=== PATIENT | female | born 1940 | race Caucasian/White ===

== ENCOUNTER 2021-03-26 11:27 | Observation (INO) | payer OTHER, MEDICARE ==
[2021-03-26] MEDS ORDERED: NA CHLORIDE 0.9% 1,000 ML ONE (11:37)
[2021-03-26] MEDS ORDERED: METOPROLOL TARTRATE 5 MG/5 ML INJ IV ONE (11:47)
[2021-03-26] MEDS ORDERED: MAGNESIUM SULFATE 1 gm IVPB 1 GM/100 ML BAG IV ONE (11:47)
[2021-03-26] MEDS ORDERED: METOPROLOL TAR 25 MG TAB ONE (11:47)
[2021-03-26 12:02] LABS: Potassium 4.6 mmol/L (3.5-5.1)
[2021-03-26 12:06] LABS: Absolute Lymphocytes (CBC) 3.5 K/uL (0.7-4.9); Hematocrit 41.2 % (36.0-45.0); Lymphocytes % 37.4 % (15.3-44.8); MPV 8.1 fL (7.6-11.3); RBC Red Blood Cell Count 4.57 M/uL (3.86-4.86)
[2021-03-26 14:12] LABS: Urine Blood Negative (Negative); Urine Glucose 3+ (Negative); Urine Protein Negative (Negative)
--- NOTE | 2021-03-26 14:19 | EDPHYS ---
Physician Documentation [facility] Name: Margarita Lockett Age: 80 yrs Sex: Female : 1940 Arrival Date: 03/26/2021 Time: 11:29 Bed 5 Private MD: ED Physician Khanh Long HPI: 03/26 14:12 This 80 yrs old Female presents to ER via EMS with complaints of Dizziness. rn 14:12 The patient presents with dizziness, feeling faint, lightheadedness. Onset: The rn symptoms/episode began/occurred today. Modifying factors: The symptoms are alleviated by nothing, the symptoms are aggravated by nothing. Associated signs and symptoms: Pertinent positives: palpitations, Pertinent negatives: abdominal pain, focal weakness, headache, seizure, shortness of breath. Severity of symptoms: At their worst the symptoms were moderate in the emergency department the symptoms are unchanged. The patient has not experienced similar symptoms in the past. The patient has been recently seen by a physician:. Patient states seen yesterday at [facility] emergency room for dizziness, told had a UTI and put on antibiotics. Today felt increase in dizziness and lightheadedness. No syncope. Reports palpitations. No history of arrhythmia. Does not take anticoagulation. Denies vomiting or diarrhea. Denies chest pain.. Historical: - Allergies: : No Known Allergies; herrmann - Home Meds: : aspirin 81 mg Oral tab [Active]; omeprazole 20 mg Oral cpDR 1 cap once daily [Active]; herrmann metformin 500 mg Oral TG24 2 tabs once daily [Active]; glipizide 10 mg Oral tab 1 tab once daily [Active]; carvedilol 6.25 mg oral tab 1 tab 2 times per day [Active]; lisinopril 20 mg Oral tab 1 tab once daily [Active]; amlodipine 5 mg tab 1 tab once daily [Active]; estradiol 2 mg Oral tab 1 tab once daily [Active]; Jardiance 25 mg oral tab 1 tab once daily [Active]; Vitamin D Oral [Active]; Ocuvite Adult 50 Plus 250-5-1 mg oral cap [Active]; pravastatin 80 mg oral tab 1 tab once daily [Active]; Januvia 100 mg oral tab 1 tab once daily [Active]; - PMHx: : Unable to Obtain; herrmann - PSHx: 11:33 Unable to Obtain; herrmann - Immunization history:: Adult Immunizations up to date. - Social history:: Smoking status: Patient denies any tobacco usage or history of. - Family history:: not pertinent. - Hospitalizations: : No recent hospitalization is reported. ROS: 14:12 Constitutional: Negative for fever, chills, and weight loss, Eyes: Negative for injury, rn pain, redness, and discharge, Neck: Negative for injury, pain, and swelling, Cardiovascular: Positive for palpitations Respiratory: Negative for shortness of breath, cough, wheezing, and pleuritic chest pain, Abdomen/GI: Negative for abdominal pain, nausea, vomiting, diarrhea, and constipation, Back: Negative for injury and pain, : Positive for dysuria MS/Extremity: Negative for injury and deformity, Skin: Negative for injury, rash, and discoloration, Neuro: Positive for generalized weakness Exam: 14:12 Constitutional: This is a well developed, well nourished patient who is awake, alert, rn and in no acute distress. Head/Face: Normocephalic, atraumatic. Eyes: Periorbital areas with no swelling, redness, or edema. ENT: Dry mucous membranes Cardiovascular: Tachycardic, regular. No pulse deficits Respiratory: No increased work of breathing, no retractions or nasal flaring. Abdomen/GI: Soft, non-tender Skin: Warm, dry MS/ Extremity: Pulses equal, no cyanosis. Neuro: Awake and alert, GCS 15 Vital Signs: 11:29 BP 136 / 105; Pulse 129; Resp 20; Temp 98.3(O); Pulse Ox 100% ; Weight 68.95 kg; Height herrmann 5 ft. 7 in. (170.18 cm); 13:18 BP 108 / 65; Pulse 90; Resp 16; Pulse Ox 97% ; ic1 13:39 BP 107 / 69; Pulse 87; Resp 15; Pulse Ox 95% ; jl7 18:21 BP 118 / 53; Pulse 66; Resp 16; Pulse Ox 97% on R/A; ic1 19:20 BP 131 / 63; Pulse 64; Resp 18; Pulse Ox 96% on R/A; mk 20:20 BP 135 / 64; Pulse 70; Resp 18; Pulse Ox 95% on R/A; mk 11:29 Body Mass Index 23.81 (68.95 kg, 170.18 cm) herrmann [place] Coma Score: 19:20 Eye Response: spontaneous(4). Verbal Response: oriented(5). Motor Response: obeys mk commands(6). Total: 15. 20:20 Eye Response: spontaneous(4). Verbal Response: oriented(5). Motor Response: obeys mk commands(6). Total: 15. MDM: 11:29 Patient medically screened. rn 14:12 Differential diagnosis: generalized weakness, hypovolemia, idiopathic dizziness, rn Arrhythmia, dehydration, sepsis, infection. Data reviewed: vital signs, nurses notes, lab test result(s), EKG, and as a result, I will admit patient. Counseling: I had a detailed discussion with the patient and/or guardian regarding: the historical points, exam findings, and any diagnostic results supporting the discharge/admit diagnosis, lab results, the need for outpatient follow up, to return to the emergency department if symptoms worsen or persist or if there are any questions or concerns that arise at home. Response to treatment: the patient's symptoms have markedly improved after treatment, and as a result, I will admit patient. Admission orders: after a detailed discussion of the patient's condition and case, the admit orders are written by me. Special discussion:. 03/26 11:29 Order name: CBC with Diff; Complete Time: 13:39 rn 03/26 11:29 Order name: Basic Metabolic Panel; Complete Time: 13:39 03/26 11:29 Order name: Blood Culture Adult (2) rn 03/26 11:29 Order name: Procalcitonin; Complete Time: 13:39 rn 03/26 11:29 Order name: Lactate; Complete Time: 13:39 rn 03/26 11:29 Order name: Urine Culture rn 03/26 11:29 Order name: Urine Microscopic Only rn 03/26 11:30 Order name: COVID-19 SARS RT PCR (Document "Date of Onset" if Symptomatic); Complete rn Time: 13:39 03/26 14:13 Order name: Urine Dipstick-Ancillary [facility] 03/26 15:29 Order name: Comprehensive Metabolic Panel [facility] 03/26 15:29 Order name: Comprehensive Metabolic Panel [facility] 03/26 15:29 Order name: T4 Free [facility] 03/26 15:29 Order name: Thyroid Stimulating Hormone [facility] 03/26 15:29 Order name: CBC with Automated Diff EDMS 03/26 11:29 Order name: IV Start; Complete Time: 11:47 rn 03/26 11:29 Order name: Urine Dipstick-Ancillary (obtain specimen); Complete Time: 14:16 rn 03/26 11:29 Order name: EKG; Complete Time: 11:30 rn 03/26 11:29 Order name: EKG - Nurse/Tech; Complete Time: 11:45 rn 03/26 15:28 Order name: CONS Physician Consult EDUT 03/26 15:29 Order name: 60g Consistent Carbohydrate (ADA 1800/2000) EDMS 03/26 15:29 Order name: CBC with Automated Diff EDMS 03/26 15:29 Order name: Magnesium EDUT 03/26 15:29 Order name: Magnesium EDUT Administered Medications: 11:47 Drug: NS 0.9% 1000 ml Route: IV; Rate: 1000 ml; Site: right antecubital; ic1 11:50 Drug: Metoprolol 25 mg Route: PO; jl7 11:50 Drug: Metoprolol 5 mg Route: IVP; Site: left antecubital; jl7 11:52 Drug: Magnesium Sulfate 1 grams Route: IVPB; Infused Over: 1 hrs; Site: left jl7 antecubital; 11:55 Drug: Metoprolol 5 mg Route: IVP; Site: left antecubital; jl7 12:00 Drug: Metoprolol 5 mg Route: IVP; Site: left antecubital; jl7 Disposition Summary: 03/26/21 14:19 Hospitalization Ordered Hospitalization Status: Observation rn Provider: Ant Long rn Location: Telemetry/[facility] (observation) rn Condition: Stable rn Problem: new rn Symptoms: have improved rn Bed/Room Type: Standard rn Room Assignment: 220(03/26/21 19:43) cg Diagnosis - Unspecified atrial fibrillation - with RVR rn - Dehydration rn - Dizziness and giddiness rn Forms: - Medication Reconciliation Form rn - SBAR form arnp time excluding procedures: 14:12 Critical care time: Bedside Care: 30 minutes, Consultation: 5 minutes. Total time: 35 rn minutes Signatures: Dispatcher Med[facility] EDUT Khanh Long MD MD rn Garcia, Cindy, RN RN cg Leal, Jahala, RN RN jl7 Gila Shi RN RN herrmann Idalmis Logan RN RN ic1 Corrections: (The following items were deleted from the chart) 19:43 14:19 rn cg
--- NOTE | 2021-03-26 14:19 | ER ---
Nurse's Notes [facility] Name: Margarita Lockett Age: 80 yrs Sex: Female : 1940 Arrival Date: 03/26/2021 Time: 11:29 Bed 5 Private MD: Diagnosis: Unspecified atrial fibrillation-with RVR;Dehydration;Dizziness and giddiness Presentation: 03/26 11:29 Chief complaint: Patient states: pt presented to ED with dizziness, and recent UTI herrmann taking antibiotics. Coronavirus screen: Vaccine status: Patient reports receiving the 2nd dose of the covid vaccine. Ebola Screen: Patient denies travel to an Ebola-affected area in the 21 days before illness onset. Initial Sepsis Screen: Does the patient meet any 2 criteria? No. Patient's initial sepsis screen is negative. Does the patient have a suspected source of infection? No. Patient's initial sepsis screen is negative. Risk Assessment: Do you want to hurt yourself or someone else? Patient reports no desire to harm self or others. Onset of symptoms was March 26, 2021. 11: Method Of Arrival: EMS: Post EMS : Acuity: GURPREET 3 herrmann Historical: - Allergies: : No Known Allergies; herrmann - Home Meds: : aspirin 81 mg Oral tab [Active]; omeprazole 20 mg Oral cpDR 1 cap once daily [Active]; herrmann metformin 500 mg Oral TG24 2 tabs once daily [Active]; glipizide 10 mg Oral tab 1 tab once daily [Active]; carvedilol 6.25 mg oral tab 1 tab 2 times per day [Active]; lisinopril 20 mg Oral tab 1 tab once daily [Active]; amlodipine 5 mg tab 1 tab once daily [Active]; estradiol 2 mg Oral tab 1 tab once daily [Active]; Jardiance 25 mg oral tab 1 tab once daily [Active]; Vitamin D Oral [Active]; Ocuvite Adult 50 Plus 250-5-1 mg oral cap [Active]; pravastatin 80 mg oral tab 1 tab once daily [Active]; Januvia 100 mg oral tab 1 tab once daily [Active]; - PMHx: : Unable to Obtain; herrmann - PSHx: : Unable to Obtain; herrmann - Immunization history:: Adult Immunizations up to date. - Social history:: Smoking status: Patient denies any tobacco usage or history of. - Family history:: not pertinent. - Hospitalizations: : No recent hospitalization is reported. Screenin:48 Abuse screen: Denies threats or abuse. Denies injuries from another. Nutritional ic1 screening: No deficits noted. Tuberculosis screening: No symptoms or risk factors identified. Fall Risk None identified. Exposure risk/Travel Screening: None identified. Assessment: 11:48 General: Appears in no apparent distress. Behavior is calm, cooperative, Reports Pt ic1 brought in by EMS for reports of not feeling well. States she was recently treated for a uti and prescribed antibiotics, but symptoms remain. Pt denies fever, sob, or cp. Arrived and placed on color television console monitor where HR results at 145bpm. EKG performed. Pt denies distress. Pain: Denies pain. Neuro: No deficits noted. Cardiovascular: Rhythm is sinus tachycardia Chest pain is denied. Respiratory: No deficits noted. GI: No deficits noted. : Reports burning with urination. EENT: No deficits noted. Derm: No deficits noted. Musculoskeletal: No deficits noted. 12:17 Reassessment: Pt placed on bedpan. Stated she was unable to void. Removed from bedpan. ic1 Family at bedside. 19:20 General: Appears in no apparent distress. Behavior is calm, cooperative. mk 19:20 Neuro: Level of Consciousness is awake, alert, obeys commands. Cardiovascular: Heart mk tones S1 S2 Capillary refill < 3 seconds in bilateral fingers toes Clubbing of nail beds is absent JVD is absent Patient's skin is warm and dry. Pulses are 2+ in right radial artery, right dorsalis pedis artery, left radial artery and left dorsalis pedis artery Rhythm is sinus rhythm Chest pain is denied. Respiratory: Airway is patent Trachea midline Respiratory effort is even, unlabored, Respiratory pattern is regular, symmetrical, Breath sounds are clear. GI: Abdomen is non-distended, Bowel sounds present X 4 quads. : No signs and/or symptoms were reported regarding the genitourinary system. Derm: Skin is fragile, Skin is dry, Skin temperature is warm. Musculoskeletal: Circulation, motion, and sensation intact. Capillary refill < 3 seconds, in bilateral fingers. toes. Range of motion: intact in all extremities. 20:32 Reassessment: Patient appears in no apparent distress at this time. No changes from mk previously documented assessment. Patient states feeling better. Vital Signs: 11:29 BP 136 / 105; Pulse 129; Resp 20; Temp 98.3(O); Pulse Ox 100% ; Weight 68.95 kg; Height herrmann 5 ft. 7 in. (170.18 cm); 13:18 BP 108 / 65; Pulse 90; Resp 16; Pulse Ox 97% ; ic1 13:39 BP 107 / 69; Pulse 87; Resp 15; Pulse Ox 95% ; jl7 18:21 BP 118 / 53; Pulse 66; Resp 16; Pulse Ox 97% on R/A; ic1 19:20 BP 131 / 63; Pulse 64; Resp 18; Pulse Ox 96% on R/A; mk 20:20 BP 135 / 64; Pulse 70; Resp 18; Pulse Ox 95% on R/A; mk 11:29 Body Mass Index 23.81 (68.95 kg, 170.18 cm) herrmann Vitals: 11:48 Cardiac Rhythm Assessment Regular Sinus tach. ic1 [place] Coma Score: 19:20 Eye Response: spontaneous(4). Verbal Response: oriented(5). Motor Response: obeys commands(6). Total: 15. 20:20 Eye Response: spontaneous(4). Verbal Response: oriented(5). Motor Response: obeys mk commands(6). Total: 15. ED Course: 11:29 Patient arrived in ED. rn 11:29 Khanh Long MD is Attending Physician. rn 11:33 Triage completed. herrmann 11:33 Arm band placed on. herrmann 11:46 Idalmis Logan RN is Primary Nurse. ic1 11:47 Procalcitonin Sent. ic1 11:47 Blood Culture Adult (2) Sent. ic1 11:47 Basic Metabolic Panel Sent. ic1 11:47 CBC with Diff Sent. ic1 11:47 Inserted saline lock: 20 gauge in right antecubital area, using aseptic technique. ic1 Blood collected. 11:47 Inserted saline lock: 20 gauge in left antecubital area, using aseptic technique. Blood ic1 collected. 11:48 Patient has correct armband on for positive identification. Bed in low position. Call ic1 light in reach. Side rails up X2. Adult w/ patient. 14:18 Ant Long MD is Hospitalizing Provider. rn 20:32 No provider procedures requiring assistance completed. Patient admitted, IV remains in mk place. Administered Medications: 11:47 Drug: NS 0.9% 1000 ml Route: IV; Rate: 1000 ml; Site: right antecubital; ic1 11:50 Drug: Metoprolol 25 mg Route: PO; jl7 11:50 Drug: Metoprolol 5 mg Route: IVP; Site: left antecubital; jl7 11:52 Drug: Magnesium Sulfate 1 grams Route: IVPB; Infused Over: 1 hrs; Site: left jl7 antecubital; 11:55 Drug: Metoprolol 5 mg Route: IVP; Site: left antecubital; jl7 12:00 Drug: Metoprolol 5 mg Route: IVP; Site: left antecubital; jl7 Outcome: 14:19 Decision to Hospitalize by Provider. rn 19:45 Admitted to Med/surg Report called to Attempted to call report. Was told the nurse frank stanley would be the accepting nurse. 20:32 Admitted to Med/surg Report called to Janina REID 20:32 Condition: stable 20:32 Patient left the ED. Signatures: Khanh Long MD MD rn Leal, Jahala, RN RN jl7 Wood, Tiffany [facility] Kyra-StagerGila RN Bridget Park RN Idalmis Dewitt RN RN ic1 Corrections: (The following items were deleted from the chart) 20:29 19:20 BP 135 / 64; Pulse 70bpm; Resp 18bpm; Pulse Ox 95% RA; [facility] 20:32 19:20 General: Appears in no apparent distress. Behavior is calm, cooperative, [facility] 20:32 19:20 Cardiovascular: Heart tones S1 S2 present Rhythm is sinus rhythm [facility]
[2021-03-26 14:38] LABS: Urine Bacteria 20-50 /HPF (<20); Urine RBC NONE SEEN /HPF (NONE SEEN)
[2021-03-26] MEDS ORDERED: ONDANSETRON 4 MG/2 ML VIAL IV PRN (15:28)
--- NOTE | 2021-03-26 15:36 | P.HP ---
Certification for Inpatient Patient admitted to: Observation With expected LOS: <2 Midnights Practitioner: I am a practitioner with admitting privileges, knowledge of patient current condition, hospital course, and medical plan of care. Services: Services provided to patient in accordance with Admission requirements found in Title 42 Section 412.3 of the Code of Federal Regulations Patient History Date of Service: 03/26/21 Reason for admission: afib History of Present Illness: 80yo M, PMH: HTN, NIDDM2, GERD Presents to ED due to 3 days of progressively worsening dizziness. Dizziness mostly occurred with ambulation/activity and subsided once resting. Presented to [facility] yesterday and diagnosed with UTI. Prescribed bactrim and discharged home. She reported dysuria that began ~2 days ago. Noted to some blood in her urine at [place], but non since then. Denies fever/chills/nausea/vomiting/diarrhea. In the ED here, she was noted to be in afib with RVR to 130s. Received several doses of IV metoprolol and converted to sinus rhythm. Labs rather unremarkable except for slight elevated Cr. Urine pending. ED physician requests admission for further evaluation / management. - Past Medical/Surgical History -: HTN -: NIDDM2 -: GERD -: Hiatal hernia -: cholecystectomy -: appendectomy -: hysterectomy -: rotator cuff - Family History Family History: Reviewed- Non-Contributory - Social History Smoking Status: Never smoker Alcohol use: No Place of Residence: Home Review of Systems 10-point ROS is otherwise unremarkable Physical Examination - Physical Exam General: Alert, In no apparent distress, Oriented x3 HEENT: Mucous membr. moist/pink, Sclerae nonicteric Neck: Supple Respiratory: Clear to auscultation bilaterally, Normal air movement Cardiovascular: No edema, Regular rate/rhythm (occasional extra beat), No murmurs Gastrointestinal: Soft and benign, Non-distended, No tenderness Musculoskeletal: No tenderness Integumentary: No significant lesion, No tenderness/swelling Neurological: Normal speech, Normal strength at 5/5 x4 extr, Normal affect - Studies Laboratory Data (last 24 hrs) 03/26/21 11:35: Sodium 135 L, Potassium 4.6, BUN 21 H, Creatinine 1.46 H, Glucose 165 H 03/26/21 11:35: WBC 9.20, Hgb 13.8, Hct 41.2, Plt Count 327 Assessment and Plan - Advance Directives Does patient have a Living Will: No Does patient have a Durable POA for Healthcare: No Physician Review Additional Text: Problem List Afib with RVR; new diagnosis UTI, with hematuria Hypertension NIDDM 2 GERD Possible ANTIONETTE Received 3 doses of IV metoprolol, 25 mg p.o. metoprolol Will continue on 50 mg Lopressor twice daily Started Xarelto, [id number] score greater than 2 Denies any prior bleeding history, no frequent falls Monitor on telemetry Cardiology consulted, recommend echocardiogram tomorrow Continue Bactrim for treatment of UTI that was diagnosed stand-alone ER yesterday Obtain UA today, check for microscopic hematuria Suspect A. fib with RVR was causing patient's dizziness Need to confirm home medications, restart as appropriate IV fluids overnight for possible ANTIONETTE VTE: Xarelto Code: DNR Dispo: Anticipate DC home in 1-2 days Time Spent Managing Pts Care (In Minutes): 60
[2021-03-26 16:26] LABS: Thyroid Stimulating Hormone 1.48 uIU/mL (0.360-3.740)
[2021-03-26] MEDS: INSULIN -REGULAR HUMAN 50 UNIT/0.5 ML ML SQ SCH ×2 (16:30→21:00)
[2021-03-26 17:54] VITALS: O2SAT 98
[2021-03-26] MEDS ORDERED: RIVAROXABAN 10 MG TABLET PO SCH (20:05)
[2021-03-26 21:30] VITALS: BMI 25.2
[2021-03-26] MEDS: SMZ./TMP. 800/160 MG TABLET PO SCH (21:32)
[2021-03-26] MEDS: METOPROLOL TAR 50 MG TAB PO SCH (21:33)
[2021-03-26] MEDS: NA CHLORIDE 0.9% 1,000 ML IV SCH (21:34)
[2021-03-27] MEDS: METOPROLOL TAR 50 MG TAB PO SCH (05:37)
[2021-03-27] MEDS: NA CHLORIDE 0.9% 1,000 ML IV SCH (05:39)
--- NOTE | 2021-03-27 06:07 | P.PN ---
Date of Service: 03/27/21
[2021-03-27 06:32] LABS: Absolute Lymphocytes (CBC) 3.1 K/uL (0.7-4.9); Hematocrit 36.8 % (36.0-45.0); Lymphocytes % 34.8 % (15.3-44.8); MPV 7.8 fL (7.6-11.3); RBC Red Blood Cell Count 4.11 M/uL (3.86-4.86)
[2021-03-27 06:46] LABS: Albumin 2.5 g/dL (3.4-5.0); Bilirubin Total 0.2 mg/dL (0.2-1.0); Potassium 4.3 mmol/L (3.5-5.1); Protein, Total 5.8 g/dL (6.4-8.2)
[2021-03-27] MEDS: INSULIN -REGULAR HUMAN 50 UNIT/0.5 ML ML SQ SCH ×2 (07:30→11:30)
--- NOTE | 2021-03-27 08:04 | EKG ---
Test Date: 2021-03-26 Test Time: 11:33:53 Senior Bi Architect: UVALDO MEASUREMENT RESULTS: Intervals: Rate: 141 TX: QRSD: 82 QT: 356 QTc: 545 Coyle: P: TX: QRS: 25 T: 251 INTERPRETIVE STATEMENTS: Atrial flutter with 2:[address] abnormality, possible inferior subendocardial injury Abnormal ECG Compared to ECG 05/09/1992 10:21:00 ST (T wave) deviation now present Sinus rhythm no longer present Electronically Signed On 03-27-21 08:02:48 LIFT TEAM TECHNICIAN by Hakan Lehman
[2021-03-27] MEDS: SMZ./TMP. 800/160 MG TABLET PO SCH (09:15)
--- NOTE | 2021-03-27 11:15 | CON ---
Date of Consultation: 03/27/2021 Reason For Consultation: Atrial fibrillation and dizziness. History Of Present Illness: Ms. Lockett is a 80. No previous cardiac history. Came in with godfrey chavez, was found to have UTI and atrial fibrillation. Unknown if the AFib is new or old. She does ta ke beta-blockers at home. She is on Xarelto now. She is asymptomatic now. She is a do not resuscit ate. Denies any chest pain, nausea, vomiting, diaphoresis, PND, orthopnea, pedal edema, palpitations , or syncope. Symptoms occurred while she was standing up. Allergies: SHE IS ALLERGIC TO PENICILLIN. Review of Systems: Negative. Social History: Negative. Family History: Negative. Medications: At home include pravastatin, Pepcid, metformin, Coreg, aspirin, Norvasc, lisinopril, hy drochlorothiazide, Jardiance, glipizide. The patient sees Dr. Roderick Gregg for primary care. Physical Examination: General: Very pleasant, in no acute distress Vital Signs: Atrial fibrillation, rate 60, normal blood pressure. Afebrile. HEENT: Negative. Neck: Supple without any bruit, lymphadenopathy, JVD, or thyromegaly. Chest: Clear. Cardiac: Revealed irregularly irregular rhythm and rate without any murmurs, gallops, or rubs. Abdomen: Benign. Extremities: Revealed no clubbing, cyanosis, or edema. Diagnostic Data: Showed a creatinine 1.46. EKG showed atrial fibrillation. Chest x-ray is negative . Glucose was 178. Impression And Plan: 1.Dizziness, possibly secondary to atrial fibrillation or orthostasis. I agree with her present reg imen. I would keep her same medications at home and add Xarelto. Obtain a 2D echocardiogram. Arran for an outpatient stress test. Can go home whenever it is okay with Dr. Long. 2.Urinary tract infection. She needs to be treated for that. She is already on Bactrim. 3.Renal insufficiency. We need to observe. 4.Diabetes, fairly well controlled. 5.Hypertension, well controlled. 6.Gastroesophageal reflux disease. 7.Dyslipidemia. Again, get an echocardiogram. Continue Xarelto. Continue beta-ricardo. Send her home after the echo. I will see her in the office soon and arrange for the stress test. As far as a trial fibrillation and she stays asymptomatic, we will keep her on Xarelto and beta-ricardo. If she develops symptoms, we will consider event monitor, cardioversion or further workup down the road. CHEPE/HEBER Voice ID: [id number] Report ID: [id number]
[2021-03-27 13:18] VITALS: BP 133/64; TEMP 98
--- NOTE | 2021-03-27 14:55 | ECHO ---
HEIGHT: 5 ft 7 in WEIGHT: 161 lb 2 oz DATE OF STUDY: 03/27/[address]: Ant Long MD 2-DIMENSIONAL: YES M.MODE: YES DOPPLER: YES COLOR FLOW: YES TDS: NO PORTABLE: NO DEFINITY: NO BUBBLE STUDY: NO DIAGNOSIS: NEW ONSET OF ATRIAL FIBRILLATION CARDIAC HISTORY: CATHERIZATION: NO SURGERY: NO PROSTHETIC VALVE: NO PACEMAKER: NO MEASUREMENTS (cm) DIASTOLIC (NORMALS) SYSTOLIC (NORMALS) IVSd 1.1 (0.6-1.2) LA Diam 2.4 (1.9-4.0) LVEF 55-60% LVIDd 3.7 (3.5-5.7) LVIDs 2.7 (2.0-3.5) %FS 26% LVPWd 1.2 (0.6-1.2) Ao Diam (2.0-3.7) 2 DIMENSIONAL ASSESSMENT: RIGHT ATRIUM: NORMAL LEFT ATRIUM: NORMAL RIGHT VENTRICLE: NORMAL LEFT VENTRICLE: NORMAL TRICUSPID VALVE: NORMAL MITRAL VALVE: NORMAL PULMONIC VALVE: NORMAL AORTIC VALVE: CALCIFICATION PERICARDIAL EFFUSION: NONE AORTIC ROOT: NORMAL LEFT VENTRICULAR WALL MOTION: NORMAL DOPPLER/COLOR FLOW: MILD MITRAL REGURGITATION. COMMENTS: NORMAL LEFT VENTRICULAR EJECTION FRACTION 55-60%. MILD MITRAL REGURGITATION. AORTIC VALVE IS MILDLY CALCIFIED WITH NO AORTIC STENOSIS. TECHNOLOGIST: Radha VARGAS
--- NOTE | 2021-03-27 17:36 | P.DS ---
Admission Date: 03/26/21 Discharge Date: 03/27/21 Disposition: ROUTINE DISCHARGE Discharge Condition: GOOD Reason for Admission: afib Consultations: Cardiology - Dr. Lehman Procedures: Problem List Afib with RVR; new diagnosis UTI, with hematuria Hypertension NIDDM 2 GERD Possible ANTIONETTE Brief History of Present Illness: 80yo M, PMH: HTN, NIDDM2, GERD Presents to ED due to 3 days of progressively worsening dizziness. Dizziness mostly occurred with ambulation/activity and subsided once resting. Presented to [facility] yesterday and diagnosed with UTI. Prescribed bactrim and discharged home. She reported dysuria that began ~2 days ago. Noted to some blood in her urine at [place], but non since then. Denies fever/chills/nausea/vomiting/zuleyma rrhea. In the ED here, she was noted to be in afib with RVR to 130s. Received several doses of IV metoprolol and converted to sinus rhythm. Labs rather unremarkable except for slight elevated Cr. Urine pending. ED physician requests admission for further evaluation / management. Hospital Course: Found to have Afib. This improved with IV beta ricardo, and remained stable after switching to PO. Evaluated by Cardiology, underwent an echocardiogram. Deemed stable for discharge home, to continue home medications as previously prescribed. No change in carvedilol dosing. New prescription for xarelto has been sent. Follow up with Cardiology, Dr. Lehman in ~1-2 weeks. To review echocardiogram results at follow up visit. Vital Signs/Physical Exam: Physical exam GEN: Alert, oriented, NAD HEENT: Normal conjunctiva, sclera anicteric CV: Regular rate and rhythm, no edema Pulm: Nonlabored respirations on room air ABD: Soft, nontender, nondistended Neuro: Normal speech, normal affect Temp Pulse Resp BP Pulse Ox 98 F 64 18 133/64 96 03/27/21 12:00 03/27/21 12:00 03/27/21 12:00 03/27/21 12:00 03/27/21 12:00 Laboratory Data at Discharge: WBC 9.00 K/uL (4.3-10.9) 03/27/21 05:55 Hgb 12.7 g/dL (12.0-15.0) 03/27/21 05:55 Hct 36.8 % (36.0-45.0) 03/27/21 05:55 Plt Count 301 K/uL (152-406) 03/27/21 05:55 Sodium 136 mmol/L (136-145) 03/27/21 05:55 Potassium 4.3 mmol/L (3.5-5.1) 03/27/21 05:55 BUN 19 mg/dL (7-18) H 03/27/21 05:55 Creatinine 1.13 mg/dL (0.55-1.3) 03/27/21 05:55 Glucose 99 mg/dL (74-106) 03/27/21 05:55 Magnesium 2.0 mg/dL (1.8-2.4) 03/27/21 05:55 Total Bilirubin 0.2 mg/dL (0.2-1.0) 03/27/21 05:55 AST 10 U/L (15-37) L 03/27/21 05:55 ALT 14 U/L (12-78) 03/27/21 05:55 Alkaline Phosphatase 59 U/L (45-117) 03/27/21 05:55 Home Medications: Amlodipine [Norvasc*] 10 mg PO DAILY 03/27/21 Aspirin [Aspirin EC] 1 tab PO DAILY 03/27/21 Empagliflozin [Jardiance] 1 tab PO DAILY 03/27/21 Glipizide [Glipizide Xl] 1 tab PO DAILY 03/27/21 Lisinopril/Hydrochlorothiazide [Lisinopril-Hctz 20-25 mg Tab] 1 tab PO DAILY 03/27/21 Metformin ER [Glucophage ER*] 1,000 mg PO BID 03/27/21 Multivit-Min/FA/Lycopen/Lutein [Centrum Silver Tablet] 1 tab PO DAILY 03/27/21 Omeprazole 20 mg PO DAILY 03/27/21 Pravastatin Sodium 1 tab PO BEDTIME 03/27/21 Rivaroxaban [Xarelto] 20 mg PO DAILY AT SUPPER 30 Days #30 tablet 03/27/21 Sitagliptin Phosphate [Januvia*] 1 tab PO BEDTIME 03/27/21 Vit A,C & E/Lutein/Minerals [Ocuvite Tablet] 1 tab PO BEDTIME 03/27/21 Vitamin D [Drisdol*] 1 tab PO BEDTIME 03/27/21 carvediloL [Carvedilol] 1 tab PO BID 03/27/21 estradioL [Estradiol] 2 mg PO DAILY 03/27/21 New Medications: Rivaroxaban [Xarelto] 20 mg PO DAILY AT SUPPER 30 Days #30 tablet Physician Discharge Instructions: Found to have Afib. This improved with IV beta ricardo, and remained stable after switching to pills. Evaluated by Cardiology, underwent an echocardiogram. Deemed stable for discharge home, to continue home medications as previously prescribed. No change in carvedilol dosing. New prescription for xarelto has been sent. Follow up with Cardiology, Dr. Lehman in ~1-2 weeks. To review echocardiogram results at follow up visit. Diet: AHA Activity: Ad rehan Followup: Hakan Lehman MD [ACTIVE - CAN ADMIT] - 1-2 Weeks (alignment technician- call to schedule an appointment ) Alex Gregg DO [Primary Care Provider] - 1 Week (call to schedule an appointment ) Time spent managing pt's care (in minutes): 45
== END 2021-03-27 12:50 | disposition home or self-care (01) ==
LOC: ER 11:27 → ERHOLD 15:27 → 2ND 19:46
PROVIDERS: ADMIT Hospitalist; ATTEND Hospitalist
DX: I48.91 Unspecified atrial fibrillation (principal); N39.0 Urinary tract infection, site not specified; R31.9 Hematuria, unspecified; E86.0 Dehydration; I10 Essential (primary) hypertension; N28.9 Disorder of kidney and ureter, unspecified; R42 Dizziness and giddiness; E11.9 Type 2 diabetes mellitus without complications; K21.9 Gastro-esophageal reflux disease without esophagitis; K44.9 Diaphragmatic hernia without obstruction or gangrene; E78.5 Hyperlipidemia, unspecified; Z66 Do not resuscitate; Z20.822 Contact with and (suspected) exposure to COVID-19; Z79.82 Long term (current) use of aspirin; Z88.0 Allergy status to penicillin; Z90.49 Acquired absence of other specified parts of digestive tract; Z90.710 Acquired absence of both cervix and uterus
CPT/HCPCS: 93005 ×2; 93306; 87040 ×2; 87088; 85025 ×2; 87086; 80048; 36415 ×2; 83735; 82947 ×3; 83605; 84443; 84439; 80053; 84145; 94760; 96375; 96374; 99285; U0003; J3475; J7030 ×3; 81003; 81015; G0378

== ENCOUNTER 2021-03-28 15:20 | Observation (INO) | payer OTHER, MEDICARE ==
[2021-03-28 15:56] LABS: Absolute Lymphocytes (CBC) 3.6 K/uL (0.7-4.9); Hematocrit 40.1 % (36.0-45.0); Lymphocytes % 38.4 % (15.3-44.8); MPV 8.1 fL (7.6-11.3); RBC Red Blood Cell Count 4.48 M/uL (3.86-4.86)
[2021-03-28 15:57] LABS: Protime INR 0.79
--- NOTE | 2021-03-28 16:09 | RAD REPORT ---
EXAM DESCRIPTION: RAD - Chest Single View - 03/28/2021 4:03 pm CLINICAL HISTORY: PALPITATIONS Chest pain. COMPARISON: No comparisons FINDINGS: Portable technique limits examination quality. Interstitial markings are mildly prominent in the lung bases most compatible with a viral infection. The heart is upper limit of normal in size. No displaced fractures.
[2021-03-28 16:15] LABS: ALT/SGPT 16 U/L (12-78); AST/SGOT 13 U/L (15-37); Albumin 2.7 g/dL (3.4-5.0); Alkaline Phosphatase 69 U/L (45-117); BUN Blood Urea Nitrogen 20 mg/dL (7-18); Bicarbonate 25 mmol/L (21-32); Bilirubin Direct < 0.1 mg/dL (0-0.2); Bilirubin Total 0.3 mg/dL (0.2-1.0); Glucose Level 210 mg/dL (74-106); Magnesium 1.9 mg/dL (1.8-2.4); NT PRO-BNP 1084 pg/mL (<450); Potassium 3.9 mmol/L (3.5-5.1); Protein, Total 6.4 g/dL (6.4-8.2); Sodium Level 134 mmol/L (136-145)
[2021-03-28] MEDS ORDERED: dilTIAZem HCL 25 MG/5 ML VIAL IV ONE (16:22)
--- NOTE | 2021-03-28 18:10 | ER ---
Nurse's Notes [facility] Name: Margarita Lockett Age: 80 yrs Sex: Female : 1940 Arrival Date: 03/28/2021 Time: 15:20 Bed 8 Private MD: Diagnosis: Atrial fibrillation with RVR Presentation: 03/28 15:36 Chief complaint: Patient states: was just d/c from hospital for Afib on Saturday , iw started feeling her heart fluttering at 1:30 pm today, is currently on xarelto 29 nightly and carvedilol 6.25 BID. 15:43 Coronavirus screen: At this time, the client does not indicate any symptoms associated iw with coronavirus-19. Ebola Screen: Patient negative for fever greater than or equal to 101.5 degrees Fahrenheit, and additional compatible Ebola Virus Disease symptoms Patient denies exposure to infectious person. Patient denies travel to an Ebola-affected area in the 21 days before illness onset. No symptoms or risks identified at this time. Initial Sepsis Screen: Does the patient meet any 2 criteria? No. Patient's initial sepsis screen is negative. Does the patient have a suspected source of infection? No. Patient's initial sepsis screen is negative. Risk Assessment: Do you want to hurt yourself or someone else? Patient reports no desire to harm self or others. Onset of symptoms was March 28, 2021. 15:43 Method Of Arrival: Wheelchair 15:43 Acuity: GURPREET 2 iw Historical: - Allergies: 15:39 PENICILLINS; iw - Home Meds: 15:39 amlodipine 5 mg oral tab once daily [Active]; aspirin 81 mg Oral tab [Active]; iw carvedilol 6.25 mg Oral tab 1 tab 2 times per day [Active]; estradiol 2 mg Oral tab 1 tab once daily [Active]; glipizide 10 mg Oral tab 1 tab once daily [Active]; Januvia 100 mg Oral tab 1 tab once daily [Active]; Jardiance 25 mg Oral tab 1 tab once daily [Active]; lisinopril 20 mg Oral tab 1 tab once daily [Active]; metformin 500 mg Oral TG24 2 tabs once daily [Active]; Ocuvite Adult 50 Plus 250-5-1 mg Oral cap [Active]; omeprazole 20 mg Oral cpDR 1 cap once daily [Active]; pravastatin 80 mg Oral tab 1 tab once daily [Active]; Vitamin D Oral [Active]; - PMHx: 15:39 Diabetes mellitus; iw - Immunization history:: Client reports receiving the 2nd dose of the Covid vaccine. - Social history:: Smoking status: Patient denies any tobacco usage or history of. Screenin:41 Abuse screen: Denies threats or abuse. Nutritional screening: No deficits noted. vg1 Tuberculosis screening: No symptoms or risk factors identified. Fall Risk No fall in past 12 months (0 pts). No secondary diagnosis (0 pts). IV access (20 points). Ambulatory Aid- None/Bed Rest/Nurse Assist (0 pts). Gait- Normal/Bed Rest/Wheelchair (0 pts) Mental Status- Oriented to own ability (0 pts). Total Mccoy Fall Scale indicates No Risk (0-24 pts). Assessment: 15:39 General: Appears in no apparent distress. uncomfortable, Behavior is calm, cooperative. vg1 Pain: Denies pain. Neuro: Level of Consciousness is awake, alert, obeys commands, Oriented to person, place, time, situation. Cardiovascular: Patient's skin is warm and dry. Rhythm is atrial fibrillation with rapid ventricular response Chest pain is denied. Respiratory: Airway is patent Respiratory effort is even, unlabored, Respiratory pattern is regular, Denies shortness of breath. GI: Reports nausea, Patient currently denies vomiting. : No signs and/or symptoms were reported regarding the genitourinary system. EENT: No signs and/or symptoms were reported regarding the EENT system. Derm: Skin is pink, warm \T\ dry. Musculoskeletal: Circulation, motion, and sensation intact. 16:43 Reassessment: Patient appears in no apparent distress at this time. Patient and/or vg1 family updated on plan of care and expected duration. Pain level reassessed. Patient is alert, oriented x 3, equal unlabored respirations, skin warm/dry/pink. 17:45 Reassessment: Patient appears in no apparent distress at this time. Patient and/or vg1 family updated on plan of care and expected duration. Pain level reassessed. Patient is alert, oriented x 3, equal unlabored respirations, skin warm/dry/pink. states 'I can still feel the flutters'. Patient denies pain at this time. 18:46 Reassessment: Patient appears in no apparent distress at this time. No changes from vg1 previously documented assessment. Patient is alert, oriented x 3, equal unlabored respirations, skin warm/dry/pink. 20:13 Reassessment: pt states she isn't feeling too great and is fatigued. assisted pt with as6 bathroom via WC. Cardiovascular: Rhythm is atrial fibrillation. Vital Signs: 15:42 BP 134 / 75; Pulse 143; Resp 18 S; Pulse Ox 100% on R/A; Weight 73.48 kg; Height 5 ft. iw 7 in. (170.18 cm); 15:44 Temp 97.6; vg1 16:30 BP 101 / 56; Pulse 88; Resp 16; Pulse Ox 98% ; vg1 17:02 BP 110 / 57; Pulse 88; Resp 20; Pulse Ox 97% ; Pain 0/10; jh6 17:30 BP 107 / 53; Pulse 121; Resp 25; Pulse Ox 97% ; vg1 18:33 BP 98 / 68; Pulse 115; vg1 18:40 BP 114 / 90; Pulse 89; vg1 20:14 BP 108 / 97; Pulse 67; Resp 21 S; Pulse Ox 98% on R/A; as6 15:42 Body Mass Index 25.37 (73.48 kg, 170.18 cm) iw ED Course: 15:20 Patient arrived in ED. as 15:38 Danii Martins, RN is Primary Nurse. vg1 15:39 Alex Gregg MD is Attending Physician. sp3 15:41 Patient has correct armband on for positive identification. Placed in gown. Bed in low vg1 position. Call light in reach. Side rails up X 1. Adult w/ patient. field operations farm manager on. Pulse ox on. NIBP on. 15:41 Initial lab(s) drawn, by me, sent to lab. Inserted saline lock: 22 gauge in right vg1 antecubital area, using aseptic technique. ,using aseptic technique. completed by ED staff Blood collected. 15:42 Arm band placed on. iw 15:43 Triage completed. iw 16:03 XRAY Chest (1 view) In Process Unspecified. EDMS 18:09 Dada Yeung is Hospitalizing Provider. sp3 19:09 Primary Nurse role handed off by Danii Martins, RN mw2 19:50 Brent Pimentel, RN is Primary Nurse. as6 03/29 02:11 No provider procedures requiring assistance completed. Patient admitted, IV remains in as6 place. Administered Medications: 03/28 16:26 Drug: Cardizem (diltiazem) 10 mg Route: IVP; Site: right antecubital; jh6 03/29 02:12 Follow up: Response: No adverse reaction as6 03/28 18:37 Drug: Sotalol 80 mg Route: PO; vg1 03/29 02:12 Follow up: Response: No adverse reaction as6 03/28 18:38 Drug: Digoxin 0.5 mg Route: IVP; Site: right antecubital; vg1 03/29 02:12 Follow up: Response: No adverse reaction as6 Outcome: 03/28 18:09 Decision to Hospitalize by Provider. sp3 03/29 02:11 Admitted to ER Hold. [facility]. as6 Condition: stable 18:04 Patient left the ED. herrmann Signatures: Dispatcher [employer] Balbina Olson Irene, RN FRANKLIN Rukhsana Johnson mw2 Danii Martins RN RN vg1 Alex Gregg MD MD sp3 Brent Pimentel, FRANKLIN REID as6 Rae Downing RN RN 6 Gila Shi RN RN
--- NOTE | 2021-03-28 18:10 | EDPHYS ---
Physician Documentation [facility] Name: Margarita Lockett Age: 80 yrs Sex: Female : 1940 Arrival Date: 03/28/2021 Time: 15:20 Bed 8 Private MD: ED Physician Alex Gregg HPI: 03/28 17:35 This 80 yrs old Female presents to ER via Wheelchair with complaints of afib. sp3 17:35 A 80-year-old female with a history of diabetes and recent atrial fibrillation admitted sp3 and discharged by Dr. Lowry placed on Xarelto but states that when she was discharged she was in a normal rhythm and not in atrial fibrillation. Today insidiously approximately 3 to 4 hours prior to arrival she started getting palpitations presents to the ED for evaluation. Here her heart rate is in the 140s and irregular rhythm but she states that she is having no pain including chest pain, shortness of breath, back pain, nausea, jaw pain, left arm pain, abdominal pain, nausea, vomiting, diarrhea, or any other somatic symptoms at this time. Patient received a full work-up including cardiac consultation, echocardiogram, and ACS rule out while in the hospital.. Historical: - Allergies: 15:39 PENICILLINS; iw - Home Meds: 15:39 amlodipine 5 mg oral tab once daily [Active]; aspirin 81 mg Oral tab [Active]; iw carvedilol 6.25 mg Oral tab 1 tab 2 times per day [Active]; estradiol 2 mg Oral tab 1 tab once daily [Active]; glipizide 10 mg Oral tab 1 tab once daily [Active]; Januvia 100 mg Oral tab 1 tab once daily [Active]; Jardiance 25 mg Oral tab 1 tab once daily [Active]; lisinopril 20 mg Oral tab 1 tab once daily [Active]; metformin 500 mg Oral TG24 2 tabs once daily [Active]; Ocuvite Adult 50 Plus 250-5-1 mg Oral cap [Active]; omeprazole 20 mg Oral cpDR 1 cap once daily [Active]; pravastatin 80 mg Oral tab 1 tab once daily [Active]; Vitamin D Oral [Active]; - PMHx: 15:39 Diabetes mellitus; iw - Immunization history:: Client reports receiving the 2nd dose of the Covid vaccine. - Social history:: Smoking status: Patient denies any tobacco usage or history of. ROS: 17:37 Constitutional: Negative for fever, chills, and weight loss, Eyes: Negative for injury, sp3 pain, redness, and discharge, ENT: Negative for injury, pain, and discharge, Neck: Negative for injury, pain, and swelling, Respiratory: Negative for shortness of breath, cough, wheezing, and pleuritic chest pain, Abdomen/GI: Negative for abdominal pain, nausea, vomiting, diarrhea, and constipation, Back: Negative for injury and pain, MS/Extremity: Negative for injury and deformity, Skin: Negative for injury, rash, and discoloration, Neuro: Negative for headache, weakness, numbness, tingling, and seizure, Psych: Negative for depression, anxiety, suicide ideation, homicidal ideation, and hallucinations, Allergy/Immunology: Negative for hives, rash, and allergies. 17:37 All other systems are negative. Exam: 17:37 Constitutional: This is a well developed, well nourished patient who is awake, alert, sp3 and in no acute distress. Head/Face: Normocephalic, atraumatic. Eyes: Pupils equal round and reactive to light, extra-ocular motions intact. Lids and lashes normal. Conjunctiva and sclera are non-icteric and not injected. Cornea within normal limits. Periorbital areas with no swelling, redness, or edema. ENT: Nares patent. No nasal discharge, no septal abnormalities noted. External auditory canals are clear. Oropharynx with no redness, swelling, or masses, exudates, or evidence of obstruction, uvula midline. Mucous membranes moist. Neck: Trachea midline, no thyromegaly or masses palpated, and no cervical lymphadenopathy. Supple, full range of motion without nuchal rigidity, or vertebral point tenderness. No Meningismus. Chest/axilla: Normal chest wall appearance and motion. Nontender with no deformity. No lesions are appreciated. Respiratory: Lungs have equal breath sounds bilaterally, clear to auscultation and percussion. No rales, rhonchi or wheezes noted. No increased work of breathing, no retractions or nasal flaring. Abdomen/GI: Soft, non-tender, with normal bowel sounds. No distension or tympany. No guarding or rebound. No evidence of tenderness throughout. Back: No spinal tenderness. No costovertebral tenderness. Full range of motion. Skin: Warm, dry with normal turgor. Normal color with no rashes, no lesions, and no evidence of cellulitis. MS/ Extremity: Pulses equal, no cyanosis. Neurovascular intact. Full, normal range of motion. Neuro: Awake and alert, GCS 15, oriented to person, place, time, and situation. Cranial nerves II-XII grossly intact. Motor strength 5/5 in all extremities. Sensory grossly intact. Cerebellar exam normal. Normal gait. 17:37 Cardiovascular: Cardiac exam demonstrates atrial fibrillation with RVR at 140s without any other abnormalities.. 17:37 ECG was reviewed by the Attending Physician. EKG demonstrates atrial fibrillation with RVR at 143 bpm with normal QRS, nonspecific ST/T changes without any evidence of ischemia mainly in lead V5. Vital Signs: 15:42 BP 134 / 75; Pulse 143; Resp 18 S; Pulse Ox 100% on R/A; Weight 73.48 kg; Height 5 ft. iw 7 in. (170.18 cm); 15:44 Temp 97.6; vg1 16:30 BP 101 / 56; Pulse 88; Resp 16; Pulse Ox 98% ; vg1 17:02 BP 110 / 57; Pulse 88; Resp 20; Pulse Ox 97% ; Pain 0/10; jh6 17:30 BP 107 / 53; Pulse 121; Resp 25; Pulse Ox 97% ; vg1 18:33 BP 98 / 68; Pulse 115; vg1 18:40 BP 114 / 90; Pulse 89; vg1 20:14 BP 108 / 97; Pulse 67; Resp 21 S; Pulse Ox 98% on R/A; as6 15:42 Body Mass Index 25.37 (73.48 kg, 170.18 cm) iw MDM: 16:19 Patient medically screened. sp3 17:39 Data reviewed: vital signs, nurses notes. ED course: 80-year-old with recurrent A. fib sp3 RVR without any somatic symptoms or other evidence of ACS/ischemia. Patient was rate controlled with Cardizem 10 mg IV which dropped her heart rate to the 90s to 120s depending on her activity level and blood pressure is in the 105/80 range. Patient is still in atrial fibrillation however and decision needs to be made on trying to cardiovert versus ibutilide versus admission for cardiology consultation. Page is been made to her tripoler to discuss options and best course of action at this time. Patient has not missed any doses of her Xarelto. Patient also has completely normal neurological exam at this time.. 18:08 ED course: Cardiology recommended digoxin 0.5 mg and sotalol 80 mg twice daily first sp3 dose to be given in the ED. These orders have been initiated and we will place patient in observation status with hospitalist medicine with cardiology consult. Explained all of this to the patient was okay with the plan.. 03/28 15:44 Order name: Basic Metabolic Panel; Complete Time: 17: 03/28 15:44 Order name: CBC with Diff; Complete Time: 17: 03/28 15:44 Order name: LFT's; Complete Time: : 03/28 15:44 Order name: Magnesium; Complete Time: : 03/28 15:44 Order name: NT PRO-BNP; Complete Time: 17: 03/28 15:44 Order name: PT-INR; Complete Time: 17: [facility] 03/28 15:44 Order name: Troponin HS; Complete Time: 17: 03/28 17:55 Order name: COVID-19 SARS RT PCR (Document "Date of Onset" if Symptomatic) 03/28 21:23 Order name: Glucose, Ancillary Testing [facility] 03/29 03:27 Order name: CBC with Automated Diff [facility] 03/29 05:14 Order name: Hemoglobin A1c [facility] 03/29 07:11 Order name: Comprehensive Metabolic Panel [facility] 03/29 07:11 Order name: Phosphorus [facility] 03/29 07:11 Order name: Magnesium [facility] 03/28 15:44 Order name: XRAY Chest (1 view); Complete Time: 17:24 [facility] 03/28 15:44 Order name: EKG; Complete Time: 15:45 03/28 15:44 Order name: Cardiac monitoring; Complete Time: 15:44 03/28 15:44 Order name: EKG - Nurse/Tech; Complete Time: 15:44 03/28 15:44 Order name: IV Saline Lock; Complete Time: 15:44 03/28 15:44 Order name: Labs collected and sent; Complete Time: 15:44 03/28 15:44 Order name: O2 Per Protocol; Complete Time: 15:44 [facility] 03/28 15:44 Order name: O2 Sat Monitoring; Complete Time: 15:44 [facility] 03/28 18:45 Order name: CONS Physician Consult [facility] 03/29 08:36 Order name: Glucose, Ancillary Testing [facility] 03/29 11:44 Order name: Glucose, Ancillary Testing [facility] 03/29 16:50 Order name: Glucose, Ancillary Testing [facility] 03/29 17:02 Order name: Troponin High Sensitivity [facility] Administered Medications: 16:26 Drug: Cardizem (diltiazem) 10 mg Route: IVP; Site: right antecubital; [facility] 03/29 02:12 Follow up: Response: No adverse reaction [facility] 03/28 18:37 Drug: Sotalol 80 mg Route: PO; [facility] 03/29 02:12 Follow up: Response: No adverse reaction [facility] 03/28 18:38 Drug: Digoxin 0.5 mg Route: IVP; Site: right antecubital; [facility] 03/29 02:12 Follow up: Response: No adverse reaction as6 Disposition Summary: 03/28/21 18:09 Hospitalization Ordered Hospitalization Status: Observation sp3 Provider: Dada Yeung sp3 Condition: Stable sp3 Problem: an acute exacerbation sp3 Symptoms: are unchanged sp3 Bed/Room Type: Standard sp3 Location: [facility] ER HOLD(03/28/21 19:59) Room Assignment: ERHOLD-(03/28/21 19:59) cg Diagnosis - Atrial fibrillation with RVR sp3 Forms: - Medication Reconciliation Form sp3 - SBAR form sp3 Signatures: Dispatcher [employer] [facility] Hope Barrett RN RN Anna Martins RN Danii Neri RN RN vg1 Alex Gregg MD MD sp3 Rae Downing RN RN jh6 Brent Pimentel RN as6 Corrections: (The following items were deleted from the chart) 03/28 17:41 17:39 ED course: 80-year-old with recurrent A. fib RVR without any somatic symptoms or sp3 other evidence of ACS/ischemia. Patient was rate controlled with Cardizem 10 mg IV which dropped her heart rate to the 90s to 120s depending on her activity level and blood pressure is in the 105/80 range. Patient is still in atrial fibrillation however and decision needs to be made on trying to cardiovert versus ibutilide versus admission for cardiology consultation. Page is been made to her tripoler to discuss options and best course of action at this time.. sp3 : 18:09 Telemetry/MedSurg (observation) sp3 cg 18:09 sp3
[2021-03-28] MEDS ORDERED: SOTALOL HCL 80 MG TAB ONE (18:30)
[2021-03-28] MEDS ORDERED: DIGOXIN 0.25 MG/ML AMP ONE (18:30)
--- NOTE | 2021-03-28 20:53 | P.HP ---
Certification for Inpatient Patient admitted to: Observation With expected LOS: <2 Midnights Patient will require the following post-hospital care: None Practitioner: I am a practitioner with admitting privileges, knowledge of patient current condition, hospital course, and medical plan of care. Services: Services provided to patient in accordance with Admission requirements found in Title 42 Section 412.3 of the Code of Federal Regulations Patient History Date of Service: 03/28/21 Reason for admission: afib with RVR History of Present Illness: Ms. Lockett is a 80 yo F with atrial fibrillation, HTN, DM, GERD who presents to the ED with palpitations and irregular heartbeat beginning today at 1pm. She also reported nausea and dizziness when standing. Initial heart rate found to be 140 bpm. She received cardizem, digoxin, and sotalol in the emergency department. Heart rate improved to the 90s. She was recently discharged yesterday for atrial fibrillation which improved with IV lopressor. She had an echo done, and was deemed stable for discharge and instructed to continue home carvedilol dose and start xarelto. Cardiology was contacted by ED physician and instructed to initiate sotalol BID and home dose xarelto. Na 134 BUN 20 Cr 1.47 GFR 34 Glu 210 BNP 1084 CXR FINDINGS: Portable technique limits examination quality. Interstitial markings are mildly prominent in the lung bases most compatible with a viral infection. The heart is upper limit of normal in size. No displaced fractures. Allergies Penicillins Allergy (Verified 03/26/21 21:31) Itching/Hives/Rash Home Medications: Amlodipine [Norvasc*] 10 mg PO DAILY 03/27/21 Aspirin [Aspirin EC] 1 tab PO DAILY 03/27/21 Empagliflozin [Jardiance] 1 tab PO DAILY 03/27/21 Glipizide [Glipizide Xl] 1 tab PO DAILY 03/27/21 Lisinopril/Hydrochlorothiazide [Lisinopril-Hctz 20-25 mg Tab] 1 tab PO DAILY Metformin ER [Glucophage ER*] 1,000 mg PO BID 03/27/21 Multivit-Min/FA/Lycopen/Lutein [Centrum Silver Tablet] 1 tab PO DAILY 03/27/21 Omeprazole 20 mg PO DAILY 03/27/21 Pravastatin Sodium 1 tab PO BEDTIME 03/27/21 Rivaroxaban [Xarelto] 20 mg PO DAILY AT SUPPER 30 Days #30 tablet 03/27/21 Sitagliptin Phosphate [Januvia*] 1 tab PO BEDTIME 03/27/21 Vit A,C & E/Lutein/Minerals [Ocuvite Tablet] 1 tab PO BEDTIME 03/27/21 Vitamin D [Drisdol*] 1 tab PO BEDTIME 03/27/21 carvediloL [Carvedilol] 1 tab PO BID 03/27/21 estradioL [Estradiol] 2 mg PO DAILY 03/27/21 - Past Medical/Surgical History Diabetic: Yes -: HTN -: NIDDM2 -: GERD -: Hiatal hernia -: cholecystectomy -: appendectomy -: hysterectomy -: rotator cuff - Social History Smoking Status: Never smoker Alcohol use: No CD- Drugs: No Caffeine use: Yes Place of Residence: Home Review of Systems 10-point ROS is otherwise unremarkable Cardiovascular: Palpitations, Light Headedness Gastrointestinal: Nausea Physical Examination - Physical Exam General: Alert, In no apparent distress HEENT: Atraumatic, PERRLA, Mucous membr. moist/pink, EOMI, Sclerae nonicteric Neck: Supple, 2+ carotid pulse no bruit, No LAD, Without JVD or thyroid abnormality Respiratory: Clear to auscultation bilaterally, Normal air movement Cardiovascular: Normal S1 S2, Irregular heart rate/rhythm Gastrointestinal: Normal bowel sounds, No tenderness Musculoskeletal: No tenderness Integumentary: No rashes Neurological: Normal speech, Normal strength at 5/5 x4 extr, Normal tone, Normal affect Lymphatics: No axilla or inguinal lymphadenopathy - Studies Laboratory Data (last 24 hrs) 03/28/21 15:35: PT 9.1 L, INR 0.79 03/28/21 15:35: WBC 9.40, Hgb 13.6, Hct 40.1, Plt Count 305 03/28/21 15:35: Sodium 134 L, Potassium 3.9, BUN 20 H, Creatinine 1.47 H, Glucose 210 H, Magnesium 1.9, Total Bilirubin 0.3, AST 13 L, ALT 16, Alkaline Phosphatase 69 Assessment and Plan - Problems (Diagnosis) (1) HTN (hypertension) Current Visit: Yes Status: Chronic Qualifiers: Hypertension type: primary hypertension Qualified Code(s): I10 - Essential (primary) hypertension (2) T2DM (type 2 diabetes mellitus) Current Visit: Yes Status: Chronic Qualifiers: Diabetes mellitus custodial insulin use: unspecified terminal clerk insulin use status Diabetes mellitus complication status: without complication Qualified Code(s): E11.9 - Type 2 diabetes mellitus without complications (3) GERD (gastroesophageal reflux disease) Current Visit: Yes Status: Chronic Qualifiers: Esophagitis presence: without esophagitis Qualified Code(s): K21.9 - Gastro-esophageal reflux disease without esophagitis (4) Atrial fibrillation with RVR Current Visit: Yes Status: Acute (5) ANTIONETTE (acute kidney injury) Current Visit: Yes Status: Acute - Plan cardiology consulted on telemetry continue sotalol 80mg PO BID, continue xarelto reconcile and continue home medications gentle IVF hydration, monitor BMP sliding scale insulin and accuchecks, A1c pending Discharge Plan: Home Plan to discharge in: 24 Hours - Advance Directives Does patient have a Living Will: No Does patient have a Durable POA for Healthcare: No - Code Status/Comfort Care Code Status Assessed: Yes (dnr ) Critical Care: No Time Spent Managing Pts Care (In Minutes): 70
[2021-03-28] MEDS ORDERED: RIVAROXABAN 20 MG TABLET PO SCH (21:02)
[2021-03-28] MEDS ORDERED: ONDANSETRON 4 MG/2 ML VIAL IV PRN (21:02)
[2021-03-28] MEDS: INSULIN -REGULAR HUMAN 50 UNIT/0.5 ML ML SQ SCH (21:02)
[2021-03-28] MEDS ORDERED: NA CHLORIDE 0.9% 1,000 ML IV SCH (21:02)
[2021-03-28] MEDS ORDERED: ATORVASTATIN 10 MG TAB PO SCH (21:02)
[2021-03-28] MEDS ORDERED: ACETAMINOPHEN 500 MG TAB PO PRN (21:02)
[2021-03-28] MEDS ORDERED: NA CHLORIDE 0.9% 1,000 ML ONE (21:20)
[2021-03-28] MEDS ORDERED: RIVAROXABAN 20 MG TABLET PO ONE (21:20)
[2021-03-28 21:57] VITALS: BMI 25.3
[2021-03-28] MEDS ORDERED: ATORVASTATIN 20 MG TAB ONE (22:14)
[2021-03-29 03:23] LABS: Absolute Lymphocytes (CBC) 2.8 K/uL (0.7-4.9); Lymphocytes % 36.9 % (15.3-44.8); MPV 7.7 fL (7.6-11.3); RBC Red Blood Cell Count 4.05 M/uL (3.86-4.86)
[2021-03-29] MEDS ORDERED: SOTALOL HCL 80 MG TAB PO SCH (06:00)
[2021-03-29 06:06] LABS: Albumin 2.4 g/dL (3.4-5.0); Bilirubin Total 0.2 mg/dL (0.2-1.0); Magnesium 1.8 mg/dL (1.8-2.4); Phosphorus 3.5 mg/dL (2.5-4.9); Protein, Total 5.6 g/dL (6.4-8.2)
[2021-03-29] MEDS: INSULIN -REGULAR HUMAN 50 UNIT/0.5 ML ML SQ SCH ×2 (07:30→11:30)
[2021-03-29] MEDS ORDERED: SOTALOL HCL 80 MG TAB PO ONE ×2 (08:07→14:00)
[2021-03-29] MEDS ORDERED: PANTOPRAZOLE 40MG TABLET PO ONE (08:13)
[2021-03-29] MEDS ORDERED: AMLODIPINE 10 MG TAB ONE (08:13)
[2021-03-29] MEDS ORDERED: ASPIRIN EC 81 MG TAB PO ONE (08:13)
[2021-03-29] MEDS ORDERED: lisinopriL 20 MG TAB PO SCH (09:00)
[2021-03-29] MEDS ORDERED: PANTOPRAZOLE 40MG TABLET PO SCH (09:00)
[2021-03-29] MEDS ORDERED: AMLODIPINE 10 MG TAB PO SCH (09:00)
[2021-03-29] MEDS ORDERED: ASPIRIN EC 81 MG TAB PO SCH (09:00)
[2021-03-29] MEDS ORDERED: HOME MED 1 EA UNK (Lisinopril/Hydrochlorothiazide [Lisinopril-Hctz 20-25 Mg Tab] Tablet) PO SCH (09:00)
[2021-03-29] MEDS ORDERED: hydroCHLOROthiazide 25 MG TAB PO SCH (09:00)
[2021-03-29] MEDS ORDERED: hydroCHLOROthiazide 25 MG TAB ONE (09:26)
[2021-03-29] MEDS ORDERED: lisinopriL 20 MG TAB ONE (09:26)
[2021-03-29 10:05] VITALS: TEMP 98.4
--- NOTE | 2021-03-29 13:04 | EKG ---
Test Date: 2021-03-28 Test Time: 15:33:03 Machine Grainer: INGRID MEASUREMENT RESULTS: Intervals: Rate: 143 MD: QRSD: 76 QT: 304 QTc: 469 [place]: P: MD: QRS: 68 T: 131 INTERPRETIVE STATEMENTS: Atrial fibrillation with rapid ventricular response Nonspecific ST abnormality Abnormal QRS-T angle, consider primary T wave abnormality Abnormal ECG Compared to ECG 03/26/2021 13:06:29 ST (T wave) deviation now present T-wave abnormality now present Sinus rhythm no longer present Electronically Signed On 03-29-21 13:02:53 PERIOPERATIVE NURSE by Hakan Lehman
[2021-03-29] MEDS ORDERED: SOTALOL HCL 80 MG TAB ONE (13:58)
[2021-03-29 16:44] VITALS: BP 132/56
[2021-03-29 18:29] VITALS: O2SAT 98
== END 2021-03-29 18:01 | disposition home or self-care (01) ==
LOC: ER 15:20 → ERHOLD 20:00
PROVIDERS: ADMIT Hospitalist; ATTEND Hospitalist
DX: I48.91 Unspecified atrial fibrillation (principal); N17.9 Acute kidney failure, unspecified; I10 Essential (primary) hypertension; E11.9 Type 2 diabetes mellitus without complications; K21.9 Gastro-esophageal reflux disease without esophagitis; K44.9 Diaphragmatic hernia without obstruction or gangrene; Z20.822 Contact with and (suspected) exposure to COVID-19; Z88.0 Allergy status to penicillin; Z90.49 Acquired absence of other specified parts of digestive tract; Z90.710 Acquired absence of both cervix and uterus
CPT/HCPCS: 93005; 85025 ×2; 80048; 36415; 83735 ×2; 84100; 85610; 82947 ×4; 80076; 83036; 84484 ×2; 80053; 83880; 71045; U0003; J1160; J7030; 96374; 96375; 99285; G0378

== ENCOUNTER 2024-05-09 06:58 | Emergency (ER) | payer OTHER, MEDICARE ==
--- OUTSIDE RECORDS SUMMARY | 2024-05-09 07:02 | XMS REPORT | Continuity of Care Document ---
Author Name Unknown Address [address] [facility] [address] [place] [address] [facility] Address [address] [address] [address] [place] [address] Care Team Providers Care Head Baker Name Role Phone Alex Gregg Attending Clinician Unavailable Pauly Michelle Attending Clinician Unavailkanchan e Pauly Michelle Admitting Clinician Unavailkanchan e Payers Payer Name Policy Type Policy Number Effective Date Expirati on Date Source [facility] [id number] 2006 00:00:00 [facility] Problems Condition Name Condition Details Condition Category Status Onset Date Resolution Date Last Treatment Date Treating Clinician Comments Source [id number] Mixed hyperlipid emia Problem [facility] [id number] Gastro-eso phageal reflux disease without esophagiti s Problem [facility] [id number] Essential (primary) hypertensi on Problem [facility] [id number] Atrial fibrillati on with RVR Problem [facility] [id number] Postmenopa usal disorder Problem [facility] [id number] Bilateral carotid artery disease, unspecifie d type Problem [facility] [id number] Type 2 diabetes mellitus with hyperglyce elias, without long-term current use of insulin Problem [facility] [id number] Type 2 diabetes mellitus with diabetic chronic kidney disease Problem [facility] [id number] Chronic kidney disease, stage 3 unspecifie d Problem [facility] Allergies, Adverse Reactions, Alerts Allergy Name Allergy Type Status Severity Reaction(s) Onset Date Inactive Date Treating Clinician Comments Source Penicill ins DA Active U RASH 2022-03 0 00:00: 00 [facility] penicill in G penicill in G Active Unknown [facility] Social History Social Habit Start Date Stop Date Quantity Comments Source Sex Assigned At [facility] History of Tobacco Use [facility] Smoking Status Start Date Stop Date Source Never Smoker [facility] Medications Ordered Medication Name Filled Medication Name Start Date Stop Date Current Medication? Ordering Clinician Indication Dosage Frequency Signature (SIG) Comments Components Source BUPivacaine HCl BUPivacaine HCl 10-20 00:00: 00 No 5mL [facility] Kenalog (Triamcinol one) Kenalog (Triamcinol one) 10-20 00:00: 00 No 1mL [facility] Lisinopril 20 MG Lisinopril 20 MG 6- 00:00: 00 No 1{table t} QD Lisinopril 20 MG hydroCHLORO thiazide 25 MG hydroCHLORO thiazide 25 MG 612 00:00: 00 No 1{table t_in_ e_morni ng} QD hydroCHLOR Othiazide 25 MG Estradiol 2 MG Estradiol 2 MG No 1{table t} QD Estradiol 2 MG amLODIPine Besylate 10 MG amLODIPine Besylate 10 MG No 1{table t} QD amLODIPine Besylate 10 MG Sotalol HCl 160 MG Sotalol HCl 160 MG No 1{table t} BID Sotalol HCl 160 MG Pravastatin Sodium 80 MG Pravastatin Sodium 80 MG No 1{table t} QD Pravastati n Sodium 80 MG Jardiance 25 MG Jardiance 25 MG No 1{table t} QD Jardiance 25 MG Omeprazole 20 MG Omeprazole 20 MG No QD Omeprazole 20 MG Centrum Silver Centrum Silver No BID [facility]rum Silver metFORMIN HCl ER 500 MG metFORMIN HCl ER 500 MG No BID metFORMIN HCl ER 500 MG Xarelto 20 MG Xarelto 20 MG No 1{table t_with_ food} QD Xarelto 20 MG Immunizations Ordered Immunization Name Filled Immunization Name Date Status Comments Source Flu Flu 2020-12-01 08:07:00 Completed [facility] 2020-12-01 08:07:00 Completed [facility] Flu 2020-12-01 08:07:00 Completed [facility] 2020-12-01 08:07:00 Completed [facility] 2020-12-01 08:07:00 Completed [facility] 2020-12-01 08:07:00 Completed [facility] 2020-12-01 08:07:00 Completed [facility] Prevnar 13 (PCV13) Prevnar 13 (PCV13) 2020-03-03 08:25:00 Completed [facility] Prevnar 13 (PCV13) Prevnar 13 (PCV13) 2020-03-03 08:25:00 Completed [facility] Prevnar 13 (PCV13) Prevnar 13 (PCV13) 2020-03-03 08:25:00 Completed [facility] Prevnar 13 (PCV13) Prevnar 13 (PCV13) 2020-03-03 08:25:00 Completed [facility] Prevnar 13 (PCV13) Prevnar 13 (PCV13) 2020-03-03 08:25:00 Completed [facility] Prevnar 13 (PCV13) Prevnar 13 (PCV13) 2020-03-03 08:25:00 Completed [facility] Prevnar 13 (PCV13) Prevnar 13 (PCV13) 2020-03-03 08:25:00 Completed [facility] Shingrix Shingrix 2015-03-03 08:25:00 [facility]pleted [facility] Shingrix Shingrix 2015-03-03 08:25:00 Completed [facility] Shingrix Shingrix 2015-03-03 08:25:00 Completed [facility] Shingrix Shingrix 2015-03-03 08:25:00 Completed [facility] Shingrix Shingrix 2015-03-03 08:25:00 Completed [facility] Shingrix Shingrix 2015-03-03 08:25:00 Completed [facility] Shingrix Shingrix 2015-03-03 08:25:00 Completed [facility] FluAD FluAD Unknown Completed [facility] Shingrix Shingrix Unknown Completed [facility] Prevnar 13 (PCV13) Prevnar 13 (PCV13) Unknown Completed [facility] FluAD FluAD Unknown Completed [facility] Shingrix Shingrix Unknown Completed [facility] Prevnar 13 (PCV13) Prevnar 13 (PCV13) Unknown Completed [facility] FluAD FluAD Unknown Completed [facility] Shingrix Shingrix Unknown Completed [facility] Prevnar 13 (PCV13) Prevnar 13 (PCV13) Unknown Completed [facility] FluAD FluAD Unknown Completed [facility] Shingrix Shingrix Unknown Completed [facility] Prevnar 13 (PCV13) Prevnar 13 (PCV13) Unknown Completed [facility] FluAD FluAD Unknown Completed [facility] Shingrix Shingrix Unknown Completed [facility] Prevnar 13 (PCV13) Prevnar 13 (PCV13) Unknown Completed [facility] FluAD FluAD Unknown Completed [facility] Shingrix Shingrix Unknown Completed [facility] Prevnar 13 (PCV13) Prevnar 13 (PCV13) Unknown Completed [facility] FluAD FluAD Unknown Completed [facility] Shingrix Shingrix Unknown Completed [facility] Prevnar 13 (PCV13) Prevnar 13 (PCV13) Unknown Completed [facility] FluAD FluAD Unknown Completed [facility] Shingrix Shingrix Unknown Completed [facility] Prevnar 13 (PCV13) Prevnar 13 (PCV13) Unknown Completed [facility] FluAD FluAD Unknown Completed [facility] Shingrix Shingrix Unknown Completed [facility] Prevnar 13 (PCV13) Prevnar 13 (PCV13) Unknown Completed [facility] FluAD FluAD Unknown Completed [facility] Shingrix Shingrix Unknown Completed [facility] Prevnar 13 (PCV13) Prevnar 13 (PCV13) Unknown Completed [facility] Vital Signs Vital Name Observation Time Observation Value Comments S ource height 2024-04-21 08:30:00 67.5 [in_i] Comm on [facility] weight 2024-04-21 08:30:00 131.8 [lb_av] Co mmon [facility] temperature 2024-04-21 08:30:00 97.3 [degF] Com mon [facility] bmi 2024-04-21 08:30:00 20.34 kg/m2 Comm on [facility] oximetry 2024-04-21 08:30:00 97 % Commo n [facility] respiratory rate 2024-04-21 08:30:00 17 /min [facility] blood pressure systolic 2024-04-21 08:30:00 130 mm[Hg] [facility] blood pressure diastolic 2024-04-21 08:30:00 78 mm[Hg] [facility] height 2024-04-21 08:45:00 67.5 [in_i] Comm on [facility] weight 2024-04-21 08:45:00 131.8 [lb_av] Co mmon [facility] temperature 2024-04-21 08:45:00 97.3 [degF] Com mon [facility] bmi 2024-04-21 08:45:00 20.34 kg/m2 Comm on [facility] oximetry 2024-04-21 08:45:00 97 % Commo n [facility] blood pressure systolic 2024-04-21 08:45:00 130 mm[Hg] [facility] blood pressure diastolic 2024-04-21 08:45:00 78 mm[Hg] Common [facility] height 2023-12-17 08:15:00 67.5 [in_i] Comm on [facility] weight 2023-12-17 08:15:00 135 [lb_av] Comm on [facility] temperature 2023-12-17 08:15:00 97.3 [degF] Com [facility] bmi 2023-12-17 08:15:00 20.83 kg/m2 Comm on [facility] oximetry 2023-12-17 08:15:00 98 % Commo n [facility] blood pressure systolic 2023-12-17 08:15:00 122 mm[Hg] [facility] blood pressure diastolic 2023-12-17 08:15:00 68 mm[Hg] [facility] height 2023-12-17 08:15:00 67.5 [in_i] Comm on [facility] weight 2023-12-17 08:15:00 135 [lb_av] Comm on [facility] temperature 2023-12-17 08:15:00 97.3 [degF] Com [facility] bmi 2023-12-17 08:15:00 20.83 kg/m2 Comm on [facility] oximetry 2023-12-17 08:15:00 98 % Commo n [facility] blood pressure systolic 2023-12-17 08:15:00 122 mm[Hg] [facility] blood pressure diastolic 2023-12-17 08:15:00 68 mm[Hg] [facility] height 2023-12-02 08:30:00 67.5 [in_i] Comm on [facility] weight 2023-12-02 08:30:00 135.8 [lb_av] Co mmon [facility] bmi 2023-12-02 08:30:00 20.95 kg/m2 Comm on [facility] blood pressure systolic 2023-12-02 08:30:00 124 mm[Hg] [facility] blood pressure diastolic 2023-12-02 08:30:00 68 mm[Hg] [facility] height 2023-10-21 13:30:00 67.5 [in_i] Comm on [facility] weight 2023-10-21 13:30:00 132 [lb_av] Comm on [facility] temperature 2023-10-21 13:30:00 98.2 [degF] Com mon [facility] bmi 2023-10-21 13:30:00 20.37 kg/m2 Comm on [facility] blood pressure systolic 2023-10-21 13:30:00 120 mm[Hg] [facility] blood pressure diastolic 2023-10-21 13:30:00 72 mm[Hg] [facility] height 2023-08-14 08:20:00 67.5 [in_i] Comm on [facility] weight 2023-08-14 08:20:00 133.6 [lb_av] Co mmon [facility] temperature 2023-08-14 08:20:00 98.7 [degF] Com mon [facility] bmi 2023-08-14 08:20:00 20.61 kg/m2 Comm on [facility] oximetry 2023-08-14 08:20:00 99 % Commo n [facility] respiratory rate 2023-08-14 08:20:00 18 /min Common [facility] blood pressure systolic 2023-08-14 08:20:00 117 mm[Hg] [facility] blood pressure diastolic 2023-08-14 08:20:00 65 mm[Hg] [facility] height 2023-04-16 08:10:00 67.5 [in_i] Comm on [facility] weight 2023-04-16 08:10:00 134.0 [lb_av] Co mmon [facility] temperature 2023-04-16 08:10:00 97.8 [degF] Com [facility] bmi 2023-04-16 08:10:00 20.68 kg/m2 Comm on [facility] oximetry 2023-04-16 08:10:00 99 % Commo n [facility] respiratory rate 2023-04-16 08:10:00 18 /min Common [facility] blood pressure systolic 2023-04-16 08:10:00 123 mm[Hg] [facility] blood pressure diastolic 2023-04-16 08:10:00 64 mm[Hg] [facility] height 2023-04-16 08:00:00 67.5 [in_i] Comm on [facility] weight 2023-04-16 08:00:00 134.0 [lb_av] Co mmon [facility] temperature 2023-04-16 08:00:00 97.8 [degF] Com [facility] bmi 2023-04-16 08:00:00 20.68 kg/m2 Comm on [facility] oximetry 2023-04-16 08:00:00 99 % Commo n [facility] respiratory rate 2023-04-16 08:00:00 18 /min [facility] blood pressure systolic 2023-04-16 08:00:00 123 mm[Hg] [facility] blood pressure diastolic 2023-04-16 08:00:00 64 mm[Hg] [facility] height 2023-02-11 08:50:00 67.5 [in_i] Comm on [facility] weight 2023-02-11 08:50:00 136.0 [lb_av] Co [facility] temperature 2023-02-11 08:50:00 97.8 [degF] Com [facility] bmi 2023-02-11 08:50:00 20.98 kg/m2 Comm on [facility] oximetry 2023-02-11 08:50:00 99 % Commo n [facility] respiratory rate 2023-02-11 08:50:00 18 /min Common [facility] blood pressure systolic 2023-02-11 08:50:00 120 mm[Hg] Common [facility] blood pressure diastolic 2023-02-11 08:50:00 69 mm[Hg] Common [facility] height 2022-12-25 10:40:00 67.5 [in_i] Comm on [facility] weight 2022-12-25 10:40:00 140.4 [lb_av] Co mmon [facility] temperature 2022-12-25 10:40:00 97.4 [degF] Com [facility] bmi 2022-12-25 10:40:00 21.66 kg/m2 Comm on [facility] oximetry 2022-12-25 10:40:00 99 % Commo n [facility] respiratory rate 2022-12-25 10:40:00 16 /min Common [facility] blood pressure systolic 2022-12-25 10:40:00 118 mm[Hg] [facility] blood pressure diastolic 2022-12-25 10:40:00 76 mm[Hg] [facility] height 2022-10-05 09:40:00 67.5 [in_i] Comm on [facility] weight 2022-10-05 09:40:00 139.8 [lb_av] Co mmon [facility] temperature 2022-10-05 09:40:00 98.5 [degF] Com [facility] bmi 2022-10-05 09:40:00 21.57 kg/m2 Comm on [facility] oximetry 2022-10-05 09:40:00 97 % Commo n [facility] respiratory rate 2022-10-05 09:40:00 17 /min [facility] blood pressure systolic 2022-10-05 09:40:00 121 mm[Hg] [facility] blood pressure diastolic 2022-10-05 09:40:00 70 mm[Hg] [facility] height 2022-07-02 08:40:00 67.5 [in_i] Comm on [facility] weight 2022-07-02 08:40:00 145 [lb_av] Comm on [facility] temperature 2022-07-02 08:40:00 97.3 [degF] Com mon [facility] bmi 2022-07-02 08:40:00 22.37 kg/m2 Comm on [facility] oximetry 2022-07-02 08:40:00 97 % Commo n [facility] respiratory rate 2022-07-02 08:40:00 16 /min Common [facility] blood pressure systolic 2022-07-02 08:40:00 123 mm[Hg] Common [facility] blood pressure diastolic 2022-07-02 08:40:00 76 mm[Hg] [facility] height 2022-04-04 08:30:00 67.5 [in_i] Comm on [facility] weight 2022-04-04 08:30:00 148.7 [lb_av] Co mmon [facility] temperature 2022-04-04 08:30:00 96.1 [degF] Com mon [facility] bmi 2022-04-04 08:30:00 22.94 kg/m2 Comm on [facility] oximetry 2022-04-04 08:30:00 98 % Commo n [facility] respiratory rate 2022-04-04 08:30:00 18 /min [facility] blood pressure systolic 2022-04-04 08:30:00 118 mm[Hg] [facility] blood pressure diastolic 2022-04-04 08:30:00 67 mm[Hg] Common [facility] height 2022-04-04 09:00:00 67.5 [in_i] Comm on [facility] weight 2022-04-04 09:00:00 148.7 [lb_av] Co mmon [facility] temperature 2022-04-04 09:00:00 96.1 [degF] Com mon [facility] bmi 2022-04-04 09:00:00 22.94 kg/m2 Comm on [facility] oximetry 2022-04-04 09:00:00 98 % Commo n [facility] respiratory rate 2022-04-04 09:00:00 18 /min Common [facility] blood pressure systolic 2022-04-04 09:00:00 118 mm[Hg] [facility] blood pressure diastolic 2022-04-04 09:00:00 67 mm[Hg] Common [facility] height 2021-11-02 08:20:00 67.5 [in_i] Comm on [facility] weight 2021-11-02 08:20:00 153 [lb_av] Comm on [facility] temperature 2021-11-02 08:20:00 97.6 [degF] Com mon [facility] bmi 2021-11-02 08:20:00 23.61 kg/m2 Comm on [facility] oximetry 2021-11-02 08:20:00 95 % Commo n [facility] respiratory rate 2021-11-02 08:20:00 16 /min Common [facility] blood pressure systolic 2021-11-02 08:20:00 136 mm[Hg] Common [facility] blood pressure diastolic 2021-11-02 08:20:00 78 mm[Hg] Common [facility] height 2021-08-02 08:30:00 67 [in_i] Commo n [facility] weight 2021-08-02 08:30:00 160.0 [lb_av] Co mmon [facility] temperature 2021-08-02 08:30:00 97.2 [degF] Com mon [facility] bmi 2021-08-02 08:30:00 25.06 kg/m2 Comm on [facility] oximetry 2021-08-02 08:30:00 97 % Commo n [facility] respiratory rate 2021-08-02 08:30:00 16 /min Common [facility] blood pressure systolic 2021-08-02 08:30:00 125 mm[Hg] [facility] blood pressure diastolic 2021-08-02 08:30:00 66 mm[Hg] [facility] Procedures Procedure Date / Time Performed Performing Clinicia n Source [id number] 2022-12-21 00:00:00 [facility]01 [facility] [id number] 2022-12-21 00:00:00 [facility]01 [facility] [id number] 2022-12-21 00:00:00 [facility]01 [facility] [id number] 2022-12-21 00:00:00 [facility]01 [facility] [id number] 2022-12-21 00:00:00 [facility]01 [facility] [id number] 2022-12-21 00:00:00 [facility]01 [facility] [id number] 2022-12-21 00:00:00 [facility]01 [facility] [id number] 2022-12-21 00:00:00 [facility]01 [facility] Encounters Start Date/Time End Date/Time Encounter Type Admission Type Attending [facility] Care Department Encounter ID Source 2024-04-20 08:24:00 Outpatient Gregg, Alex STLC STLC [id number] [facility] 2023-11-25 14:33:00 Outpatient Gregg, Alex STLC STLC [id number] [facility] 2023-10-22 07:42:00 Outpatient Gregg, Alex STLC STLMLC [id number] [facility] 2023-10-16 09:49:00 Outpatient Gregg, Alex STLC STLMLC [id number] [facility] 2022-04-04 07:34:01 Outpatient Gregg, Alex STLC STLMLC [id number] [facility] 2022-04-03 15:48:01 Outpatient Gregg, Alex STLC STLMLC [id number] [facility] 2022-04-02 07:14:01 Outpatient Gregg, Alex STLC STLMLC [id number] [facility] 2021-08-02 08:13:02 Outpatient Gregg, Alex STLC STLMLC [id number] [facility] 2021-03-29 14:02:39 Outpatient Gregg, Alex STLMLC STLMLC [id number] [facility] 2024-04-21 00:00:00 2024-04-21 00:00:00 OFFICE VISIT ESTAB PT LEVEL 4 STLMLC STLMLC [id number] [facility] 2024-04-21 00:00:00 2024-04-21 00:00:00 SUB ANNUAL [facility] VISIT STLMLC STLMLC [id number] [facility] 2024-04-15 00:00:00 2024-04-15 00:00:00 (TEL) STLMLC STLMLC [id number] [facility] 2024-03-10 00:00:00 2024-03-10 00:00:00 (TEL) STLMLC STLMLC [id number] [facility] 2024-01-21 00:00:00 2024-01-21 00:00:00 (TEL) STLMLC STLMLC [id number] [facility] 2024-01-21 00:00:00 2024-01-21 00:00:00 (TEL) STLMLC STLMLC [id number] [facility] 2023-12-24 00:00:00 2023-12-24 00:00:00 (TEL) STLMLC STLMLC [id number] [facility] 2023-12-17 00:00:00 2023-12-17 00:00:00 OFFICE VISIT ESTAB PT LEVEL 4 STLMLC STLMLC [id number] [facility] 2023-12-02 00:00:00 2023-12-02 00:00:00 OFFICE VISIT ESTAB PT LEVEL 4 STLMLC STLMLC [id number] [facility] 2023-10-30 00:00:00 2023-10-30 00:00:00 (TEL) STLMLC STLMLC [id number] [facility] 2023-10-21 00:00:00 2023-10-21 00:00:00 OFFICE VISIT ESTAB PT LEVEL 4 STLMLC STLMLC [id number] [facility] 2023-08-14 00:00:00 2023-08-14 00:00:00 OFFICE VISIT ESTAB PT LEVEL 4 STLMLC STLMLC [id number] [facility] 2023-04-16 00:00:00 2023-04-16 00:00:00 OFFICE VISIT ESTAB PT LEVEL 4 STLMLC STLMLC [id number] [facility] 2023-04-16 00:00:00 2023-04-16 00:00:00 SUB ANNUAL [facility] VISIT STLMLC STLMLC [id number] [facility] 2023-04-05 00:00:00 2023-04-05 00:00:00 (TEL) STLMLC STLMLC [id number] [facility] 2023-02-11 00:00:00 2023-02-11 00:00:00 OFFICE VISIT ESTAB PT LEVEL 4 STLMLC STLMLC [id number] [facility] 2022-12-25 00:00:00 2022-12-25 00:00:00 (HOSP F/U) Hospital Follow Up STLMLC STLMLC [id number] [facility] 2022-12-24 00:00:00 2022-12-24 00:00:00 (TEL) STLMLC STLMLC [id number] [facility] 2022-12-21 11:30:00 2022-12-22 14:33:00 Inpatient Pauly Valenzuela HCACL INTE [id number] [facility] 2022-12-10 00:00:00 2022-12-10 00:00:00 (TEL) STLMLC STLMLC [id number] [facility] 2022-10-05 00:00:00 2022-10-05 00:00:00 OFFICE VISIT ESTAB PT LEVEL 4 STLMLC STLMLC [id number] [facility] 2022-07-02 00:00:00 2022-07-02 00:00:00 OFFICE VISIT ESTAB PT LEVEL 4 STLMLC STLMLC [id number] [facility] 2022-04-04 00:00:00 2022-04-04 00:00:00 OFFICE VISIT ESTAB PT LEVEL 4 STLMLC STLMLC [id number] [facility] 2022-04-04 00:00:00 2022-04-04 00:00:00 (TEL) STLMLC STLMLC [id number] [facility] 2022-04-04 00:00:00 2022-04-04 00:00:00 SUB ANNUAL [facility] VISIT STLMLC STLMLC [id number] [facility] 2021-12-14 00:00:00 2021-12-14 00:00:00 (TEL) STLMLC STLMLC [id number] [facility] 2021-11-22 00:00:00 2021-11-22 00:00:00 (TEL) STLMLC STLMLC [id number] [facility] 2021-11-02 00:00:00 2021-11-02 00:00:00 OFFICE VISIT ESTAB PT LEVEL 4 STLMLC STLMLC [id number] [facility] 2021-08-02 00:00:00 2021-08-02 00:00:00 OFFICE VISIT ESTAB PT LEVEL 4 STLMLC STLMLC [id number] [facility] Results Test Description Test Time Test Comments Results Result Co mments Source COMPREHENSIVE METABOLIC [id number] 00:00:00* Test Item Value Reference Range Interpretation Comme nts NUCLEATED RBCS (test code = 82107-5) 0.0 /100 WBC'S See_Comment [Automated message] The system which generated this result transmitted reference range: 0.0 /100 WBC'S. The reference range was not used to interpret this result as normal/abnormal. ABSOLUTE EOSINOPHILS (test code = 50006-6) 0.10 K/UL See_Comment [Automated message] The system which generated this result transmitted reference range: 0.00-0.50 K/UL. The reference range was not used to interpret this result as normal/abnormal. ABSOLUTE LYMPHOCYTES (test code = 47648-5) 2.72 K/UL See_Comment [Automated message] The system which generated this result transmitted reference range: 1.00-4.00 K/UL. The reference range was not used to interpret this result as normal/abnormal. ABSOLUTE MONOCYTES (test code = 22943-5) 0.42 K/UL See_Comment [Automated message] The system which generated this result transmitted reference range: 0.20-1.00 K/UL. The reference range was not used to interpret this result as normal/abnormal. ABSOLUTE NEUTROPHILS (test code = 67506-0) 3.59 K/UL See_Comment [Automated message] The system which generated this result transmitted reference range: 1.50-7.50 K/UL. The reference range was not used to interpret this result as normal/abnormal. BASOPHILS (test code = 01214-2) 1.0 % EOSINOPHILS (test code = 42610-6) 1.4 % HEMATOCRIT (test code = 24107-5) 39.1 % See_Comment [Automated messa ge] The system which generated this result transmitted reference range: 34.0-45.0 %. The reference range was not used to interpret this result as normal/abnormal. HEMOGLOBIN (test code = 718-7) 12.8 G/DL See_Comment [Automated messa ge] The system which generated this result transmitted reference range: 11.5-15.5 G/DL. The reference range was not used to interpret this result as normal/abnormal. LYMPHOCYTES (test code = 81865-2) 39.0 % MCH (test code = 69731-2) 30.3 PG See_Comment [Automated messa ge] The system which generated this result transmitted reference range: 25.0-33.0 PG. The reference range was not used to interpret this result as normal/abnormal. MCHC (test code = 22349-4) 32.7 G/DL See_Comment [Automated messa ge] The system which generated this result transmitted reference range: 31.0-36.0 G/DL. The reference range was not used to interpret this result as normal/abnormal. MCV (test code = 91100-1) 92.4 fL See_Comment [Automated messa ge] The system which generated this result transmitted reference range: 80.0-99.0 fL. The reference range was not used to interpret this result as normal/abnormal. MONOCYTES (test code = 59669-0) 6.0 % NEUTROPHILS (test code = 62592-1) 51.6 % PLATELET COUNT (test code = 29018-1) 321 K/UL See_Comment [Automated messa ge] The system which generated this result transmitted reference range: 130-400 K/UL. The reference range was not used to interpret this result as normal/abnormal. RBC (test code = 44763-4) 4.23 M/UL See_Comment [Automated messa ge] The system which generated this result transmitted reference range: 3.80-5.40 M/UL. The reference range was not used to interpret this result as normal/abnormal. RDW (test code = 57482-7) 12.5 % See_Comment [Automated messa ge] The system which generated this result transmitted reference range: 11.5-15.0 %. The reference range was not used to interpret this result as normal/abnormal. WBC (test code = 24396-7) 7.0 K/UL See_Comment [Automated messa ge] The system which generated this result transmitted reference range: 3.5-11.0 K/UL. The reference range was not used to interpret this result as normal/abnormal. HEMOGLOBIN A1c (test code = 4548-4) 6.9 % See_Comment H [Automated messa ge] The system which generated this result transmitted reference range: 4.2-5.6 %. The reference range was not used to interpret this result as normal/abnormal. CALC LDL CHOL (test code = 22394-8) 99 MG/DL See_Comment [Automated messa ge] The system which generated this result transmitted reference range: <100 MG/DL. The reference range was not used to interpret this result as normal/abnormal. CHOLESTEROL (test code = 2093-3) 193 MG/DL See_Comment [Automated messa ge] The system which generated this result transmitted reference range: <200 MG/DL. The reference range was not used to interpret this result as normal/abnormal. HDL CHOLESTEROL (test code = 2085-9) 65 MG/DL See_Comment [Automated messa ge] The system which generated this result transmitted reference range: >39 MG/DL. The reference range was not used to interpret this result as normal/abnormal. RISK RATIO LDL/HDL (test code = 43761-5) 1.52 RATIO See_Comment [Automated message] The system which generated this result transmitted reference range: <3.22 RATIO. The reference range was not used to interpret this result as normal/abnormal. TRIGLYCERIDES (test code = 2571-8) 193 MG/DL See_Comment H [Automated messa ge] The system which generated this result transmitted reference range: <150 MG/DL. The reference range was not used to interpret this result as normal/abnormal. ALBUMIN, URINE, RANDOM (test code = 32628-3) 1.9 MG/DL NOT ESTAB MG/DL CALC ALBUMIN/CREAT, RND (test code = 83527-7) 19 MG/G See_Comment [Automated [employer]] The system which generated this result transmitted reference range: <30 MG/G. The reference range was not used to interpret this result as normal/abnormal. CREATININE, URINE, CONC. (test code = 2161-8) 98.6 MG/DL NOT ESTAB MG/DL ALBUMIN (test code = 1751-7) 3.8 G/DL See_Comment [Automated [employer]] The system which generated this result transmitted reference range: 3.5-5.2 G/DL. The reference range was not used to interpret this result as normal/abnormal. ALKALINE PHOSPHATASE (test code = 6768-6) 63 U/L See_Comment [Automated message] The system which generated this result transmitted reference range: 40-142 U/L. The reference range was not used to interpret this result as normal/abnormal. BILIRUBIN, TOTAL (test code = 1975-2) 0.3 MG/DL See_Comment [Automated [employer]] The system which generated this result transmitted reference range: <=1.2 MG/DL. The reference range was not used to interpret this result as normal/abnormal. BUN (test code = 3094-0) 17 MG/DL See_Comment [Automated [employer]] The system which generated this result transmitted reference range: 8-23 MG/DL. The reference range was not used to interpret this result as normal/abnormal. CALCIUM (test code = 84927-3) 9.8 MG/DL See_Comment [Automated messa ge] The system which generated this result transmitted reference range: 8.5-10.5 MG/DL. The reference range was not used to interpret this result as normal/abnormal. CALC A/G RATIO (test code = 1759-0) 1.6 RATIO See_Comment [Automated messa ge] The system which generated this result transmitted reference range: 1.0-2.6 RATIO. The reference range was not used to interpret this result as normal/abnormal. CALC BUN/CREAT (test code = 3097-3) 20 RATIO See_Comment [Automated messa ge] The system which generated this result transmitted reference range: 6-28 RATIO. The reference range was not used to interpret this result as normal/abnormal. CALC GLOBULIN (test code = 96113-9) 2.4 G/DL See_Comment [Automated messa ge] The system which generated this result transmitted reference range: 1.9-3.7 G/DL. The reference range was not used to interpret this result as normal/abnormal. CARBON DIOXIDE (test code = 1963-8) 26 MEQ/L See_Comment [Automated messa ge] The system which generated this result transmitted reference range: 19-31 MEQ/L. The reference range was not used to interpret this result as normal/abnormal. CHLORIDE (test code = 2075-0) 100 MEQ/L See_Comment [Automated messa ge] The system which generated this result transmitted reference range: 95-107 MEQ/L. The reference range was not used to interpret this result as normal/abnormal. CREATININE (test code = 2160-0) 0.84 MG/DL See_Comment [Automated messa ge] The system which generated this result transmitted reference range: 0.60-1.30 MG/DL. The reference range was not used to interpret this result as normal/abnormal. eGFR (2020 CKD-EPI) (test code = 27624-0) 69 ML/MIN/1.73 See_Comment [Automated message] The system which generated this result transmitted reference range: >60 ML/MIN/1.73. The reference range was not used to interpret this result as normal/abnormal. GLUCOSE (test code = 1558-6) 85 MG/DL See_Comment [Automated messa ge] The system which generated this result transmitted reference range: 70-99 MG/DL. The reference range was not used to interpret this result as normal/abnormal. POTASSIUM (test code = 2823-3) 4.5 MEQ/L See_Comment [Automated messa ge] The system which generated this result transmitted reference range: 3.5-5.4 MEQ/L. The reference range was not used to interpret this result as normal/abnormal. PROTEIN, TOTAL (test code = 2885-2) 6.2 G/DL See_Comment [Automated messa ge] The system which generated this result transmitted reference range: 6.1-8.3 G/DL. The reference range was not used to interpret this result as normal/abnormal. AST (test code = 1920-8) 23 U/L See_Comment [Automated messa ge] The system which generated this result transmitted reference range: 9-40 U/L. The reference range was not used to interpret this result as normal/abnormal. ALT (test code = 1742-6) 12 U/L See_Comment [Automated messa ge] The system which generated this result transmitted reference range: 5-40 U/L. The reference range was not used to interpret this result as normal/abnormal. SODIUM (test code = 2951-2) 139 MEQ/L See_Comment [Automated messa ge] The system which generated this result transmitted reference range: 133-146 MEQ/L. The reference range was not used to interpret this result as normal/abnormal. CBC W/AUTO [id number] 00:00:00* Test Item Value Reference Range Interpretation Comme nts NUCLEATED RBCS (test code = 93690-9) 0.0 /100 WBC'S See_Comment [Automated messa ge] The system which generated this result transmitted reference range: 0.0 /100 WBC'S. The reference range was not used to interpret this result as normal/abnormal. ABSOLUTE EOSINOPHILS (test code = 15445-2) 0.55 K/UL See_Comment H [Automated messa ge] The system which generated this result transmitted reference range: 0.00-0.50 K/UL. The reference range was not used to interpret this result as normal/abnormal. ABSOLUTE LYMPHOCYTES (test code = 78258-5) 2.84 K/UL See_Comment [Automated messa ge] The system which generated this result transmitted reference range: 1.00-4.00 K/UL. The reference range was not used to interpret this result as normal/abnormal. ABSOLUTE MONOCYTES (test code = 35827-5) 0.39 K/UL See_Comment [Automated messa ge] The system which generated this result transmitted reference range: 0.20-1.00 K/UL. The reference range was not used to interpret this result as normal/abnormal. ABSOLUTE NEUTROPHILS (test code = 63484-3) 4.18 K/UL See_Comment [Automated messa ge] The system which generated this result transmitted reference range: 1.50-7.50 K/UL. The reference range was not used to interpret this result as normal/abnormal. BASOPHILS (test code = 25079-7) 1.0 % EOSINOPHILS (test code = 72485-5) 6.7 % HEMATOCRIT (test code = 43781-4) 41.6 % See_Comment [Automated messa ge] The system which generated this result transmitted reference range: 34.0-45.0 %. The reference range was not used to interpret this result as normal/abnormal. HEMOGLOBIN (test code = 718-7) 14.0 G/DL See_Comment [Automated messa ge] The system which generated this result transmitted reference range: 11.5-15.5 G/DL. The reference range was not used to interpret this result as normal/abnormal. LYMPHOCYTES (test code = 61982-6) 34.8 % MCH (test code = 87410-6) 30.8 PG See_Comment [Automated messa ge] The system which generated this result transmitted reference range: 25.0-33.0 PG. The reference range was not used to interpret this result as normal/abnormal. MCHC (test code = 96941-0) 33.7 G/DL See_Comment [Automated messa ge] The system which generated this result transmitted reference range: 31.0-36.0 G/DL. The reference range was not used to interpret this result as normal/abnormal. MCV (test code = 08420-2) 91.4 fL See_Comment [Automated messa ge] The system which generated this result transmitted reference range: 80.0-99.0 fL. The reference range was not used to interpret this result as normal/abnormal. MONOCYTES (test code = 34132-0) 4.8 % NEUTROPHILS (test code = 42400-0) 51.2 % PLATELET COUNT (test code = 04021-5) 306 K/UL See_Comment [Automated messa ge] The system which generated this result transmitted reference range: 130-400 K/UL. The reference range was not used to interpret this result as normal/abnormal. RBC (test code = 21925-6) 4.55 M/UL See_Comment [Automated messa ge] The system which generated this result transmitted reference range: 3.80-5.40 M/UL. The reference range was not used to interpret this result as normal/abnormal. RDW (test code = 29315-3) 11.8 % See_Comment [Automated messa ge] The system which generated this result transmitted reference range: 11.5-15.0 %. The reference range was not used to interpret this result as normal/abnormal. WBC (test code = 06876-4) 8.2 K/UL See_Comment [Automated messa ge] The system which generated this result transmitted reference range: 3.5-11.0 K/UL. The reference range was not used to interpret this result as normal/abnormal. [id number] 14:53:00* Test Item Value Reference Range Interpretation Comments SURGICAL (test code = SR) RUN DATE: 12/25/22 [facility] PAGE 1 RUN TIME: 1454 Specimen Inquiry RUN USER: INTERFACE PATIENT: YOHANNESMORENA LOC: SHAUN U #: [id number] AGE/SX: 82/F ROOM: [facility] RE12/21/22REG DR: Pauly Michelle MD : 41 BED: 1 DIS: 12/22/22 STATUS: DIS IN TLOC: SPEC #: [id number] RECD: 12/24/22 STATUS: AURELIA JACOBO #: [id number] KALEIGH: 12/21/22- SUBM DR: Pauly Michelle MD ENTERED: 12/24/22 SP TYPE: SURGICAL OTHR DR: Genie Newby MD, Robert A Jr MD Patel, Mukesh R MDORDERED: 61002, ANATOMIC SPEC COPIES TO: Genie Newby MD [address] [place] [address] Pauly Michelle MD [address] [place] [address] Sergio Pollock Jr, MD [address] [facility] [place] [address] [place] [address] [facility] [address] [place] [address] PROCEDURES: 40689 (12/25/22-1435) TISSUES: A. CAROTID PLAQUE WITH DECAL - RIGHT CLINICAL HISTORY SAME FINAL DIAGNOSIS Carotid plaque, right, endarterectomy: Atherosclerotic plaque with calcification. CONTINUED ON NEXT PAGE RUN DATE: 12/25/22 [place] - LAB PAGE 2 RUN TIME: 1454 Specimen Inquiry RUN USER: INTERFACE SPEC #: [id number] PATIENT: MORENA SHEFFIELD #[id number] (Continued) - GROSS DESCRIPTION Received in formalin labeled "right carotid plaque" include a segment of atheroscleroticplaque, 2.5 x 0.7 x 0.7 cm, entirely submitted (A). Technical component performed at [facility],[address] [place] [address], [place] [address] Unless gross only, the diagnosis is based upon microscopic examination.Immunohistochemistry: This test was developed and its performance characteristicsdetermined by this laboratory. It has not been approved nor does it need approvalby the [place] FDA. Appropriate positive and negative controls are reviewed and judgedto be acceptable for performedimmunohistochemistry and/or special stains. This laboratoryis certified under the Clinical Laboratory Improvement Amendments (CLIA-88) as qualified toperform high complexity clinical laboratory testing. CLINICAL INFORMATION CAROTID ARTERY STENOSIS Signed Rosalinda Bowles 12/25/22 1453 END OF REPORT GLUCOSE [id number] 11:38:00* Test Item Value Reference Range Interpretation Comme nts GLUCOSE BEDSIDE (test code = GLUBED) 127 MG/DL 70-110 H Performed by bautista stacy at [facility] - XR CHEST 1 [id number] 08:40:00 [facility] : 1940 Sex: F FAX: Pauly Bonilla MD [phone] [place]: St: [facility] FAX: Alexandria Sullivan CNP FAX: Jc Loyloa MD [phone] Name: MORENA SHEFFIELD [facility] : 1940 Age/S: 82/F [address] [place] [address] Unit #: [id number] Loc: G.6063 [place] [address] Phys: Alexandria Sullivan CNP Acct: [id number] Dis Date: Status: ADM IN PHONE #: [phone] Exam Date: 12/22/2022 0841 FAX #: [phone] Reason: S/P RIGHT CEA EXAMS: CPT CODE: [id number] XR CHEST 1 V 03075 EXAM: - XR CHEST 1 V HISTORY: S/P RIGHT CEA LOCATIONCODE:T18 TECHNIQUE: Frontal radiograph of the chest. COMPARISON: 12/18/2022. FINDINGS: Normal heartsize. No focal airspace consolidation. No pulmonary edema, pleural effusion or pneumothorax. IMPRESSION: No radiographic evidence of acute cardiopulmonary disease. at 0840 Reported and signed by: Ericka Mast M.D. CC: Pauly Michelle MD; Alexandria Sullivan; Jc Gregg MD Technologist: Maik Aceves, RT(R); Tonia Wu RT(R) Trnscrd Date/Time/By: 12/22/2022 (0840) : By: [email or web address] Orig Print D/T: S: 12/22/2022 (2343) PAGE 1 Signed ReportGLUCOSE [id number] 08:00:00* Test Item Value Reference Range Interpretation Comme nts GLUCOSE BEDSIDE (test code = GLUBED) 81 MG/DL 70-110 N Performed by cer [place] continuous wave operator at [facility] BASIC METABOLIC [id number] 06:23:00* Test Item Value Reference Range Interpretation Comme nts SODIUM (test code = NA) 135 mEq/L 134-147 N POTASSIUM (test code = K) 3.9 mEq/L 3.4-5.0 N CHLORIDE (test code = CL) 103 mEq/L 100-108 N CARBON DIOXIDE (test code = CO2) 25 mEq/l 21-33 N ANION GAP (test code = GAP) 11 0-20 N GLUCOSE (test code = GLU) 66 mg/dL 77-141 L NOTE: NEW NORMAL RANGE BLOOD UREA NITROGEN (test code = BUN) 23 mg/dL 7-25 N NOTE: NEW NORM AL RANGE GLOMERULAR FILTRATION RATE (test code = GFR) 56.6 70-80 L The Glomerular Filtration Rate is a calculated parameterbased on serum Creatinine, patient age and sex. GFR valuesless than 60 mL/min/1.73 square meters are indicative ofChronic Kidney Disease. Values less than 15 mL/min/1.73square meters indicate Kidney failure. The calculation forGFR is based on the CKD-EPI (2020) calculation. This formulais race indifferent and is the recommended formula for GFRby the National Kidney Foundation for Adults.The GFR will not calculate if the sex is unknown or if thepatient's age is <18 years. CREATININE (test code = CREAT) 1.0 mg/dL 0.6-1.3 N CALCIUM (test code = CA) 8.2 mg/dL 8.0-10.5 N [id number] 06:23:00* Test Item Value Reference Range Interpretation Comme nts PHOSPHOROUS (test code = PHOS) 4.3 MG/DL 2.5-4.9 N [id number] 06:23:00* Test Item Value Reference Range Interpretation Comme nts MAGNESIUM (test code = MAG) 1.20 mg/dL 1.6-2.6 L NOTE: NEW NORMAL RANGE CALCIUM [id number] 06:23:00* Test Item Value Reference Range Interpretation Comme nts CALCIUM IONIZED (test code = FRANKO) 1.07 MMOL/L 1.09-1.30 L CBC W/AUTO [id number] 05:29:00* Test Item Value Reference Range Interpretation Comme nts WHITE BLOOD CELL (test code = WBC) 10.5 x10 3/uL 4.5-11.0 N RED BLOOD CELL (test code = RBC) 3.31 x10 6/uL 3.54-5.02 L HEMOGLOBIN (test code = HGB) 10.1 g/dL 11.0-15.0 L HEMATOCRIT (test code = HCT) 30.5 % 33.0-45.0 L MEAN CELL VOLUME (test code = MCV) 92.1 fL 81.0-99.0 N MEAN CELL HGB (test code = MCH) 30.5 pg 27.0-33.0 N MEAN CELL HGB CONCETRATION (test code = MCHC) 33.1 g/dL 33.0-37.0 N RED CELL DISTRIBUTION WIDTH CV (test code = RDW) 11.6 % 11.5-14.5 N RED CELL DISTRIBUTION WIDTH SD (test code = RDW-SD) 39.5 fL 37.0-54.0 N PLATELET COUNT (test code = PLT) 261 x10 3/uL 150-400 N MEAN PLATELET VOLUME (test c ode = MPV) 10.2 fL 7.0-9.0 H NEUTROPHIL % (test code = NT%) 52.6 % 56.0-77.0 L IMMATURE GRANULOCYTE % (test code = IG%) 0.6 % 0.0-2.0 N LYMPHOCYTE % (test code = LY%) 37.5 % 14.0-32.0 H MONOCYTE % (test code = MO%) 6.2 % 4.8-9.0 N EOSINOPHIL % (test code = EO%) 2.4 % 0.3-3.7 N BASOPHIL % (test code = BA%) 0.7 % 0.0-2.0 N NUCLEATED RBC % (test code = NRBC%) 0.0 % 0-0 N NEUTROPHIL # (test code = NT#) 5.55 x10 3/uL 2.0-7.6 N IMMATURE GRANULOCYTE # (test code = IG#) 0.06 x10 3/uL 0.00-0.03 H LYMPHOCYTE # (test code = LY#) 3.94 x10 3/uL 1.0-3.8 H MONOCYTE # (test code = MO#) 0.65 x10 3/uL 0.1-0.8 N EOSINOPHIL # (test code = EO#) 0.25 x10 3/uL 0.0-0.2 H BASOPHIL # (test code = BA#) 0.07 x10 3/uL 0.0-0.2 N NUCLEATED RBC # (test code = NRBC#) 0.00 x10 3/uL 0.0-0.1 N GLUCOSE [id number] 21:23:00* Test Item Value Reference Range Interpretation Comme nts GLUCOSE BEDSIDE (test code = GLUBED) 150 MG/DL 70-110 H Performed by cer tified continuous wave operator at [facility] GLUCOSE [id number] 19:37:00* Test Item Value Reference Range Interpretation Comme nts GLUCOSE BEDSIDE (test code = GLUBED) 141 MG/DL 70-110 H Performed by cer tified continuous wave operator at [facility] GLUCOSE [id number] 16:54:00* Test Item Value Reference Range Interpretation Comme nts GLUCOSE BEDSIDE (test code = GLUBED) 267 MG/DL 70-110 H Performed by cer tified continuous wave operator at [facility] GLUCOSE [id number] 11:18:00* Test Item Value Reference Range Interpretation Comme nts GLUCOSE BEDSIDE (test code = GLUBED) 128 MG/DL 70-110 H Performed by cer tified continuous wave operator at [facility] BASIC METABOLIC [id number] 08:56:00* Test Item Value Reference Range Interpretation Comme nts SODIUM (test code = NA) 139 mEq/L 134-147 N POTASSIUM (test code = K) 3.7 mEq/L 3.4-5.0 N CHLORIDE (test code = CL) 105 mEq/L 100-108 N CARBON DIOXIDE (test code = CO2) 25 mEq/l 21-33 N ANION GAP (test code = GAP) 12 0-20 N GLUCOSE (test code = GLU) 153 mg/dL 77-141 H NOTE: NEW NORMAL RANGE BLOOD UREA NITROGEN (test code = BUN) 20 mg/dL 7-25 N NOTE: NEW NORM AL RANGE GLOMERULAR FILTRATION RATE (test code = GFR) 86.8 70-80 H The Glomerular Filtration Rate is a calculated parameterbased on serum Creatinine, patient age and sex. GFR valuesless than 60 mL/min/1.73 square meters are indicative ofChronic Kidney Disease. Values less than 15 mL/min/1.73square meters indicate Kidney failure. The calculation forGFR is based on the CKD-EPI (202) calculation. This formulais race indifferent and is the recommended formula for GFRby the National Kidney Foundation for Adults.The GFR will not calculate if the sex is unknown or if thepatient's age is <18 years. CREATININE (test code = CREAT) 0.7 mg/dL 0.6-1.3 N CALCIUM (test code = CA) 8.2 mg/dL 8.0-10.5 N HGB [id number] 08:42:00* Test Item Value Reference Range Interpretation Comme nts HEMOGLOBIN (test code = HGB) 11.5 g/dL 11.0-15.0 N HEMATOCRIT (test code = HCT) 34.4 % 33.0-45.0 N [id number] 07:28:00* Test Item Value Reference Range Interpretation Comme nts ACT-ISTAT (test code = ACTI) 299 SEC 74-137 H Performed by cer tified continuous wave operator at [facility] POC ARTERIAL BLOOD [id number] 07:23:00* Test Item Value Reference Range Interpretation Comme nts POC ARTERIAL BLOOD GAS PH (t est code = POCPHA) 7.492 7.35-7.45 H POC ARTERIAL BLOOD GAS PCO2 (test code = GAUQED0H) 29.0 mmHg 35.0-45 LL POC TCO2 ARTERIAL (test code = POCTCO2) 23.1 POC ARTERIAL BLOOD GAS PO2 ( test code = UQQSZ2F) 573.4 mmHg 80-100.0 HH POC HCO3 ARTERIAL (test code = QGEEJW8S) 22.2 MMOL/L 22.0-26.0 N POC BASE EXCESS (test code = POCBEA) -0.4 MMOL/L -4.0-4.0 N POC O2 SATURATION (test code = POCO2S) 100.0 % 90-100 N BASIC METABOLIC [id number] 07:23:00* Test Item Value Reference Range Interpretation Comme nts SODIUM (test code = NA/ABG) 140 mmol/L 134-147 N POTASSIUM (test code = K/ABG) 3.3 mmol/L 3.4-5.0 L CHLORIDE (test code = CL/ABG) 107 mmol/L 100-108 N CREATININE ABG (test code = CREAABG) 0.5 mg/dL 0.6-1.0 L POC IONIZED CALCIUM (test co de = POCCA) 1.08 MMOL/L 1.12-1.32 L POC GLUCOSE (test code = POCGLU) 138 MG/DL 70-110 H HEMOGLOBIN [id number] 07:23:00* Test Item Value Reference Range Interpretation Comme nts HEMOGLOBIN ABG (test code = HGB/ABG) 10.6 G/DL 11.0-15.0 L [id number] 07:23:00* Test Item Value Reference Range Interpretation Comme nts HEMATOCRIT (test code = HCT/ABG) 31 % 33.0-45.0 L POC LACTIC [id number] 07:23:00* Test Item Value Reference Range Interpretation Comme nts POC LACTIC ACID (test code = POCLAC) < 0.3 mmol/l 0.9-1.7 L GLUCOSE [id number] 06:32:00* Test Item Value Reference Range Interpretation Comme nts GLUCOSE BEDSIDE (test code = GLUBED) 80 MG/DL 70-110 N Performed by cer tified continuous wave operator at [facility] UA RFLX MICR CULT IF [id number] 14:07:00* Test Item Value Reference Range Interpretation Comme nts UA COLOR (test code = COLU) YELLOW YEL/STRAW UA APPEARANCE (test code = APPU) CLEAR CLEAR UA GLUCOSE DIPSTICK (test co de = DGLUU) 3+ NEGATIVE A UA BILIRUBIN DIPSTICK (test code = BILU) NEGATIVE NEGATIVE UA KETONE DIPSTICK (test cod e = KETU) NEGATIVE NEGATIVE UA SPECIFIC GRAVITY (test co de = SGU) 1.026 1.005-1.030 N UA BLOOD DIPSTICK (test code = BERKLEY) NEGATIVE NEGATIVE UA PH DIPSTICK (test code = BRITTA) 5.0 5.0-7.0 N UA PROTEIN DIPSTICK (test co de = PROU) NEGATIVE NEGATIVE UA UROBILINIOGEN DIPSTICK (t est code = URO) 0.2 mg/dL 0.2-1.0 UA NITRITE DIPSTICK (test co de = CANDIDO) NEGATIVE NEGATIVE UA LEUKOCYTE ESTERASE DIPSTI CK (test code = LEUU) NEGATIVE NEGATIVE UA WBC (test code = WBCU) 0-3 WBC/HPF 0-3 UA RBC (test code = RBCU) 0-3 RBC/HPF 0-3 UA WBC NO REFLEX (test code = WBCUCL) 0-3 WBC/HPF 0-3 UA BACTERIA (test code = BACU) TRACE /HPF NONE SEEN UA SQUAMOUS CELLS (test code = SQU) 0-5 /HPF NONE SEEN UA MUCUS (test code = MUCU) TRACE /LPF NONE SEEN Indication for culture: RiskForSepsis-no oth srcSpecimen Description: CLEAN CATCHCOMPREHENSIVE METABOLIC [id number] 14:03:00* Test Item Value Reference Range Interpretation Comme nts SODIUM (test code = NA) 139 mEq/L 134-147 N POTASSIUM (test code = K) 3.8 mEq/L 3.4-5.0 N CHLORIDE (test code = CL) 100 mEq/L 100-108 N CARBON DIOXIDE (test code = CO2) 30 mEq/l 21-33 N ANION GAP (test code = GAP) 13 0-20 N GLUCOSE (test code = GLU) 132 mg/dL 77-141 N NOTE: NEW NORMAL RANGE BLOOD UREA NITROGEN (test code = BUN) 18 mg/dL 7-25 N NOTE: NEW NORM AL RANGE GLOMERULAR FILTRATION RATE (test code = GFR) 64.2 70-80 L The Glomerular Filtration Rate is a calculated parameterbased on serum Creatinine, patient age and sex. GFR valuesless than 60 mL/min/1.73 square meters are indicative ofChronic Kidney Disease. Values less than 15 mL/min/1.73square meters indicate Kidney failure. The calculation forGFR is based on the CKD-EPI (2020) calculation. This formulais race indifferent and is the recommended formula for GFRby the National Kidney Foundation for Adults.The GFR will not calculate if the sex is unknown or if thepatient's age is <18 years. CREATININE (test code = CREAT) 0.9 mg/dL 0.6-1.3 N TOTAL PROTEIN (test code = PROT) 6.2 g/dL 6.4-8.2 L ALBUMIN (test code = ALB) 3.20 g/dL 3.4-5.0 L CALCIUM (test code = CA) 9.4 mg/dL 8.0-10.5 N BILIRUBIN TOTAL (test code = BILT) 0.50 mg/dL 0.0-1.0 N SGOT/AST (test code = AST) 15 IUnit/L 8-34 N NOTE: NEW NORMAL RANGE SGPT/ALT (test code = ALT) 9 IUnit/L 10-49 L NOTE: NEW NORMAL RANGE ALKALINE PHOSPHATASE TOTAL (test code = ALKP) 61 IUnit/L 20-125 N PROTHROMBIN [id number] 13:57:00* Test Item Value Reference Range Interpretation Comme nts PROTHROMBIN TIME PATIENT (test code = PTP) 13.0 SECONDS 9.3-12.9 H INTERNATIONAL NORMAL RATIO (test code = INR) 1.2 0.8-1.2 N TARGET INR BY INDICATION Indication INR1. Prophylaxis of venous thrombosis 2.0 - 3.0 (orthopedic surgery), Prophylaxis of venous thrombosis (other than high-risk surgery), Treatment of Deep Vein Thrombosis/Pulmonary Embolism, Prevention of systemic embolism - Tissue heart valves, Acute Myocardial Infarction (to prevent systemic embolism), Valvular heart disease, Atrial Fibrillation, Bileaflet mechanical valve in aortic position.2. Mechanical prosthetic valves (high risk), 2.5 - 3.5 Presence of Lupus Anticoagulant or Antiphospholipid Antibodies, Prevention of systemic embolism - Acute Myocardial Infarction (to prevent recurrent infarct). THROMBOPLASTIN TIME [id number] 13:57:00* Test Item Value Reference Range Interpretation Comme [facility] THROMBOPLASTIN TIME PARTIAL (test code = PTT) 40.2 Seconds 25.0-39.5 H Therapeutic Rang e: 50.4 - 88.3 Seconds Effective 06/17/2018 COVID 19 Asymptomatic IH [id number] 13:57:00* Test Item Value Reference Range Interpretation Comme nts COVID 19 Asymptomatic IH AG (test code = COVNONPUIAG) Negative Negative A negative resul t is presumptive and should be confirmedwith an FDA authorized molecular assay, if necessary forpatient management.A positive result does not rule out co-infections withother pathogens.This test detects both viable (live) and non-viable,SARS-CoV, and SARS-CoV-2. Test performance depends on theamount of virus (antigen) in the sample.This test has not been FDA cleared or approved; the test hasbeen authorized by FDA under an Emergency Use Authorization(EUA) for use by laboratories certified under the CLIA thatmeet the requirements to perform moderate, high or waivedcomplexity tests. CBC W/AUTO [id number] 13:44:00* Test Item Value Reference Range Interpretation Comme nts WHITE BLOOD CELL (test code = WBC) 8.9 x10 3/uL 4.5-11.0 N RED BLOOD CELL (test code = RBC) 4.18 x10 6/uL 3.54-5.02 N HEMOGLOBIN (test code = HGB) 12.8 g/dL 11.0-15.0 N HEMATOCRIT (test code = HCT) 38.9 % 33.0-45.0 N MEAN CELL VOLUME (test code = MCV) 93.1 fL 81.0-99.0 N MEAN CELL HGB (test code = MCH) 30.6 pg 27.0-33.0 N MEAN CELL HGB CONCETRATION (test code = MCHC) 32.9 g/dL 33.0-37.0 L RED CELL DISTRIBUTION WIDTH CV (test code = RDW) 11.8 % 11.5-14.5 N RED CELL DISTRIBUTION WIDTH SD (test code = RDW-SD) 40.1 fL 37.0-54.0 N PLATELET COUNT (test code = PLT) 350 x10 3/uL 150-400 N MEAN PLATELET VOLUME (test c ode = MPV) 10.4 fL 7.0-9.0 H NEUTROPHIL % (test code = NT%) 47.6 % 56.0-77.0 L IMMATURE GRANULOCYTE % (test code = IG%) 0.2 % 0.0-2.0 N LYMPHOCYTE % (test code = LY%) 41.1 % 14.0-32.0 H MONOCYTE % (test code = MO%) 5.3 % 4.8-9.0 N EOSINOPHIL % (test code = EO%) 4.9 % 0.3-3.7 H BASOPHIL % (test code = BA%) 0.9 % 0.0-2.0 N NUCLEATED RBC % (test code = NRBC%) 0.0 % 0-0 N NEUTROPHIL # (test code = NT#) 4.21 x10 3/uL 2.0-7.6 N IMMATURE GRANULOCYTE # (test code = IG#) 0.02 x10 3/uL 0.00-0.03 N LYMPHOCYTE # (test code = LY#) 3.64 x10 3/uL 1.0-3.8 N MONOCYTE # (test code = MO#) 0.47 x10 3/uL 0.1-0.8 N EOSINOPHIL # (test code = EO#) 0.43 x10 3/uL 0.0-0.2 H BASOPHIL # (test code = BA#) 0.08 x10 3/uL 0.0-0.2 N NUCLEATED RBC # (test code = NRBC#) 0.00 x10 3/uL 0.0-0.1 N - XR CHEST 2 [id number] 13:15:00 [facility] : 1940 Sex: F FAX: Pauly Bonilla MD [phone] [place]: St: PRE FAX: Jc Loyola MD [phone] ----- Name: MORENA SHEFFIELD [facility] : 1940 Age/S: 82/F [address] [place] [address] Unit #: [id number] Loc: [place] [address] Phys: Pauly Michelle MD Acct: [id number] Dis Date: Status: PRE [facility] PHONE #: [phone] Exam Date: 12/18/2022 1250 FAX #: [phone] Reason: PREOP EXAMS: CPT CODE: [id number] XR CHEST 2 V 96305 CHEST 2 VIEWS: INDICATION: PREOP COMPARISON: None Location: C3 FINDINGS: PA and lateral views of the chest are presented. The heart size is normal with a normal cardiomediastinal contour. The lung weldon are clear. No apparent pleural effusion nor pneumothorax. The bony structures are unremarkable. IMPRESSION: No acute cardiopulmonary abnormality seen. at 1315 Reported and signed by: Roderick Covington M.D. CC:Pauly Michelle MD; Jc Gregg MD Technologist: JAH Reed) Trnscrd Date/Time/By: 12/18/2022 (7336) : By: [email or web address] Orig Print D/T: S: 12/18/2022 (4698) PAGE 1 Signed ReportCBC W/AUTO [id number] 00:00:00* Test Item Value Reference Range Interpretation Comme nts NUCLEATED RBCS (test code = 42517-2) 0.0 /100 WBC'S See_Comment [Automated messa ge] The system which generated this result transmitted reference range: 0.0 /100 WBC'S. The reference range was not used to interpret this result as normal/abnormal. ABSOLUTE EOSINOPHILS (test code = 16438-0) 0.47 K/UL See_Comment [Automated messa ge] The system which generated this result transmitted reference range: 0.00-0.50 K/UL. The reference range was not used to interpret this result as normal/abnormal. ABSOLUTE LYMPHOCYTES (test code = 90318-5) 3.05 K/UL See_Comment [Automated messa ge] The system which generated this result transmitted reference range: 1.00-4.00 K/UL. The reference range was not used to interpret this result as normal/abnormal. ABSOLUTE MONOCYTES (test code = 88220-7) 0.39 K/UL See_Comment [Automated messa ge] The system which generated this result transmitted reference range: 0.20-1.00 K/UL. The reference range was not used to interpret this result as normal/abnormal. ABSOLUTE NEUTROPHILS (test code = 24259-3) 3.87 K/UL See_Comment [Automated messa ge] The system which generated this result transmitted reference range: 1.50-7.50 K/UL. The reference range was not used to interpret this result as normal/abnormal. BASOPHILS (test code = 18787-1) 1.0 % EOSINOPHILS (test code = 47353-0) 6.0 % HEMATOCRIT (test code = 16179-6) 41.6 % See_Comment [Automated messa ge] The system which generated this result transmitted reference range: 34.0-45.0 %. The reference range was not used to interpret this result as normal/abnormal. HEMOGLOBIN (test code = 718-7) 14.0 G/DL See_Comment [Automated messa ge] The system which generated this result transmitted reference range: 11.5-15.5 G/DL. The reference range was not used to interpret this result as normal/abnormal. LYMPHOCYTES (test code = 14338-0) 38.7 % MCH (test code = 54120-4) 30.5 PG See_Comment [Automated messa ge] The system which generated this result transmitted reference range: 25.0-33.0 PG. The reference range was not used to interpret this result as normal/abnormal. MCHC (test code = 39381-4) 33.7 G/DL See_Comment [Automated messa ge] The system which generated this result transmitted reference range: 31.0-36.0 G/DL. The reference range was not used to interpret this result as normal/abnormal. MCV (test code = 45549-8) 90.6 fL See_Comment [Automated messa ge] The system which generated this result transmitted reference range: 80.0-99.0 fL. The reference range was not used to interpret this result as normal/abnormal. MONOCYTES (test code = 15722-6) 4.9 % NEUTROPHILS (test code = 50272-0) 49.1 % PLATELET COUNT (test code = 99194-0) 281 K/UL See_Comment [Automated messa ge] The system which generated this result transmitted reference range: 130-400 K/UL. The reference range was not used to interpret this result as normal/abnormal. RBC (test code = 24381-2) 4.59 M/UL See_Comment [Automated messa ge] The system which generated this result transmitted reference range: 3.80-5.40 M/UL. The reference range was not used to interpret this result as normal/abnormal. RDW (test code = 60469-2) 12.0 % See_Comment [Automated messa ge] The system which generated this result transmitted reference range: 11.5-15.0 %. The reference range was not used to interpret this result as normal/abnormal. WBC (test code = 90960-2) 7.9 K/UL See_Comment [Automated messa ge] The system which generated this result transmitted reference range: 3.5-11.0 K/UL. The reference range was not used to interpret this result as normal/abnormal. Notes Date/Time Note Provider Source 2022-12-22 13:50:00 [facility] ([facility]) Discharge Summary REPORT#:[id number] REPORT STATUS: Signed REPORT INITIALIZATION DATE:12/22/22 TIME: 1350 PATIENT: MORENA SHEFFIELD UNIT #: [id number] ROOM/BED: [place] [address] : 41 AGE: 82 SEX: F ATTEND: Pauly Michelle MD ADM AUTHOR: Tonia Sampson TRAFFIC EXPERT REPT SERVICE DT/TIME: 12/22/22 1350 * ALL edits or amendments must be made on the electronic/computer document * PCP PCP Discharge to: home General Information Discharge date: 12/22/22 Discharge diagnosis: S/p CEA Hospital course: 82 F, pmhx DM, HTN, Afib on xarelto, HLD, carotid stenosis. Patient referred to us by Dr. Olvera and presents to outpatient surgery for elective carotid endarterectomy. Patient denies any history of dizziness, syncope, TIA or Stroke. Patient is post op CEA recovering in ICU. Assessment: Carotid Stenosis, s/p Right CEA HTN Afib on Xarelto 12/21/2022 S/P Right CEA Hemodynamically stable, no gtts, 2 L NC. Reports minimal pain. Right neck incision approximated, dressing CDI, FERNANDO drain with minimal output. No hematoma No gross neurological deficit, reports eating and dringing with out cough. - possible DC tomorrow Discussed with Dr. Michelle 12/22/2022 POD 1. S/P CEA Gross neuro exam normal, no focal decficit noted, speech and swallow normal, denies headache. FERNANDO drain DC'd. Right neck incision approximated with dermabond, some bruising noted, minimal swelling. - resume Aspirin and XARELTO - follow up in post op clinic 1-2 weeks Discharge instructions and wound care instructions provided. Patient seen and examined by Dr. Michelle. Cleared for discharge Consultants: cardiovascular surgery, critical/edge runner Med Rec Med Rec Discharge meds: Continue taking these medications: MULTIVITAMIN (MULTIPLE VITAMIN) 1 TAB TAB 1 TABLET ORAL DAILY. OMEPRAZOLE ER (OMEPRAZOLE ER) 20 MG CAP.DR 20 MILLIGRAM ORAL DAILY. metFORMIN (GLUCOPHAGE) 1,000 MG TAB 1,000 MILLIGRAM ORAL TWICE DAILY. SOTALOL (BETAPACE) 160 MG TAB 160 MILLIGRAM ORAL TWICE DAILY. amLODIPine (NORVASC) 10 MG TAB 5 MILLIGRAM ORAL DAILY-AM LISINOPRIL/HCTZ (LISINOPRIL/HCTZ 20/25 MG) 20 MG-25 MG TAB 1 TABLET ORAL DAILY-AM ESTRADIOL (ESTRACE) 2 MG TAB 2 MILLIGRAM ORAL DAILY. EMPAGLIFLOZIN (JARDIANCE) 25 MG TAB 25 MILLIGRAM ORAL DAILY-AM glipiZIDE XL (GLUCOTROL XL) 2.5 MG TAB.ER 2.5 MILLIGRAM ORAL TWICE DAILY. SEMAGLUTIDE (OZEMPIC PEN (2 MG/3mL)) 2 MG/3 ML PEN.INJCTR 0.5 MILLIGRAM SUBCUTANEOUS EVERY 7 DAYS. CHOLECALCIFEROL (VITAMIN D3) (VITAMIN D3) 25 MCG (1,000 UNIT) CAP 1,000 UNITS ORAL DAILY. VIT C/E/ZN/COPPR/LUTEIN/ZEAXAN (OCUVITE LUTEIN) 60 MG-13.5 MG-15 MG-2 MG-6 MG CAP 1 CAPSULE ORAL DAILY. PRAVASTATIN (PRAVACHOL) 80 MG TAB 80 MILLIGRAM ORAL BEDTIME. RIVAROXABAN (XARELTO) 20 MG TAB 20 MILLIGRAM ORAL DAILY-PM Start taking the following new medications: ASPIRIN (ASPIRIN) 81 MG TAB.CHEW 81 MILLIGRAM ORAL DAILY. Qty = 30 Refills = 3 Discharge Instructions PCP )( Discharge to: Home/Self Care Discharge Instructions Additional Discharge Routines: Full Stack Net Developer Follow-Up, Wound/Dressing Care )( Diet: Resume Home Diet/Feeds )( Activity: Resume Normal Activity, As Tolerated, Do not Submerge Incision, No Driving, No Lifting >20lbs, Shower Only )( Wound/dressing care: Clean wound daily, Do not submerge incision, Keep wound clean and dry, OK to shower tomorrow Follow-up Appointments Consulting provider 1: Provider 1: Pauly Michelle MD Specialty: Thoracic Surgery Consult follow up timeframe: In 2-3 weeks at 1353 at 1535 RPT #:[id number] END OF REPORT [facility] 2022-12-22 10:49:00 [facility] ([facility]) Critical Care Progress Note REPORT#:[id number] REPORT STATUS: Signed REPORT INITIALIZATION DATE:12/22/22 TIME: 104 PATIENT: MORENA SHEFFIELD UNIT #: [id number] ROOM/BED: [place] [address] : 41 AGE: 82 SEX: F ATTEND: Pauly Michelle MD ADM AUTHOR: Alexandria Sullivan DIETARY ASSISTANT REPT SERVICE DT/TIME: 12/22/22 1049 * ALL edits or amendments must be made on the electronic/computer document * Subjective Chief complaint: Carotid stenosis HPI: Patient is a 82-year-old female with past medical history of diabetes, hypertension, A-fib, hiatal hernia, cataract surgery, right femoral surgery with rods, left arm surgery with screws, hysterectomy, back surgery, cholecystectomy, appendectomy presents for an elective carotid endarterectomy with Dr. Michelle. Seen patient in CCU 3313, awake alert oriented, conversant. NIHSS 0. Right neck incision site covered with sterile dressing, CDI, FERNANDO in place with minimal output. Objective General VS/I O Last Documented: Result Date Time Pulse Ox 95 12/22 744 B/P 101/55 12/22 744 B/P Mean 75 12/22 744 Pulse 63 12/22 0745 Resp 21 12/22 0745 O2 Delivery Room air 12/22 06 Temp 98.7 12/22 06 O2 Flow Rate 6 12/21 0847 24 hour I O ending at 0700: 12/22 0700 12/21 1900 Intake Total 150 315 Output Total 100 350 Balance 50 -35 Intake, Oral 150 315 Number 0 Bowel Movements Output, Urine 100 350 Patient 68.3 kg 68.2 kg Weight Weight Bed scale Bed scale Measurement Method PATIENT WEIGHT: Weight (lb): 150 Weight (oz): 9.21 Weight (kg): 68.300 Medications: Active Meds + DC'd Last 24 Hrs Sotalol HCl (BETAPACE) 160 MG DAILY PO Amlodipine Besylate (NORVASC) 5 MG DAILY PO Aspirin (ASPIRIN) 81 MG DAILY PO Cholecalciferol (VITAMIN D) 1,000 INTL.UNITS DAILY PO (CKD) Clopidogrel Bisulfate (Plavix) 75 MG DAILY PO Hydrochlorothiazide (HYDRODIURIL) 25 MG DAILY PO (DA) Lisinopril (ZESTRIL) 20 MG DAILY PO (CAN) Hydrochlorothiazide (HYDRODIURIL) 25 MG Lisinopril (ZESTRIL) 20 MG DAILY PO (DA) Multivitamins (TAB-A-JOSE FRANCISCO) 1 TAB DAILY PO Calcium Gluconate (Calcium Gluconate 1 GM/NS 50 mL (B2)) 50 ML ONCE ONE IV (DC) Magnesium Sulfate (MAGNESIUM SULFATE 4GM/SWFI 100ML) 100 ML ONCE ONE IV Pantoprazole (PROTONIX) 40 MG DAILY 0600 PO Pravastatin Sodium (PRAVACHOL) 80 MG BEDTIME PO Sotalol HCl (BETAPACE) 160 MG BID PO (DC) Glipizide (GLUCOTROL) 2.5 MG AC BK DIN PO Insulin Human Lispro (HUMALOG) 0 AC HS SUBQ Estradiol (ESTRACE) 2 MG DAILY PO Potassium Chloride (K-JO ANN 20 MEQ PACKET) 20 MEQ ONCE ONE PO (DC) Dextrose/Water (DEXTROSE 10% IN WATER) 125 ML ASDIR PRN IV (CKD) Dextrose/Water (DEXTROSE 10% IN WATER) 250 ML ASDIR PRN IV (CKD) Glucagon (GLUCAGON) 1 MG ASDIR PRN IM Mupirocin (BACTROBAN 2% 22 GM OINTMENT) 1 APPLIC BID NASAL Docusate Sodium (COLACE) 100 MG BID PO Acetaminophen (TYLENOL) 650 MG Q4H PRN PRN PO Bisacodyl (DULCOLAX) 10 MG DAILY PRN PRN RECTAL Hydralazine HCl (APRESOLINE) 10 MG Q6H PRN PRN IV Magnesium Hydroxide (MILK OF MAGNESIA) 30 ML Q6H PRN PRN PO Ondansetron HCl (ZOFRAN) 4 MG Q6H PRN PRN IV Clindamycin Phosphate/Dextrose (Clindamycin 900 mg/D5W 50 mL) 50 ML PREOP ONCALL IV (CKD) Vancomycin HCl (VANCOMYCIN HCL) 1,000 MG PREOP ONCALL IV (CKD) Sodium Chloride (SODIUM CHLORIDE 0.9%) 250 ML Physical Exam General appearance: alert, awake, oriented, conversational, no respiratory distress Head/eyes: atraumatic, normocephalic, PERRLA Neck: decreased range of motion Cardiovascular: normal capillary refill, normal heart sounds, regular rate and rhythm Respiratory: aerating well, clear to auscultation, symmetric expansion, no distress Abdomen: soft, non-tender, no distention, no guarding, no rebound Genitourinary: no bladder distention, no flank pain, no urinary catheter Extremities: moves all, normal capillary refill Neuro/CONTINUOUS IMPROVEMENT MANAGER: alert, oriented X 3, normal speech, no motor deficits, no sensory deficits Wound/incision: Location: Right neck incision site covered with sterile dressing, CDI, FERNANDO drain in place Psychiatry: normal affect, normal mood Results Findings/data: Laboratory Tests 12/22 12/22 12/21 12/21 12/21 0741 0444 2107 1642 1053 Chemistry Sodium (134 - 147 mEq/L) 135 Potassium (3.4 - 5.0 mEq/L) 3.9 Chloride (100 - 108 mEq/L) 103 Carbon Dioxide (21 - 33 mEq/l) 25 Anion Gap (0 - 20) 11 BUN (7 - 25 mg/dL) 23 Creatinine (0.6 - 1.3 mg/dL) 1.0 Glomerular Filtr Rate (70 - 80) 56.6 L Glucose (77 - 141 mg/dL) 66 L POC Glucose (70 - 110 MG/DL) 81 150 H 267 H 128 H Calcium (8.0 - 10.5 mg/dL) 8.2 Ionized Calcium Daryl (1.09 - 1.30 1.07 L MMOL/L) Phosphorus (2.5 - 4.9 MG/DL) 4.3 Magnesium (1.6 - 2.6 mg/dL) 1.20 L Laboratory Tests 12/224 Hematology WBC (4.5 - 11.0 x10 3/uL) 10.5 RBC (3.54 - 5.02 x10 6/uL) 3.31 L Hgb (11.0 - 15.0 g/dL) 10.1 L Hct (33.0 - 45.0 %) 30.5 L MCV (81.0 - 99.0 fL) 92.1 MCH (27.0 - 33.0 pg) 30.5 MCHC (33.0 - 37.0 g/dL) 33.1 RDW (11.5 - 14.5 %) 11.6 Plt Count (150 - 400 x10 3/uL) 261 MPV (7.0 - 9.0 fL) 10.2 H Neut % (Auto) (56.0 - 77.0 %) 52.6 L Lymph % (Auto) (14.0 - 32.0 %) 37.5 H [place] % (Auto) (4.8 - 9.0 %) 6.2 Eos % (Auto) (0.3 - 3.7 %) 2.4 Baso % (Auto) (0.0 - 2.0 %) 0.7 Neut # (Auto) (2.0 - 7.6 x10 3/uL) 5.55 Lymph # (Auto) (1.0 - 3.8 x10 3/uL) 3.94 H [place] # (Auto) (0.1 - 0.8 x10 3/uL) 0.65 Eos # (Auto) (0.0 - 0.2 x10 3/uL) 0.25 H Baso # (Auto) (0.0 - 0.2 x10 3/uL) 0.07 Abs Immat Gran (auto) (0.00 - 0.03 x10 3/uL) 0.06 H Immature Gran % (0.0 - 2.0 %) 0.6 Nucleated RBC % (0 - 0 %) 0.0 Nucleated RBCs # (Man) (0.0 - 0.1 x10 3/uL) 0.00 Laboratory Tests 12/22/22 0444: [Embedded Image Not Available] Radiology data Recent Impressions: RADIOLOGY - XR CHEST 1 V 12/23 0741 Report Impression - Status: SIGNED Entered: 12/22/2022 0843 IMPRESSION: No radiographic evidence of acute cardiopulmonary disease. Impression By: [email or web address] - Ericka Mast M.D. Diagnosis, Assessment Plan Problem list/A P: 1. Carotid stenosis 2. Diabetes mellitus 3. Status post carotid endarterectomy Free text A P: Patient is a 82-year-old female with past medical history of diabetes, hypertension, A-fib, hiatal hernia, cataract surgery, right femoral surgery with rods, left arm surgery with screws, hysterectomy, back surgery, cholecystectomy, appendectomy presents for an elective carotid endarterectomy with Dr. Michelle. Seen patient in CCU 3313, awake alert oriented, conversant. NIHSS 0. Right neck incision site covered with sterile dressing, CDI, FERNANDO in place with minimal output. Plans: 12/22/2022 Seen and examined. Vital signs per unit protocol Continuous cardiac and saturation monitoring IS Q4 while awake Neurovacular checks per unit protocol Neck circumferential checks Tramadol for pain Monitor blood pressure, PRN hydralazine Aspirin, Plavix per CTS Monitor hemoglobin and surgical site for bleeding FERNANDO output 25 mL Post procedure hemoglobin at 11.5 Hemoglobin today 10.1 Monitor and document surgical drain output Bedside swallowing test Bowel care ISS, glucose checks ACHS Resume home meds as appropriate PT evaluation, OOB to chair Plan to DC home today, per CTS I spent 35 minutes of critical care reviewing labs, imaging and discussing plan of care with ICC team, patient, family and nurse. Consultants: cardiovascular surgery, critical/edge runner Code status: full code Plan discussed with: patient, family, nurse, interdisc care team Critical care time: Minutes: 35 at 1500 RPT #:[id number] END OF REPORT [facility] 2022-12-22 09:16:00 [facility] ([facility]) Cardiology Progress Note REPORT#:[id number] REPORT STATUS: Signed REPORT INITIALIZATION DATE:12/22/22 TIME: 915 PATIENT: MORENA SHEFFIELD UNIT #: [id number] ROOM/BED: [address] : [birth year] AGE: 82 SEX: F ATTEND: Pauly Michelle MD ADM AUTHOR: Rae Kidd REPT SERVICE DT/TIME: 12/22/22915 * ALL edits or amendments must be made on the electronic/computer document * Subjective Comments: Doing good. no acute cardiac event overnight. BP remains soft. Objective General VS/I O: 24 hour I O ending at 0700: 12/22 0700 12/21 1900 Intake Total 150 315 Output Total 100 350 Balance 50 -35 Intake, Oral 150 315 Number 0 Bowel Movements Output, Urine 100 350 Patient 68.3 kg 68.2 kg Weight Weight Bed scale Bed scale Measurement Method Vital Signs Date Temp Pulse Resp B/P B/P Mean Pulse Ox FiO2 12/21-12/22 36.1-37.1 59-67 14-34 91-120/42-64 60-81 93-98 PATIENT WEIGHT: Weight (lb): 150 Weight (oz): 9.21 Weight (kg): 68.300 Medications: Active Meds + DC'd Last 24 Hrs Amlodipine Besylate (NORVASC) 5 MG DAILY PO Aspirin (ASPIRIN) 81 MG DAILY PO Cholecalciferol (VITAMIN D) 1,000 INTL.UNITS DAILY PO (CKD) Clopidogrel Bisulfate (Plavix) 75 MG DAILY PO Hydrochlorothiazide (HYDRODIURIL) 25 MG DAILY PO (DA) Lisinopril (ZESTRIL) 20 MG DAILY PO (CAN) Hydrochlorothiazide (HYDRODIURIL) 25 MG Lisinopril (ZESTRIL) 20 MG DAILY PO (DA) Multivitamins (TAB-A-JOSE FRANCISCO) 1 TAB DAILY PO Calcium Gluconate (Calcium Gluconate 1 GM/NS 50 mL (B2)) 50 ML ONCE ONE IV (DC) Magnesium Sulfate (MAGNESIUM SULFATE 4GM/SWFI 100ML) 100 ML ONCE ONE IV Pantoprazole (PROTONIX) 40 MG DAILY 0600 PO Pravastatin Sodium (PRAVACHOL) 80 MG BEDTIME PO Sotalol HCl (BETAPACE) 160 MG BID PO Glipizide (GLUCOTROL) 2.5 MG AC BK DIN PO Insulin Human Lispro (HUMALOG) 0 AC HS SUBQ Estradiol (ESTRACE) 2 MG DAILY PO Potassium Chloride (K-JO ANN 20 MEQ PACKET) 20 MEQ ONCE ONE PO (DC) Dextrose/Water (DEXTROSE 10% IN WATER) 125 ML ASDIR PRN IV (CKD) Dextrose/Water (DEXTROSE 10% IN WATER) 250 ML ASDIR PRN IV (CKD) Glucagon (GLUCAGON) 1 MG ASDIR PRN IM Mupirocin (BACTROBAN 2% 22 GM OINTMENT) 1 APPLIC BID NASAL Diphenhydramine HCl (BENADRYL) 12.5 MG PACU ONCE PRN IV (DC) Docusate Sodium (COLACE) 100 MG BID PO Fentanyl Citrate (SUBLIMAZE) 100 MCG PACU Q10MIN PRN PRN IV (DC) Fentanyl Citrate (SUBLIMAZE) 50 MCG PACU Q10MIN PRN PRN IV (DC) Hydralazine HCl (APRESOLINE) 5 MG PACU Q10MIN PRN PRN IV (DC) Hydrocodone Bitart/Acetaminophen (NORCO 5/325) 1 TAB PACU ONCE PO (DC) Hydromorphone HCl (DILAUDID) 1 MG PACU Q10MIN PRN PRN IV (DC) Hydromorphone HCl (DILAUDID) 0.5 MG PACU Q5MIN PRN PRN IV (DC) Insulin Human Lispro (HUMALOG) 0 PACU ONCE PRN SUBQ (DC) Labetalol HCl (LABETALOL HCL) 5 MG PACU Q10MIN PRN PRN IV (DC) Meperidine HCl (MEPERIDINE HCL/PF) 12.5 MG PACU ONCE PRN IV (DC) Morphine Sulfate (morphine SULFATE) 2 MG PACU Q10MIN PRN PRN IV (DC) Ondansetron HCl (ZOFRAN) 4 MG PACU ONCE PRN IV (DC) Promethazine HCl (PHENERGAN) 25 MG PACU ONCE PRN PO (DC) Ropivacaine (NAROPIN 0.5% 150 MG/30mL) 150 MG ASDIR PRN LOCAL (DC) Tramadol HCl (ULTRAM) 50 MG PACU ONCE PO (DC) Acetaminophen (TYLENOL) 650 MG Q4H PRN PRN PO Bisacodyl (DULCOLAX) 10 MG DAILY PRN PRN RECTAL Hydralazine HCl (APRESOLINE) 10 MG Q6H PRN PRN IV Magnesium Hydroxide (MILK OF MAGNESIA) 30 ML Q6H PRN PRN PO Ondansetron HCl (ZOFRAN) 4 MG Q6H PRN PRN IV Clindamycin Phosphate/Dextrose (Clindamycin 900 mg/D5W 50 mL) 50 ML PREOP ONCALL IV (CKD) Vancomycin HCl (VANCOMYCIN HCL) 1,000 MG PREOP ONCALL IV (CKD) Sodium Chloride (SODIUM CHLORIDE 0.9%) 250 ML Physical Exam General appearance: alert, awake Neck: non-tender, no JVD Cardiovascular: CV assessment: regular rate and rhythm, BP pulses = bilaterally, normal heart sounds Respiratory: clear to auscultation, no distress Abdomen: soft, normal bowel sounds Lower extremity: LE assessment: no calf tenderness, no cyanosis, no edema Musculoskeletal: normal inspection Neuro/CONTINUOUS IMPROVEMENT MANAGER: alert, oriented X 3, normal speech Skin: dry Wound/incision: Location: Right neck incision covered with dressing. FERNANDO drain in place. Psychiatry: normal affect, normal mood Results Findings/Data: Laboratory Tests 12/22 12/22 12/21 12/21 12/21 0741 0444 2107 1642 1053 Chemistry Sodium (134 - 147 mEq/L) 135 Potassium (3.4 - 5.0 mEq/L) 3.9 Chloride (100 - 108 mEq/L) 103 Carbon Dioxide (21 - 33 mEq/l) 25 Anion Gap (0 - 20) 11 BUN (7 - 25 mg/dL) 23 Creatinine (0.6 - 1.3 mg/dL) 1.0 Glomerular Filtr Rate (70 - 80) 56.6 L Glucose (77 - 141 mg/dL) 66 L POC Glucose (70 - 110 MG/DL) 81 150 H 267 H 128 H Calcium (8.0 - 10.5 mg/dL) 8.2 Ionized Calcium Daryl (1.09 - 1.30 MMOL/L) 1.07 L Phosphorus (2.5 - 4.9 MG/DL) 4.3 Magnesium (1.6 - 2.6 mg/dL) 1.20 L Laboratory Tests 12/224 Hematology WBC (4.5 - 11.0 x10 3/uL) 10.5 RBC (3.54 - 5.02 x10 6/uL) 3.31 L Hgb (11.0 - 15.0 g/dL) 10.1 L Hct (33.0 - 45.0 %) 30.5 L MCV (81.0 - 99.0 fL) 92.1 MCH (27.0 - 33.0 pg) 30.5 MCHC (33.0 - 37.0 g/dL) 33.1 RDW (11.5 - 14.5 %) 11.6 Plt Count (150 - 400 x10 3/uL) 261 MPV (7.0 - 9.0 fL) 10.2 H Neut % (Auto) (56.0 - 77.0 %) 52.6 L Lymph % (Auto) (14.0 - 32.0 %) 37.5 H [place] % (Auto) (4.8 - 9.0 %) 6.2 Eos % (Auto) (0.3 - 3.7 %) 2.4 Baso % (Auto) (0.0 - 2.0 %) 0.7 Neut # (Auto) (2.0 - 7.6 x10 3/uL) 5.55 Lymph # (Auto) (1.0 - 3.8 x10 3/uL) 3.94 H [place] # (Auto) (0.1 - 0.8 x10 3/uL) 0.65 Eos # (Auto) (0.0 - 0.2 x10 3/uL) 0.25 H Baso # (Auto) (0.0 - 0.2 x10 3/uL) 0.07 Abs Immat Gran (auto) (0.00 - 0.03 x10 3/uL) 0.06 H Immature Gran % (0.0 - 2.0 %) 0.6 Nucleated RBC % (0 - 0 %) 0.0 Nucleated RBCs # (Man) (0.0 - 0.1 x10 3/uL) 0.00 Laboratory Tests 12/22 0444 Chemistry Magnesium (1.6 - 2.6 mg/dL) 1.20 L Radiology data: Recent Impressions: RADIOLOGY - XR CHEST 1 V 12/22 0841 Report Impression - Status: SIGNED Entered: 12/22/2022 0843 IMPRESSION: No radiographic evidence of acute cardiopulmonary disease. Impression By: [email or web address] - Ericka Mast M.D. Results: labs reviewed, vital signs reviewed, rhythm personally rev'd Telemetry Interpretation: sinus rhythm Diagnosis, Assessment Plan Problem List/A P: 1. Carotid stenosis 2. Status post carotid endarterectomy Plan discussed with: patient, daughter, collaborating MD, nurse Free Text DxA P Notes Free Text DxA P Notes: This is a pleasant 82-year-old lady with medical history of hypertension, diabetes mellitus, paroxysmal atrial fibrillation, and carotid artery disease. She underwent successful right carotid endarterectomy. Cardiology is consulted for continuity of cardiac related care. 1. Carotid artery disease status post right carotid endarterectomy * She is doing well. Awake and alert. Moving all extremities. Hemodynamically stable. * On Plavix and aspirin * Postop care per cardiothoracic surgery 2. Paroxysmal atrial fibrillation -currently normal sinus rhythm * Restart Xarelto once okay with cardiothoracic surgery * Patient is not a good candidate for triple therapy. May have to drop either aspirin or Plavix once Xarelto is restarted * continue sotalol to maintain sinus rhythm * replace low Magnesium 3. Hypertension * Hold all antihypertensive medications due to soft blood pressure. 4. Diabetes mellitus * continue oral hypoglycemic * On semaglutide-resume outpatient Disposition per CTS. at 1138 at 1352 RPT #:[id number] END OF REPORT [facility] 2022-12-21 14:32:00 [facility] ([facility]) Cardiology Consultation REPORT#:[id number] REPORT STATUS: Signed REPORT INITIALIZATION DATE:12/21/22 TIME: 1431 PATIENT: MORENA SHEFFIELD UNIT #: [id number] ROOM/BED: [place] [address] : 41 AGE: 82 SEX: F ATTEND: Pauly Michelle MD ADM AUTHOR: Rae Kidd REPT SERVICE DT/TIME: 12/21/221431 * ALL edits or amendments must be made on the electronic/computer document * Rae Kidd 12/21/22 1432: History of Present Illness HPI Requesting Clinician: Dr. Michelle Reason for consult: S/p CEA PCP: PCP: Jc Gregg MD HPI: This is a pleasant 82-year-old lady with medical history of hypertension, diabetes mellitus, paroxysmal atrial fibrillation, and carotid artery disease. She underwent successful carotid endarterectomy. Cardiology is consulted for continuity of cardiac related care. Hx Obtained From Patient, Daughter, Prior medical records History - Adult longitudinal Additional medical history: 1. Diabetes mellitus 2. Paroxysmal atrial fibrillation, on chronic anticoagulation with Xarelto 3. Hypertension 4. Hyperlipidemia 5. Carotid artery disease. Additional surgical history: 1. Cataract surgery 2. right femoral surgery with rods 3. Lleft arm surgery with screws 4. hysterectomy 5. cholecystectomy 6. appendectomy Alcohol use: Denies EtOH use Drug use: Denies recreational drugs Smoking status for patients 13 years old or older: Never Smoker Home medications: Home Medications: amLODIPine (NORVASC) 5 MG PO DAILY-AM MULTIVITAMIN (MULTIPLE VITAMIN) 1 TAB PO DAILY OMEPRAZOLE ER 20 MG PO DAILY metFORMIN (GLUCOPHAGE) 1,000 MG PO BID SOTALOL (BETAPACE) 160 MG PO BID LISINOPRIL/HCTZ (LISINOPRIL/HCTZ 20/25 MG) 1 TAB PO DAILY-AM ESTRADIOL (ESTRACE) 2 MG PO DAILY EMPAGLIFLOZIN (JARDIANCE) 25 MG PO DAILY-AM glipiZIDE XL (GLUCOTROL XL) 2.5 MG PO BID SEMAGLUTIDE (OZEMPIC PEN (2 MG/3mL)) 0.5 MG SUBQ Q7D CHOLECALCIFEROL (VITAMIN D3) (VITAMIN D3) 1,000 UNITS PO DAILY VIT C/E/ZN/COPPR/LUTEIN/ZEAXAN (OCUVITE LUTEIN) 1 CAP PO DAILY PRAVASTATIN (PRAVACHOL) 80 MG PO BEDTIME RIVAROXABAN (XARELTO) 20 MG PO DAILY-PM Allergies: Coded Allergies: Penicillins (RASH 12/18/22) Ambulatory status: Independent Review of Systems Constitutional: Denies: generalized weakness. Respiratory: Denies: productive cough (sputum), SOB. Cardiovascular: Denies: chest pain, dyspnea on exertion, edema, orthopnea, palpitations, parox noctural dyspnea, unstable angina. GI: Denies: abdominal pain, nausea, rectal pain. Neuro: Denies: confusion, dizziness, unable to speak, vision change, weakness. Objective General VS/I O: Vital Signs Date Temp Pulse Resp B/P B/P Mean Pulse Ox FiO2 12/21 36.1-36.3 60-67 14-34 91-149/42-93 60-112 93-98 PATIENT WEIGHT: Weight (lb): 150 Weight (oz): 5.68 Weight (kg): 68.200 Medications: Active Meds + DC'd Last 24 Hrs Aspirin (ASPIRIN) 81 MG DAILY PO Clopidogrel Bisulfate (Plavix) 75 MG DAILY PO Insulin Human Lispro (HUMALOG) 0 AC HS SUBQ Potassium Chloride (K-JO ANN 20 MEQ PACKET) 20 MEQ ONCE ONE PO (DC) Dextrose/Water (DEXTROSE 10% IN WATER) 125 ML ASDIR PRN IV (CKD) Dextrose/Water (DEXTROSE 10% IN WATER) 250 ML ASDIR PRN IV (CKD) Glucagon (GLUCAGON) 1 MG ASDIR PRN IM Mupirocin (BACTROBAN 2% 22 GM OINTMENT) 1 APPLIC BID NASAL Fentanyl Citrate (SUBLIMAZE) 0 .STK-MED ONE IV (DC) Diphenhydramine HCl (BENADRYL) 12.5 MG PACU ONCE PRN IV (DC) Docusate Sodium (COLACE) 100 MG BID PO Fentanyl Citrate (SUBLIMAZE) 100 MCG PACU Q10MIN PRN PRN IV (DC) Fentanyl Citrate (SUBLIMAZE) 50 MCG PACU Q10MIN PRN PRN IV (DC) Hydralazine HCl (APRESOLINE) 5 MG PACU Q10MIN PRN PRN IV (DC) Hydrocodone Bitart/Acetaminophen (NORCO 5/325) 1 TAB PACU ONCE PO (DC) Hydromorphone HCl (DILAUDID) 1 MG PACU Q10MIN PRN PRN IV (DC) Hydromorphone HCl (DILAUDID) 0.5 MG PACU Q5MIN PRN PRN IV (DC) Insulin Human Lispro (HUMALOG) 0 PACU ONCE PRN SUBQ (DC) Labetalol HCl (LABETALOL HCL) 5 MG PACU Q10MIN PRN PRN IV (DC) Meperidine HCl (MEPERIDINE HCL/PF) 12.5 MG PACU ONCE PRN IV (DC) Morphine Sulfate (morphine SULFATE) 2 MG PACU Q10MIN PRN PRN IV (DC) Ondansetron HCl (ZOFRAN) 4 MG PACU ONCE PRN IV (DC) Promethazine HCl (PHENERGAN) 25 MG PACU ONCE PRN PO (DC) Ropivacaine (NAROPIN 0.5% 150 MG/30mL) 150 MG ASDIR PRN LOCAL (DC) Tramadol HCl (ULTRAM) 50 MG PACU ONCE PO (DC) Sugammadex Sodium (BRIDION) 0 .STK-MED ONE IV (DC) Acetaminophen (TYLENOL) 650 MG Q4H PRN PRN PO Bisacodyl (DULCOLAX) 10 MG DAILY PRN PRN RECTAL Hydralazine HCl (APRESOLINE) 10 MG Q6H PRN PRN IV Magnesium Hydroxide (MILK OF MAGNESIA) 30 ML Q6H PRN PRN PO Ondansetron HCl (ZOFRAN) 4 MG Q6H PRN PRN IV Clindamycin Phosphate/Dextrose (Clindamycin 600 MG/D5W 50 ML) 50 ML .STK-MED ONE IV (DC) Heparin Sodium (HEPARIN SODIUM) 0 .STK-MED ONE .ROUTE (DC) Lidocaine HCl (XYLOCAINE IV) 0 .STK-MED ONE IV (DC) Thrombin (RECOTHROM) 0 .STK-MED ONE TOPICAL (DC) Dexamethasone Sodium Phosphate (DECADRON) 0 .STK-MED ONE .ROUTE (DC) Fentanyl Citrate (SUBLIMAZE) 0 .STK-MED ONE .ROUTE (DC) Heparin Sodium (HEPARIN SODIUM) 0 .STK-MED ONE .ROUTE (DC) Lidocaine HCl (XYLOCAINE) 0 .STK-MED ONE .ROUTE (DC) Ondansetron HCl (ZOFRAN) 0 .STK-MED ONE .ROUTE (DC) Propofol (DIPRIVAN 200MG/20ML INJECTION) 20 ML .STK-MED ONE IV (DC) Rocuronium [place] (ZEMURON) 0 .STK-MED ONE IV (DC) Clindamycin Phosphate/Dextrose (Clindamycin 900 mg/D5W 50 mL) 50 ML PREOP ONCALL IV (CKD) Vancomycin HCl (VANCOMYCIN HCL) 1,000 MG PREOP ONCALL IV (CKD) Sodium Chloride (SODIUM CHLORIDE 0.9%) 250 ML Acetaminophen (TYLENOL EXTRA STRENGTH) 1,000 MG PREOP ONCALL PO (DC) Gabapentin (NEURONTIN) 200 MG PREOP ONCALL PO (DC) Lactated Ringer's (LACTATED RINGERS) 1,000 ML PREOP ONCALL IV (DC) Lidocaine HCl (LIDOCAINE HCL/PF) 2 ML PREOP ONCALL LOCAL (DC) Lidocaine HCl (LIDOCAINE HCL/PF) 2 ML PREOP ONCALL LOCAL (DC) Sodium Chloride (SODIUM CHLORIDE 0.9%) 500 ML PREOP ONCALL IV (DC) Sodium Chloride (SODIUM CHLORIDE 0.9%) 500 ML PREOP ONCALL IV (DC) Sodium Chloride (SODIUM CHLORIDE 0.9%) 1,000 ML PREOP ONCALL IV (DC) Sodium Chloride (SODIUM CHLORIDE) 5 ML ASDIR PRN IV (DC) Sodium Chloride (SODIUM CHLORIDE) 10 ML ASDIR PRN IV (DC) Sodium Chloride (SODIUM CHLORIDE 0.9%) 250 ML ASDIR PRN IV (DC) Physical Exam General appearance: alert, awake Neck: non-tender, no JVD Cardiovascular: CV assessment: regular rate and rhythm, BP pulses = bilaterally, normal heart sounds Respiratory: clear to auscultation, no distress Abdomen: soft, normal bowel sounds Lower extremity: LE assessment: no calf tenderness, no cyanosis, no edema Musculoskeletal: normal inspection Neuro/CONTINUOUS IMPROVEMENT MANAGER: alert, oriented X 3, normal speech Skin: dry Wound/incision: Location: Right neck incision covered with dressing. FERNANDO drain in place. Psychiatry: normal affect, normal mood Results Findings/Data: Laboratory Tests 12/21 0717 Blood Gas O2 Saturation (90 - 100 %) 100.0 ABG pH (7.35 - 7.45) 7.492 H ABG pCO2 (35.0 - 45 mmHg) 29.0 *L ABG pO2 (80 - 100.0 mmHg) 573.4 *H ABG HCO3 (22.0 - 26.0 MMOL/L) 22.2 ABG Total CO2 23.1 ABG Base Excess (-4.0 - 4.0 MMOL/L) -0.4 ABG Hematocrit (33.0 - 45.0 %) 31 L ABG Hemoglobin (11.0 - 15.0 G/DL) 10.6 L Sodium (134 - 147 mmol/L) 140 Potassium (3.4 - 5.0 mmol/L) 3.3 L Chloride (100 - 108 mmol/L) 107 Ionized Calcium (1.12 - 1.32 MMOL/L) 1.08 L Lactic Acid (0.9 - 1.7 mmol/l) < 0.3 L Laboratory Tests 12/21 12/21 12/21 12/21 1053 0815 0717 0616 Chemistry Sodium (134 - 147 mEq/L) 139 Potassium (3.4 - 5.0 mEq/L) 3.7 Chloride (100 - 108 mEq/L) 105 Carbon Dioxide (21 - 33 mEq/l) 25 Anion Gap (0 - 20) 12 BUN (7 - 25 mg/dL) 20 Creatinine (0.6 - 1.3 mg/dL) 0.7 POC Creatinine (0.6 - 1.0 mg/dL) 0.5 L Glomerular Filtr Rate (70 - 80) 86.8 H Glucose (77 - 141 mg/dL) 153 H POC Glucose (70 - 110 MG/DL) 128 H 80 POC Glucose (mg/dL) (70 - 110 MG/DL) 138 H Calcium (8.0 - 10.5 mg/dL) 8.2 Laboratory Tests 12/21 0717 Coagulation Activated Coag Time (74 - 137 SEC) 299 H Laboratory Tests 12/21 0815 Hematology Hgb (11.0 - 15.0 g/dL) 11.5 Hct (33.0 - 45.0 %) 34.4 Results: labs reviewed, vital signs reviewed, rhythm personally rev'd Telemetry Interpretation: Sinus rhythm Diagnosis, Assessment Plan Problem List/A P: 1. Carotid stenosis 2. Status post carotid endarterectomy Plan discussed with: patient, daughter, nurse Free Text DxA P Notes Free Text DxA P Notes: This is a pleasant 82-year-old lady with medical history of hypertension, diabetes mellitus, paroxysmal atrial fibrillation, and carotid artery disease. She underwent successful right carotid endarterectomy. Cardiology is consulted for continuity of cardiac related care. 1. Carotid artery disease status post right carotid endarterectomy * She is doing well. Awake and alert. Moving all extremities. Hemodynamically stable. * On Plavix and aspirin * Postop care per cardiothoracic surgery 2. Paroxysmal atrial fibrillation -currently normal sinus rhythm * Restart Xarelto once okay with cardiothoracic surgery * Patient is not a good candidate for triple therapy. May have to drop either aspirin or Plavix once Xarelto is restarted 3. Hypertension * Hold all antihypertensive medications due to soft blood pressure. 4. Diabetes mellitus * Resume oral hypoglycemic * On semaglutide-resume outpatient Appreciate the referral. Genie Newby 12/21/22 1824: Attestations Physician Attestation Agree w/findings plan: I've seen and examined the pt, I Agree with the findings and plan as documented by Rae Kidd. at 1720 at 1824 RPT #:[id number] END OF REPORT [facility] 2022-12-21 14:17:00 [facility] ([facility]) DT Operative Note REPORT#:[id number] REPORT STATUS: Signed REPORT INITIALIZATION DATE:12/21/22 TIME: 1416 PATIENT: MORENA SHEFFIELD UNIT #: [id number] ROOM/BED: [place] [address] : 41 AGE: 82 SEX: F ATTEND: Pauly Michelle MD ADM AUTHOR: Pauly Michelle MD REPT SERVICE DT/TIME: 12/21/221416 * ALL edits or amendments must be made on the electronic/computer document * Operative Report Operative Note Note: Preoperative diagnosis: Asymptomatic severe Right internal carotid artery stenosis Postoperative diagnosis: Asymptomatic severe Right internal carotid artery stenosis Operation: Right carotid endarterectomy Surgeon: Wilson Michelle MD Plant Anatomy Teacher: Kvng Kiran Anesthesiologist: Rula Montes De Oca MD Anesthesia: General endotracheal anesthesia Estimated blood loss: 20 cc Indication: Ms Sheffield is a very pleasant 82-year-old female severe right internal carotid artery stenosis. After due preop counseling she was brought to the operating room today for right carotid endarterectomy. Findings: 1. Calcified plaque at the bifurcation of the right common carotid artery leading to a pinhole opening in the right internal carotid artery. 2. Good endpoint in the right internal carotid artery following endarterectomy. 3. The hypoglossal nerve was identified and protected throughout the procedure. 4. The tongue was in the midline and patient was moving all extremities at the end of the procedure. Procedure: Ms Sheffield was identified in the preop holding area and brought to the operating room and placed supine on the operating table. After induction of general endotracheal anesthesia at the right side of the neck was prepped and draped in standard surgical fashion. A 4 cm incision was made along the anterior border of the middle third right sternocleidomastoid. Platysma was divided with Bovie cautery. The deep cervical fascia was opened. The facial vein was identified dissected ligated and divided. Hypoglossal nerve was identified and protected throughout the procedure. The right common carotid artery, the right internal carotid artery, and right external carotid artery were identified, dissected and isolated. Patient was heparinized with 7000 units of heparin. After waiting for 3 minutes the bifurcation of the right common carotid artery was isolated with 3 profunda clamp. Arteriotomy was performed on the right common carotid artery and extended onto the right internal carotid artery using Laboy scissors. A [place] shunt was then placed in the right common and internal carotid artery. Next using a [place]rington dissector endarterectomy of the right common and internal carotid artery was performed. Endarterectomy of the right external carotid artery was performed using eversion technique. There was a good endpoint in the right internal carotid artery. Next patch repair of the right common and internal carotid artery was performed using bovine pericardial patch and running 6-0 Prolene suture. Prior to tying the patch down Coto shunt was removed and careful dilation was performed. Next 7 FERNANDO drain was placed in the wound. Hemostasis was confirmed and the neck was closed in layers using #2 Vicryl for the platysma and 4-0 Vicryl for the skin. Patient was extubated in the operating room and moved to PACU in stable condition. at 1419 RPT #:[id number] END OF REPORT [facility] 2022-12-21 12:24:00 [facility] Critical Care Consult Note REPORT#:[id number] REPORT STATUS: Signed REPORT INITIALIZATION DATE:12/21/22 TIME: 1223 PATIENT: MORENA SHEFFIELD UNIT #: [id number] ROOM/BED: [place] [address] : 41 AGE: 82 SEX: F ATTEND: Pauly Michelle MD ADM AUTHOR: Alexandria Sullivan DIETARY ASSISTANT REPT SERVICE DT/TIME: 12/21/22 1224 * ALL edits or amendments must be made on the electronic/computer document * History of Present Illness HPI Requesting clinician: Dr Michelle Reason for consult: Status post right CEA Chief complaint: Carotid stenosis PCP: PCP: Jc Gregg MD HPI: Patient is a 82-year-old female with past medical history of diabetes, hypertension, A-fib, hiatal hernia, cataract surgery, right femoral surgery with rods, left arm surgery with screws, hysterectomy, back surgery, cholecystectomy, appendectomy presents for an elective carotid endarterectomy with Dr. Michelle. Seen patient in CCU 3313, awake alert oriented, conversant. NIHSS 0. Right neck incision site covered with sterile dressing, CDI, FERNANDO in place with minimal output. History - Adult longitudinal Additional medical history: DM, HTN, A-fib, hiatal hernia Additional surgical history: Cataract surgery, right femoral surgery with rods, left arm surgery with screws, hysterectomy, cholecystectomy, appendectomy Smoking status for patients 13 years old or older: Never Smoker Allergies: Coded Allergies: Penicillins (RASH 12/18/22) Review of Systems ROS Constitutional: Denies: chills, fatigue, fever. Respiratory: Denies: ZIMMERMAN (dyspnea on exertion), hemoptysis, non productive cough, SOB. Cardiovascular: Denies: chest pain, ZIMMERMAN (dyspnea on exertion), edema, palpitations. GI: Denies: constipation, diarrhea, GERD. : Denies: hematuria, pelvic pain, urinary retention. Musculoskeletal: Denies: arthritis, extremity pain, extremity swelling. Endocrine: Denies: cold intolerance, heat intolerance. All systems rev neg: except as marked Objective Physical Exam VS/I O: Last Documented: Result Date Time Pulse Ox 98 12/21 1317 B/P 94/42 12/21 1317 B/P Mean 60 12/21 1317 Pulse 63 12/21 1317 Resp 23 12/21 1317 Temp 97.4 12/21 1200 O2 Delivery Simple mask 12/21 0847 O2 Flow Rate 6 12/21 0847 Patient Weight and BMI Weight (kg): 68.200 BMI: 23.5 Medications: Active Meds + DC'd Last 24 Hrs Aspirin (ASPIRIN) 81 MG DAILY PO Clopidogrel Bisulfate (Plavix) 75 MG DAILY PO Insulin Human Lispro (HUMALOG) 0 AC HS SUBQ Dextrose/Water (DEXTROSE 10% IN WATER) 125 ML ASDIR PRN IV (CKD) Dextrose/Water (DEXTROSE 10% IN WATER) 250 ML ASDIR PRN IV (CKD) Glucagon (GLUCAGON) 1 MG ASDIR PRN IM Mupirocin (BACTROBAN 2% 22 GM OINTMENT) 1 APPLIC BID NASAL Fentanyl Citrate (SUBLIMAZE) 0 .STK-MED ONE IV (DC) Diphenhydramine HCl (BENADRYL) 12.5 MG PACU ONCE PRN IV (DC) Docusate Sodium (COLACE) 100 MG BID PO Fentanyl Citrate (SUBLIMAZE) 100 MCG PACU Q10MIN PRN PRN IV (DC) Fentanyl Citrate (SUBLIMAZE) 50 MCG PACU Q10MIN PRN PRN IV (DC) Hydralazine HCl (APRESOLINE) 5 MG PACU Q10MIN PRN PRN IV (DC) Hydrocodone Bitart/Acetaminophen (NORCO 5/325) 1 TAB PACU ONCE PO (DC) Hydromorphone HCl (DILAUDID) 1 MG PACU Q10MIN PRN PRN IV (DC) Hydromorphone HCl (DILAUDID) 0.5 MG PACU Q5MIN PRN PRN IV (DC) Insulin Human Lispro (HUMALOG) 0 PACU ONCE PRN SUBQ (DC) Labetalol HCl (LABETALOL HCL) 5 MG PACU Q10MIN PRN PRN IV (DC) Meperidine HCl (MEPERIDINE HCL/PF) 12.5 MG PACU ONCE PRN IV (DC) Morphine Sulfate (morphine SULFATE) 2 MG PACU Q10MIN PRN PRN IV (DC) Ondansetron HCl (ZOFRAN) 4 MG PACU ONCE PRN IV (DC) Promethazine HCl (PHENERGAN) 25 MG PACU ONCE PRN PO (DC) Ropivacaine (NAROPIN 0.5% 150 MG/30mL) 150 MG ASDIR PRN LOCAL (DC) Tramadol HCl (ULTRAM) 50 MG PACU ONCE PO (DC) Sugammadex Sodium (BRIDION) 0 .STK-MED ONE IV (DC) Acetaminophen (TYLENOL) 650 MG Q4H PRN PRN PO Bisacodyl (DULCOLAX) 10 MG DAILY PRN PRN RECTAL Hydralazine HCl (APRESOLINE) 10 MG Q6H PRN PRN IV Magnesium Hydroxide (MILK OF MAGNESIA) 30 ML Q6H PRN PRN PO Ondansetron HCl (ZOFRAN) 4 MG Q6H PRN PRN IV Clindamycin Phosphate/Dextrose (Clindamycin 600 MG/D5W 50 ML) 50 ML .STK-MED ONE IV (DC) Heparin Sodium (HEPARIN SODIUM) 0 .STK-MED ONE .ROUTE (DC) Lidocaine HCl (XYLOCAINE IV) 0 .STK-MED ONE IV (DC) Thrombin (RECOTHROM) 0 .STK-MED ONE TOPICAL (DC) Dexamethasone Sodium Phosphate (DECADRON) 0 .STK-MED ONE .ROUTE (DC) Fentanyl Citrate (SUBLIMAZE) 0 .STK-MED ONE .ROUTE (DC) Heparin Sodium (HEPARIN SODIUM) 0 .STK-MED ONE .ROUTE (DC) Lidocaine HCl (XYLOCAINE) 0 .STK-MED ONE .ROUTE (DC) Ondansetron HCl (ZOFRAN) 0 .STK-MED ONE .ROUTE (DC) Propofol (DIPRIVAN 200MG/20ML INJECTION) 20 ML .STK-MED ONE IV (DC) Rocuronium [place] (ZEMURON) 0 .STK-MED ONE IV (DC) Clindamycin Phosphate/Dextrose (Clindamycin 900 mg/D5W 50 mL) 50 ML PREOP ONCALL IV (CKD) Vancomycin HCl (VANCOMYCIN HCL) 1,000 MG PREOP ONCALL IV (CKD) Sodium Chloride (SODIUM CHLORIDE 0.9%) 250 ML Acetaminophen (TYLENOL EXTRA STRENGTH) 1,000 MG PREOP ONCALL PO (DC) Gabapentin (NEURONTIN) 200 MG PREOP ONCALL PO (DC) Lactated Ringer's (LACTATED RINGERS) 1,000 ML PREOP ONCALL IV (DC) Lidocaine HCl (LIDOCAINE HCL/PF) 2 ML PREOP ONCALL LOCAL (DC) Lidocaine HCl (LIDOCAINE HCL/PF) 2 ML PREOP ONCALL LOCAL (DC) Sodium Chloride (SODIUM CHLORIDE 0.9%) 500 ML PREOP ONCALL IV (DC) Sodium Chloride (SODIUM CHLORIDE 0.9%) 500 ML PREOP ONCALL IV (DC) Sodium Chloride (SODIUM CHLORIDE 0.9%) 1,000 ML PREOP ONCALL IV (DC) Sodium Chloride (SODIUM CHLORIDE) 5 ML ASDIR PRN IV (DC) Sodium Chloride (SODIUM CHLORIDE) 10 ML ASDIR PRN IV (DC) Sodium Chloride (SODIUM CHLORIDE 0.9%) 250 ML ASDIR PRN IV (DC) General appearance: alert, awake, oriented, conversational, no respiratory distress Neck: decreased range of motion Cardiovascular: normal capillary refill, normal heart sounds, regular rate and rhythm Respiratory: aerating well, clear to auscultation, symmetric expansion, no distress Abdomen: soft, non-tender, no distention, no guarding, no rebound Genitourinary: no bladder distention, no flank pain, no urinary catheter Extremities: moves all, normal capillary refill Neuro/CONTINUOUS IMPROVEMENT MANAGER: alert, oriented X 3, normal speech, no motor deficits, no sensory deficits Wound/incision: Location: Right neck incision site covered with sterile dressing, CDI, FERNANDO drain in place Psychiatry: normal affect, normal mood Results Findings/Data: Laboratory Tests 12/21/22 0815: [Embedded Image Not Available] Laboratory Tests 12/21 0717 Blood Gas O2 Saturation (90 - 100 %) 100.0 ABG pH (7.35 - 7.45) 7.492 H ABG pCO2 (35.0 - 45 mmHg) 29.0 *L ABG pO2 (80 - 100.0 mmHg) 573.4 *H ABG HCO3 (22.0 - 26.0 MMOL/L) 22.2 ABG Total CO2 23.1 ABG Base Excess (-4.0 - 4.0 MMOL/L) -0.4 ABG Hematocrit (33.0 - 45.0 %) 31 L ABG Hemoglobin (11.0 - 15.0 G/DL) 10.6 L Sodium (134 - 147 mmol/L) 140 Potassium (3.4 - 5.0 mmol/L) 3.3 L Chloride (100 - 108 mmol/L) 107 Ionized Calcium (1.12 - 1.32 MMOL/L) 1.08 L Lactic Acid (0.9 - 1.7 mmol/l) < 0.3 L Laboratory Tests 12/21 12/21 12/21 12/21 1053 0815 0717 0616 Chemistry Sodium (134 - 147 mEq/L) 139 Potassium (3.4 - 5.0 mEq/L) 3.7 Chloride (100 - 108 mEq/L) 105 Carbon Dioxide (21 - 33 mEq/l) 25 Anion Gap (0 - 20) 12 BUN (7 - 25 mg/dL) 20 Creatinine (0.6 - 1.3 mg/dL) 0.7 POC Creatinine (0.6 - 1.0 mg/dL) 0.5 L Glomerular Filtr Rate (70 - 80) 86.8 H Glucose (77 - 141 mg/dL) 153 H POC Glucose (70 - 110 MG/DL) 128 H 80 POC Glucose (mg/dL) (70 - 110 MG/DL) 138 H Calcium (8.0 - 10.5 mg/dL) 8.2 Laboratory Tests 12/21 0717 Coagulation Activated Coag Time (74 - 137 SEC) 299 H Laboratory Tests 12/21 0815 Hematology Hgb (11.0 - 15.0 g/dL) 11.5 Hct (33.0 - 45.0 %) 34.4 Diagnosis, Assessment Plan Diagnosis, Assessment Plan Problem list/A P: 1. Carotid stenosis 2. Diabetes mellitus 3. Status post carotid endarterectomy Orders: Procedure Date/time Status Educate/Teach Patient 12/21 1225 Active Notify MD: Hypoglycemia 12/21 1225 Active NPO/Low Intake Insulin Instr 12/21 1225 Active Hypoglycemia Orders 12/21 1225 Active Educate/Teach Hypoglycemia 12/21 1225 Active Correctional Insulin Instr 12/21 1225 Active Blood Glucose Monitoring 12/21 1225 Active Consultants: cardiovascular surgery, critical/edge runner Plan discussed with: patient, family, nurse, interdisc care team, pharmacy/ pharmacist Code Status/Resusc. Discussion Resuscitation discussion: Discussed with: patient and family Code status: full code Free text DxA P: Patient is a 82-year-old female with past medical history of diabetes, hypertension, A-fib, hiatal hernia, cataract surgery, right femoral surgery with rods, left arm surgery with screws, hysterectomy, back surgery, cholecystectomy, appendectomy presents for an elective carotid endarterectomy with Dr. Michelle. Seen patient in CCU 3313, awake alert oriented, conversant. NIHSS 0. Right neck incision site covered with sterile dressing, CDI, FERNANDO in place with minimal output. Plans: Vital signs per unit protocol Continuous cardiac and saturation monitoring IS Q4 while awake Neurovacular checks per unit protocol Neck circumferential checks Tramadol for pain Monitor blood pressure, PRN hydralazine Aspirin, Plavix per CTS Monitor hemoglobin and surgical site for bleeding Post procedure hemoglobin at 11.5 Monitor and document surgical drain output Bedside swallowing test Bowel care ISS, glucose checks ACHS Resume home meds as appropriate PT evaluation, OOB to chair Plan to DC home tomorrow, per CTS Thank you for allowing us to participate in the care of this patient, will follow along during hospital stay. I spent 40 minutes of critical care reviewing labs, imaging and discussing plan of care with ICC team, patient, family and nurse. at [address] [facility] #:[id number] END OF REPORT [facility] 2022-12-21 07:50:00 [facility] ([facility]) History Physical - Adult REPORT#:[id number] REPORT STATUS: Signed REPORT INITIALIZATION DATE:12/21/22 TIME: 0750 PATIENT: MORENA SHEFFIELD UNIT #: [id number] ROOM/BED: [place] [id number] : 41 AGE: 82 SEX: F ATTEND: Pauly Michelle MD ADM AUTHOR: Tonia Sampson TRAFFIC EXPERT REPT SERVICE DT/TIME: 12/21/22 0750 * ALL edits or amendments must be made on the electronic/computer document * History of Present Illness HPI HPI: 82 F, pmhx DM, HTN, Afib on xarelto, HLD, carotid stenosis. Patient referred to us by Dr. Olvera and presents to outpatient surgery for elective carotid endarterectomy. Patient denies any history of dizziness, syncope, TIA or Stroke. Patient is post op CEA recovering in ICU. History Past medical history: Reports: Atrial fibrillation, Diabetes mellitus, Hypertension. Smoking status for patients 13 years old or older: Never Smoker Medication/Allergy-Vaccine Hx Allergies: Coded Allergies: Penicillins (RASH 12/18/22) Review of Systems Constitutional: Denies: chills, fatigue, fever, generalized weakness. Skin: Denies: ecchymosis, itching, rash, swelling. Allergy/Immun: Denies: allergic reaction, anaphylaxis, hives, itching. Eyes: Denies: redness, discharge, diplopia. ENT: Denies: sore throat, throat pain, throat swelling. Respiratory: Denies: ZIMMERMAN (dyspnea on exertion), hemoptysis, non productive cough, SOB, wheezing. Cardiovascular: Denies: chest pain, ZIMMERMAN (dyspnea on exertion), edema, orthopnea, palpitations. GI: Denies: abdominal pain, diarrhea, nausea, vomiting. : Denies: dysuria, flank pain. Endocrine: Denies: polydipsia, polyphagia, polyuria. Neuro: Denies: confusion, dizziness, focal weakness, lightheaded, numbness, slurred speech, spinning sensation, syncope, vision change. Physical Exam VS/I O PATIENT WEIGHT: Weight (lb): 140 Weight (oz): 14.01 Weight (kg): 63.900 General appearance: alert, awake, oriented, no acute distress Head/Eyes: atraumatic, clear cornea, normocephalic ENT: moist mucosal membranes Neck: full range of motion, non-tender Cardiovascular: regular rate rhythm, normal heart sounds Respiratory: clear to auscultation, no distress Abdomen/GI: active bowel sounds, soft, non-tender Genitourinary: no bladder distention, no flank pain Extremities: moves all, normal capillary refill, normal range of motion Musculoskeletal: full range of motion, normal inspection Psychiatry: no hallucinations, normal affect, normal judgment/insight, normal mood Results Findings/Data: Laboratory Tests: 12/21 12/21 12/21 12/21 1053 0815 0717 0616 Blood Gas O2 Saturation (90 - 100 %) 100.0 ABG pH (7.35 - 7.45) 7.492 H ABG pCO2 (35.0 - 45 mmHg) 29.0 *L ABG pO2 (80 - 100.0 mmHg) 573.4 *H ABG HCO3 (22.0 - 26.0 MMOL/L) 22.2 ABG Total CO2 23.1 ABG Base Excess (-4.0 - 4.0 MMOL/L) -0.4 ABG Hematocrit (33.0 - 45.0 %) 31 L ABG Hemoglobin (11.0 - 15.0 G/DL) 10.6 L Sodium (134 - 147 mmol/L) 140 Potassium (3.4 - 5.0 mmol/L) 3.3 L Chloride (100 - 108 mmol/L) 107 Ionized Calcium (1.12 - 1.32 MMOL/L) 1.08 L Lactic Acid (0.9 - 1.7 mmol/l) < 0.3 L Chemistry Sodium (134 - 147 mEq/L) 139 Potassium (3.4 - 5.0 mEq/L) 3.7 Chloride (100 - 108 mEq/L) 105 Carbon Dioxide (21 - 33 mEq/l) 25 Anion Gap (0 - 20) 12 BUN (7 - 25 mg/dL) 20 Creatinine (0.6 - 1.3 mg/dL) 0.7 POC Creatinine (0.6 - 1.0 mg/dL) 0.5 L Glomerular Filtr Rate (70 - 80) 86.8 H Glucose (77 - 141 mg/dL) 153 H POC Glucose (70 - 110 MG/DL) 128 H 80 POC Glucose (mg/dL) (70 - 110 MG/DL) 138 H Calcium (8.0 - 10.5 mg/dL) 8.2 Coagulation Activated Coag Time (74 - 137 SEC) 299 H Hematology Hgb (11.0 - 15.0 g/dL) 11.5 Hct (33.0 - 45.0 %) 34.4 Diagnosis, Assessment Plan Plan discussed with: patient, collaborating MD, nurse Code Status/Resusc. Discussion Code status: full code Free Text DxA P Notes Free Text DxA P Notes: 82 F, pmhx DM, HTN, Afib on xarelto, HLD, carotid stenosis. Patient referred to us by Dr. Olvera and presents to outpatient surgery for elective carotid endarterectomy. Patient denies any history of dizziness, syncope, TIA or Stroke. Patient is post op CEA recovering in ICU. Assessment: Carotid Stenosis, s/p Right CEA HTN Afib on Xarelto 12/21/2022 S/P Right CEA Hemodynamically stable, no gtts, 2 L NC. Reports minimal pain. Right neck incision approximated, dressing CDI, FERNANDO drain with minimal output. No hematoma No gross neurological deficit, reports eating and dringing with out cough. - possible DC tomorrow Discussed with Dr. Michelle at 1606 at [address] [facility] #:[id number] END OF REPORT [facility] 2022-12-18 13:31:00 [id number] [place] [address] PATIENT NAME: MORENA SHEFFIELD ADMIT DATE: ACCOUNT NO: [id number] ROOM NO: AGE: 82 REPORT TYPE: eELECTROCARDIOGRAM REPORT SEX: F ADMITTING PHYSICIAN: ATTENDING PHYSICIAN:Pauly Michelle MD Order: [id number] Test Reason : PREOP Test Date/Time Stamp: SatDec 18 2022 13:31:00 Blood Pressure : / mmHG Vent. Rate : 071 BPM Atrial Rate : 071 BPM P-R Int : 144 ms QRS Dur : 090 ms QT Int : 404 ms P-R-T Axes : 032 057 034 degrees QTc Int : 439 ms Normal sinus rhythm Septal infarct , age undetermined Abnormal ECG No previous ECGs available Confirmed by JANNETTE GREGG MD ([id number]) on 12/18/2022 2:37:56 PM Referred By: Pauly Michelle Confirmed by:FATOU GREGG MD at 1437 PATIENT NAME: MORENA SHEFFIELD [facility]
[2024-05-09] MEDS ORDERED: SOTALOL HCL 80 MG TAB ONE (07:29)
[2024-05-09] MEDS ORDERED: FAMOTIDINE 20 MG/2 ML VIAL IV ONE (07:30)
[2024-05-09] MEDS ORDERED: NA CHLORIDE 0.9% 1,000 ML ONE (07:30)
--- NOTE | 2024-05-09 07:49 | ER ---
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 Coronavirus screen: At this time, the client does not indicate any symptoms associated with coronavirus-19. Ebola Screen: No symptoms or risks identified at this time. Initial Sepsis Screen: Does the patient meet any 2 criteria? No. Patient's initial sepsis screen is negative. Does the patient have a suspected source of infection? No. Patient's initial sepsis screen is negative. Risk Assessment: Do you want to hurt yourself or someone else? Patient reports no desire to harm self or others. Onset of symptoms was May 08, 2024. 07:16 Method Of Arrival: Ambulatory jl7 07:16 Acuity: GURPREET 3 jl7 Triage Assessment: 07:22 General: Appears in no apparent distress. uncomfortable, Behavior is calm, cooperative, jl7 appropriate for age. Pain: Denies pain. Neuro: Level of Consciousness is awake, alert, obeys commands, Oriented to person, place, time, situation. Cardiovascular: Patient's skin is warm and dry. Rhythm is regular. Respiratory: Airway is patent Respiratory effort is even, unlabored, Respiratory pattern is regular, symmetrical. Derm: Skin is pink, warm \T\ dry. Historical: - Allergies: 07:22 PENICILLINS; jl7 - PMHx: 07:22 diabetes mellitus; Atrial fibrillation; Hypertensive disorder; jl7 - Immunization history:: Adult Immunizations unknown. - Infectious Disease History:: Denies. - Social history:: Smoking status: Patient denies any tobacco usage or history of. - Family history:: not pertinent. Screenin:06 [facility] ED Fall Risk Assessment (Adult) History of falling in the last 3 months, jl7 including since admission No falls in past 3 months (0 pts) Confusion or Disorientation No (0 pts) Intoxicated or Sedated No (0 pts) Impaired Gait No (0 pts) Mobility Assist Device Used No (0 pt) Altered Elimination No (0 pt) Score/Fall Risk Level 0 - 2 = Low Risk Oriented to surroundings, Maintained a safe environment. Abuse screen: Denies threats or abuse. Denies injuries from another. Nutritional screening: No deficits noted. Tuberculosis screening: No symptoms or risk factors identified. Assessment: 11:57 Reassessment: Dr. Shane at bedside assessing pt and discussing POC. jl7 13:02 Reassessment: Dr. Shane discharged pt in [facility], pt discharged as ordered. jl7 Vital Signs: 07:16 BP 145 / 72; Pulse 97; Resp 17; Temp 97.8; Pulse Ox 99% ; Weight 64.86 kg; Height 5 ft. jl7 7 in. ; Pain 0/10; 07:30 BP 119 / 74; Pulse 94; Resp 18; Pulse Ox 100% on R/A; kn 09:39 BP 116 / 62; Pulse 75; Resp 15; Pulse Ox 97% ; jl7 12:30 BP 115 / 71; Pulse 75; Resp 15; Pulse Ox 98% ; jl7 07:16 Body Mass Index 22.40 (64.86 kg, 170.18 cm) jl7 07:16 Pain Scale: Adult jl7 April Coma Score: 07:30 Eye Response: spontaneous(4). Motor Response: obeys commands(6). Verbal Response: kn oriented(5). Total: 15. ED Course: 07:02 Patient arrived in ED. gm2 07:10 Reji Salinas MD is Attending Physician. sigifredo 07:16 Juvenal Lmi, FRANKLIN is Primary Nurse. jl7 07:22 Triage completed. jl7 07:22 Arm band placed on right wrist. jl7 07:25 EKG done, by ED staff, reviewed by Reji Salinas MD. jl7 07:30 Patient has correct armband on for positive identification. Provided Education on: use jl7 of call so. 07:30 Client placed on continuous cardiac and pulse oximetry monitoring. NIBP monitoring jl7 applied. 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 Pulse ox on. NIBP on. jl7 07:32 Inserted saline lock: 20 gauge in right antecubital area, using aseptic technique. kn 07:32 Initial lab(s) drawn, by ED staff, sent to lab. jl7 07:48 Dada Yeung is Hospitalizing Provider. [facility] 08:00 CT Head Brain wo Cont In Process Unspecified. EDMS 08:05 XRAY Chest (1 view) In Process Unspecified. EDMS 09:06 Urine collected: clean catch specimen, clear. jl7 13:06 No provider procedures requiring assistance completed. IV discontinued, intact, jl7 bleeding controlled, No redness/swelling at site. Pressure dressing applied. Administered Medications: 07:35 Drug: NS 0.9% IV 500 ml 500 ml IV at 1 bolus once; to be given as a bolus over 30 jl7 minutes Volume: 500 ml; Route: IV; Rate: 1 bolus; Site: right antecubital; 09:05 Follow up: Response: No adverse reaction; IV Status: Completed infusion; IV Intake: jl7 500ml 07:45 Drug: NS 0.9% IV 500 ml 500 ml IV at 100 ml/hr once; to be given as a bolus over 30 jl7 minutes Volume: 500 ml; Route: IV; Rate: 100 ml/hr; Site: right antecubital; 13:05 Follow up: Response: No adverse reaction; IV Status: Completed infusion jl7 07:45 Drug: Famotidine IVP 20 mg IVP once; dilute with 10 mL 0.9% NaCl; give over 2 minutes jl7 Route: IVP; Site: right antecubital; 09:05 Follow up: Response: No adverse reaction jl7 09:00 Not Given (Physician Discretion): [id number] mg PO once jl7 09:26 Drug: Magnesium Sulfate IVPB 2 grams IVPB once over 2 hrs Route: IVPB; Infused Over: 2 jl7 hrs; Site: right antecubital; 11:26 Follow up: Response: No adverse reaction; IV Status: Completed infusion jl7 Medication: 09:07 VIS not applicable for this client. jl7 Intake: 09:05 IV: 500ml; Total: 500ml. jl7 Outcome: 07:49 Decision to Hospitalize by Provider. [facility] 13:06 Discharged to home ambulatory, jl7 13:06 Condition: stable 13:06 Discharge instructions given to patient, family, Instructed on discharge instructions, follow up and referral plans. Demonstrated understanding of instructions, follow-up care, 13:09 Patient left the ED. jl7 Signatures: Dispatcher [employer] EDCA Brad, Reji, MD MD sigifredo Lim, Jahala, RN RN jl7 Sophie Zapata gm2 ABHINAV JOHN RN RN kn
--- NOTE | 2024-05-09 07:49 | EDPHYS ---
Physician Documentation [facility] Name: Margarita Lockett Age: 83 yrs Sex: Female : 1940 Arrival Date: 05/09/2024 Time: 06:58 Bed 6 Private MD: ED Physician Reji Salinas HPI: 05/09 07:33 This 83 yrs old Female presents to ER via Ambulatory with complaints of sigifredo Dizziness, AFIB. 07:33 The patient presents with dizziness, generalized weakness. Onset: The symptoms/episode sigifredo began/occurred just prior to arrival. Context: occurred at home. Modifying factors: The symptoms are alleviated by nothing. Associated signs and symptoms: The patient has no apparent associated signs or symptoms. Severity of symptoms: At their worst the symptoms were mild moderate in the emergency department the symptoms are unchanged. Patient's baseline: Neuro: alert and fully oriented. The patient has experienced similar episodes in the past, several times. Historical: - Allergies: 07:22 PENICILLINS; jl7 - PMHx: 07:22 diabetes mellitus; Atrial fibrillation; Hypertensive disorder; jl7 - Immunization history:: Adult Immunizations unknown. - Infectious Disease History:: Denies. - Social history:: Smoking status: Patient denies any tobacco usage or history of. - Family history:: not pertinent. ROS: 07:33 Constitutional: Negative for fever, chills, and weight loss, Eyes: Negative for injury, sigifredo pain, redness, and discharge, ENT: Negative for injury, pain, and discharge, Neck: Negative for injury, pain, and swelling, Respiratory: Negative for shortness of breath, cough, wheezing, and pleuritic chest pain, Abdomen/GI: Negative for abdominal pain, nausea, vomiting, diarrhea, and constipation, Back: Negative for injury and pain, : Negative for injury, bleeding, discharge, and swelling, MS/Extremity: Negative for injury and deformity, Skin: Negative for injury, rash, and discoloration, Psych: Negative for depression, anxiety, suicide ideation, homicidal ideation, and hallucinations, Allergy/Immunology: Negative for hives, rash, and allergies, Endocrine: Negative for neck swelling, polydipsia, polyuria, polyphagia, and marked weight changes, Hematologic/Lymphatic: Negative for swollen nodes, abnormal bleeding, and unusual bruising, 07:33 Cardiovascular: Positive for palpitations, 07:33 Neuro: Positive for dizziness, weakness, Exam: 07:33 Constitutional: This is a well developed, well nourished patient who is awake, alert, sigifredo and in no acute distress. Head/Face: Normocephalic, atraumatic. Eyes: Pupils equal round and reactive to light, extra-ocular motions intact. Lids and lashes normal. Conjunctiva and sclera are non-icteric and not injected. Cornea within normal limits. Periorbital areas with no swelling, redness, or edema. ENT: Nares patent. No nasal discharge, no septal abnormalities noted. Tympanic membranes are normal and external auditory canals are clear. Oropharynx with no redness, swelling, or masses, exudates, or evidence of obstruction, uvula midline. Mucous membranes moist. Neck: Trachea midline, no thyromegaly or masses palpated, and no cervical lymphadenopathy. Supple, full range of motion without nuchal rigidity, or vertebral point tenderness. No Meningismus. Chest/axilla: Normal chest wall appearance and motion. Nontender with no deformity. No lesions are appreciated. Cardiovascular: Regular rate and rhythm with a normal S1 and S2. No gallops, murmurs, or rubs. Normal PMI, no JVD. No pulse deficits. Respiratory: Lungs have equal breath sounds bilaterally, clear to auscultation and percussion. No rales, rhonchi or wheezes noted. No increased work of breathing, no retractions or nasal flaring. Abdomen/GI: Soft, non-tender, with normal bowel sounds. No distension or tympany. No guarding or rebound. No evidence of tenderness throughout. Back: No spinal tenderness. No costovertebral tenderness. Full range of motion. Skin: Warm, dry with normal turgor. Normal color with no rashes, no lesions, and no evidence of cellulitis. MS/ Extremity: Pulses equal, no cyanosis. Neurovascular intact. Full, normal range of motion., bilateral aka Neuro: Awake and alert, GCS 15, oriented to person, place, time, and situation. Cranial nerves II-XII grossly intact. Motor strength 5/5 in all extremities. Sensory grossly intact. Cerebellar exam normal. Normal gait. Psych: Awake, alert, with orientation to person, place and time. Behavior, mood, and affect are within normal limits. 07:33 ECG was reviewed by the Attending Physician. Vital Signs: 07:16 BP 145 / 72; Pulse 97; Resp 17; Temp 97.8; Pulse Ox 99% ; Weight 64.86 kg; Height 5 ft. jl7 7 in. ; Pain 0/10; 07:30 BP 119 / 74; Pulse 94; Resp 18; Pulse Ox 100% on R/A; kn 09:39 BP 116 / 62; Pulse 75; Resp 15; Pulse Ox 97% ; jl7 12:30 BP 115 / 71; Pulse 75; Resp 15; Pulse Ox 98% ; jl7 07:16 Body Mass Index 22.40 (64.86 kg, 170.18 cm) jl7 07:16 Pain Scale: Adult jl7 [place] Coma Score: 07:30 Eye Response: spontaneous(4). Motor Response: obeys commands(6). Verbal Response: kn oriented(5). Total: 15. MDM: 07:10 Medical Screening Exam initiated sigifredo 07:41 Differential diagnosis: cardiac arrhythmia, CVA, generalized weakness, idiopathic sigifredo dizziness, near-syncope, sepsis, TIA. Data reviewed: vital signs, nurses notes, lab test result(s), EKG, radiologic studies, CT scan, plain films. Consideration of Admission/Observation Patient was admitted/placed on observation. Escalation of care including admission/observation considered. I considered the following discharge prescriptions or medication management in the emergency department Medications were administered in the Emergency Department. See MAR. Independent interpretation of the following test(s) in the Emergency Department EKG: See my EKG interpretation above. Test considered but Not performed: EKG: no 2 d echo. Historians other than the Patient: Daughter/Son: daughter well in formed. Care significantly affected by the following chronic conditions: Diabetes, Hypertension, a fib. Counseling: I had a detailed discussion with the patient and/or guardian regarding the historical points, exam findings, and any diagnostic results supporting the discharge/admit diagnosis. 05/09 07:15 Order name: Basic Metabolic Panel; Complete Time: 08:35 sigifredo 05/09 07:15 Order name: CBC with Diff; Complete Time: 08:35 sigifredo 05/09 07:15 Order name: LFT's; Complete Time: 08:35 sigifredo 05/09 07:15 Order name: Magnesium; Complete Time: 08:35 sigifredo 05/09 07:15 Order name: NT PRO-BNP; Complete Time: 08:35 sigifredo 05/09 07:15 Order name: PT-INR; Complete Time: 08:35 [facility] 05/09 07:15 Order name: Troponin HS; Complete Time: 08:35 [facility] 05/09 07:15 Order name: TSH; Complete Time: 08:35 [facility] 05/09 07:15 Order name: Lipase; Complete Time: 08:35 [facility] 05/09 07:15 Order name: Urinalysis w/ reflexes 05/09 07:15 Order name: XRAY Chest (1 view); Complete Time: 08:35 [facility] 05/09 07:33 Order name: CT Head Brain wo Cont; Complete Time: 08:35 [facility] 05/09 07:15 Order name: Cardiac monitoring; Complete Time: 07:24 [facility] 05/09 07:15 Order name: EKG - Nurse/Tech; Complete Time: 07:24 [facility] 05/09 07:15 Order name: IV Saline Lock; Complete Time: 07:24 [facility] 05/09 07:15 Order name: Labs collected and sent; Complete Time: 07:24 [facility] 05/09 07:15 Order name: O2 Per Protocol; Complete Time: 07:24 [facility] 05/09 07:15 Order name: O2 Sat Monitoring; Complete Time: 07:24 [facility] EC:33 Rate is 82 beats/min. Rhythm is regular. QRS [place] is Normal. FL interval is normal. QRS sigifredo interval is normal. QT interval is normal. No Q waves. T waves are Inverted in leads II, III, aVF, V3, V4, V5, V6. No ST changes noted. Clinical impression: NSR w/ Non-specific ST/T Changes and No evidence of ischemia. Interpreted by me. Reviewed by me. Administered Medications: 07:35 Drug: NS 0.9% IV 500 ml 500 ml IV at 1 bolus once; to be given as a bolus over 30 jl7 minutes Volume: 500 ml; Route: IV; Rate: 1 bolus; Site: right antecubital; 09:05 Follow up: Response: No adverse reaction; IV Status: Completed infusion; IV Intake: jl7 500ml 07:45 Drug: NS 0.9% IV 500 ml 500 ml IV at 100 ml/hr once; to be given as a bolus over 30 jl7 minutes Volume: 500 ml; Route: IV; Rate: 100 ml/hr; Site: right antecubital; 13:05 Follow up: Response: No adverse reaction; IV Status: Completed infusion jl7 07:45 Drug: Famotidine IVP 20 mg IVP once; dilute with 10 mL 0.9% NaCl; give over 2 minutes jl7 Route: IVP; Site: right antecubital; 09:05 Follow up: Response: No adverse reaction jl7 09:00 Not Given (Physician Discretion): [id number] mg PO once jl7 09:26 Drug: Magnesium Sulfate IVPB 2 grams IVPB once over 2 hrs Route: IVPB; Infused Over: 2 jl7 hrs; Site: right antecubital; 11:26 Follow up: Response: No adverse reaction; IV Status: Completed infusion jl7 Disposition Summary: 05/09/24 07:49 Hospitalization Ordered Notes: Hospitalization Status: Inpatient Admission sigifredo Provider: Dada Yeung cha Location: Telemetry/MedSurg (Inpatient) sigifredo Condition: Fair sigifredo Problem: new sigifredo Symptoms: have improved sigifredo Bed/Room Type: Standard sigifredo Room Assignment: sigifredo Diagnosis - Palpitations sigifredo - Dizziness and giddiness sigifredo - 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 EDMS EDMS 07:15 07:15 CBC+H.LAB.BRZ ordered. EDMS EDMS 07:15 07:15 HEPATIC FUNCTION+C.LAB.BRZ ordered. EDMS EDMS 07:15 07:15 MAGNESIUM+C.LAB.BRZ ordered. EDMS EDMS 07:15 07:15 PROBNP+C.LAB.BRZ ordered. EDMS EDMS 07:15 07:15 PROTIME (+INR)+COAG.LAB.BRZ ordered. EDMS EDMS 07:15 07:15 Troponin High Sensitivity+C.LAB.BRZ ordered. EDMS EDMS 07:15 07:15 THYROID STIMULAT HORMONE+C.LAB.BRZ ordered. EDMS EDMS 07:15 07:15 LIPASE+C.LAB.BRZ ordered. EDMS EDMS 07:15 07:15 Urinalysis+U.LAB.BRZ ordered. EDMS EDMS :15 07:15 Chest Single View+RAD.RAD.BRZ ordered. EDMS EDMS
[2024-05-09 07:52] LABS: Absolute Basophils 0.1 K/uL (0-0.5); Absolute Lymphocytes (CBC) 1.8 K/uL (0.7-4.9); Absolute Monocytes 0.6 K/uL (0.1-1.3); Basophils % 0.6 % (0-1.3); Eosinophils % 0.2 % (0-4.4); Hematocrit 41.1 % (36.0-45.0); Hemoglobin 13.6 g/dL (12.0-15.0); Lymphocytes % 15.7 % (15.3-44.8); MCH 29.3 pg (27.0-35.0); MCHC 33.1 g/dL (32.0-36.0); MCV 88.4 fL (80-100); MPV 8.2 fL (7.6-11.3); Monocytes % 5.6 % (3.3-12.3); Neutrophils % 77.9 % (41.7-73.7); Nucleated Red Blood Cells % 0.1 % (0-0); Platelets 264 thou/uL (152-406); RBC Red Blood Cell Count 4.65 M/uL (3.86-4.86); Red Cell Distribution Width 13.4 % (12.1-15.2)
[2024-05-09 07:55] LABS: PT Prothrombin Time 23.2 SECONDS (10.0-13.0); Protime INR 2.11
--- NOTE | 2024-05-09 08:10 | RAD REPORT ---
EXAMINATION: Head Brain Wo Cont CLINICAL INDICATION: Female, 83 years old.DIZZINESS TECHNIQUE: Axial CT images from the skull base to the vertex without intravenous contrast. Coronal an d sagittal reformatted images were created from the data set. One or more of the following dose reduction techniques were used: Automated exposure control, adjustment of the mA and/or kV according to patient size, and/or iterative reconstruction. Unless otherwise specified, incidental findings do not require dedicated imaging follow-up. [id number]. COMPARISON: No prior exam. FINDINGS: INTRACRANIAL: No acute intracranial hemorrhage. No hydrocephalus. No mass effect or midline shift. Mi ld chronic small vessel ischemic changes.Mild cerebral atrophy. VASCULATURE: No visualized abnormalities in the arteries or dural venous sinuses. SCALP/SKULL: No calvarial fracture identified. No acute soft tissue abnormality. SINUSES: The visualized paranasal sinuses are mostly clear. No significant mastoid fluid. IMPRESSION: No acute intracranial abnormality.
[2024-05-09 08:13] LABS: AST/SGOT 11 U/L (15-37); Albumin 2.7 g/dL (3.4-5.0); Albumin/Globulin Ratio 0.7 (1.1-1.8); Alkaline Phosphatase 63 U/L (45-117); Anion Gap 13.9 mEq/L (5.0-15.0); BUN Blood Urea Nitrogen 16 mg/dL (7-18); Bicarbonate 26 mEq/L (21-32); Bilirubin Total 0.5 mg/dL (0.2-1.0); Globulin 3.7 g/dL (2.3-3.5); Glomerular Filtration Rate 62 ml/min (=/>90); Glucose Level 103 mg/dL (74-106); Lipase 12 U/L (13-75); Magnesium 1.2 mg/dL (1.6-2.4); NT PRO-BNP 4559 pg/mL (<450); Potassium 3.9 mEq/L (3.5-5.1); Protein, Total 6.4 g/dL (6.4-8.2); Sodium Level 133 mEq/L (136-145); Troponin High Sensitivity 16.8 pg/mL (<58.9)
[2024-05-09 08:14] LABS: ALT/SGPT < 14 U/L (13-56); Bilirubin Direct < 0.2 mg/dL (0-0.2); Bilirubin Indirect, Calculated 0.3 mg/dL (0.2-0.8)
--- NOTE | 2024-05-09 08:24 | RAD REPORT ---
EXAM: Chest Single View HISTORY: 83 years Female CHEST PAIN COMPARISON: 11/21/2022 FINDINGS: LUNGS/PLEURA: The lungs are clear. No pleural effusions or pneumothorax. No pulmonary edema. CARDIAC/MEDIASTINUM: The cardiac silhouette is within normal limits. UPPER ABDOMEN: No significant abnormality. BONES: No acute abnormality. LINES/TUBES/OTHER: N/A IMPRESSION: No evidence of acute cardiopulmonary disease. No significant change from prior.
[2024-05-09] MEDS ORDERED: Magnesium Sulfate 2gm IVPB 2 G/50 ML BAG IV ONE (09:09)
[2024-05-09 09:18] LABS: Specific Gravity 1.027 (1.005-1.030); Sqamous Epithelial <5 /HPF (None Seen); Urine Bacteria <20 /HPF (<20); Urine Bilirubin NEGATIVE (Negative); Urine Blood Negative (Negative); Urine Clarity Extremely Turbid (Clear); Urine Color Yellow (Yellow); Urine Culture Reflex Order NOT NEEDED; Urine Glucose 4+ (Over) (Negative); Urine Ketones 2+ (Negative); Urine Microscopic Reflex YN ORDER UMIC; Urine Mucus Slight /HPF (None Seen); Urine Nitrite NEGATIVE (Negative); Urine Protein TRACE (Negative); Urine RBC <5 /HPF (None Seen); Urine Urobilinogen Normal (Normal); Urine WBC <5 /HPF (<5); Urine pH 5.5 (5.0-7.0)
[2024-05-09] MEDS ORDERED: MAGNESIUM CHLORIDE 64 MG TAB PO ONE (12:30)
[2024-05-09 13:31] VITALS: TEMP 97.8
[2024-05-09 13:43] VITALS: BP 115/71; O2SAT 98
--- NOTE | 2024-05-12 11:12 | EKG ---
Test Date: 2024-05-09 Test Time: 07:12:37 Senior Health Physics Technician: ABBIE MEASUREMENT RESULTS: Intervals: Rate: 96 AL: 146 QRSD: 80 QT: 344 QTc: 434 [place]: P: -1 AL: 146 QRS: 65 T: 266 INTERPRETIVE STATEMENTS: Sinus rhythm with premature supraventricular complexes ST & T wave abnormality, consider inferior ischemia Abnormal ECG Compared to ECG 11/21/2022 12:48:28 Atrial premature complex(es) now present Myocardial infarct finding no longer present ST (T wave) deviation still present Possible ischemia still present Electronically Signed On 05-12-24 11:03:09 CDT by Kahlil Sullivan
== END 2024-05-09 13:02 | disposition home or self-care (01) ==
LOC: ER 06:58
DX: R00.2 Palpitations (principal); R42 Dizziness and giddiness; U07.1 COVID-19; E83.42 Hypomagnesemia; Z79.01 Long term (current) use of anticoagulants; I48.91 Unspecified atrial fibrillation; I10 Essential (primary) hypertension; E11.9 Type 2 diabetes mellitus without complications
CPT/HCPCS: 96365; 96361; 93005; 85025; 81001; 80048; 36415; 83735; 85610; 80076; 84443; 84484; 83690; 83880; 70450; 71045; 96375; 99285; 96366; J3475; J7030

== ENCOUNTER 2024-12-16 09:51 | Emergency (ER) | payer OTHER, MEDICARE ==
--- NOTE | 2024-12-16 10:56 | RAD REPORT ---
EXAMINATION: CT HEAD WITHOUT CONTRAST CT CERVICAL SPINE WITHOUT CONTRAST CLINICAL INDICATION: Head and neck injury status post fall. Head and neck pain TECHNIQUE: Axial CT images from the skull base to the vertex without intravenous contrast. Axial CT i mages through the cervical spine were obtained without intravenous contrast. Sagittal and coronal reformatted images were created from the data set. Coronal and sagittal reformatted images were creat ed from the data set. One or more of the following dose reduction techniques were used: Automated exposure control, adjustment of the mA and/or kV according to patient size, and/or iterative reconstr uction. Unless otherwise specified, incidental findings do not require dedicated imaging follow-up. [id number]. Comparison: May 2024 FINDINGS: Large right parietal scalp hematoma. An intracranial bleed is not seen. Ventricles are normal in caliber. No significant hypodensity within the brain No extra-axial fluid collection. No fluid within the sinuses/mastoids No fracture or dislocation is seen involving the cervical spine. Spondylosis cervical spine. IMPRESSION: No acute intracranial abnormality noted A cervical fracture is not seen. If the patient continues to have symptoms to suggest acute DEPARTMENT HEAD/spinal pathology then MRI would be rec ommended
--- NOTE | 2024-12-16 11:05 | EDPHYS ---
Physician Documentation [facility] Name: Margarita Lockett Age: 84 yrs Sex: Female : 1940 Arrival Date: 12/16/2024 Time: 09:51 Bed 11 Private MD: ED Physician Reji Salinas HPI: 12/16 11:03 This 84 yrs old Female presents to ER via Ambulatory with complaints of Fall Injury. kb 11:03 Patient is an 84-year-old female who presents for head injury due to fall that occurred kb just prior to arrival. States she was raking, stumbled and fell backwards hitting her head. Denies LOC. Ambulatory with steady gait. Denies any other pains. States she only came in because her family made her.. Historical: - Allergies: 10:17 PENICILLINS; ll1 - PMHx: 10:17 Atrial fibrillation; diabetes mellitus; Hypertensive disorder; ll1 - Immunization history:: Adult Immunizations up to date. - Immunization history: Last tetanus immunization: - up to date. - Infectious Disease History:: Denies. - Social history:: Smoking status: Patient denies any tobacco usage or history of. ROS: 11:02 Constitutional: As per HPI kb Exam: 11:02 Constitutional: This is a well developed, well nourished patient who is awake, alert, kb and in no acute distress. ENT: Moist Mucous membranes Cardiovascular: Regular rate Respiratory: Respirations even and unlabored. No increased work of breathing. Talking in full sentences Skin: Warm, dry with normal turgor. Normal color. Neuro: Awake and alert, GCS 15, oriented to person, place, time, and situation. 11:02 Head/face: Noted is no obvious of injury or deformity except abrasion(s), that are moderate, of the right side of the back of head, hematoma, that is mild, of the right side of the back of head, 11:02 Musculoskeletal/extremity: Extremities: grossly normal except: noted in the right elbow: ecchymosis, ROM: intact in all extremities, Circulation is intact in all extremities. Sensation intact. Weight bearing: able to fully bear weight, Vital Signs: 10:30 BP 158 / 78; Pulse 75; Resp 17; Temp 97.8; Pulse Ox 97% ; Weight 60.78 kg; Height 5 ft. ll1 7 in. ; Pain 0/10; 11:25 BP 149 / 72; Pulse 72; Resp 16; Pulse Ox 97% ; ll1 10:30 Body Mass Index 20.99 (60.78 kg, 170.18 cm) ll1 10:30 Pain Scale: Adult ll1 [place] Coma Score: 10:20 Eye Response: spontaneous(4). Motor Response: obeys commands(6). Verbal Response: ll1 oriented(5). Total: 15. Trauma Score (Adult): 10:20 Eye Response: spontaneous(1); Verbal Response: oriented(1); Motor Response: obeys ll1 commands(2); Systolic BP: > 89 mm Hg(4); Respiratory Rate: 10 to 29 per min(4); [place] Score: 15; Trauma Score: 12 MDM: 09:57 Medical Screening Exam initiated kb 11:03 Differential diagnosis: abrasion, closed head injury, contusion, fracture. Data kb reviewed: vital signs, nurses notes. Test considered but Not performed: X-ray: X-rays of right arm considered but patient has no bony tenderness, full range of motion. Historians other than the Patient: Family Member: family. Counseling: I had a detailed discussion with the patient and/or guardian regarding the historical points, exam findings, and any diagnostic results supporting the discharge/admit diagnosis, radiology results, the need for outpatient follow up, a family practitioner, to return to the emergency department if symptoms worsen or persist or if there are any questions or concerns that arise at home. 12/16 10:20 Order name: CT Head C Spine; Complete Time: 11:02 kb Administered Medications: 11:25 Drug: Boostrix Tdap IM 0.5 ml IM once; as a single dose Route: IM; Site: left deltoid; ll1 12:56 Follow up: Response: No adverse reaction ll1 Disposition: 12/17 07:30 Co-signature as Attending Physician, Reji Salinas MD I agree with the assessment and sigifredo plan of care. Disposition Summary: 12/16/24 11:04 Discharge Ordered Notes: Location: Home kb Condition: Stable kb Diagnosis - Unspecified injury of head, initial encounter kb - Contusion of right forearm kb - Fall on same level, unspecified kb Followup: kb - With: Emergency Department - When: As needed - Reason: Worsening of condition Followup: kb - With: Private Physician - When: 2 - 3 days - Reason: Recheck today's complaints, Continuance of care, Re-evaluation by your physician Discharge Instructions: - Discharge Summary Sheet kb - Hematoma, [id number] kb - Head Injury, Adult, [id number] kb Forms: - Medication Reconciliation Form kb - Antibiotic Education kb - Prescription Opioid Use kb - Patient Portal Instructions kb - Leadership Thank You Letter kb Signatures: Dispatcher [employer] EDRadha Savage, BRANCH COORDINATOR-C BRANCH COORDINATOR-Reji Gunn MD MD cha Lewis, Lynsay, RN RN ll1
--- NOTE | 2024-12-16 11:05 | ER ---
Nurse's Notes [facility] Name: Margarita Lockett Age: 84 yrs Sex: Female : 1940 Arrival Date: 12/16/2024 Time: 09:51 Bed 11 Private MD: Diagnosis: Unspecified injury of head, initial encounter;Contusion of right forearm;Fall on same level, unspecified Presentation: 12/16 10:17 Coronavirus screen: Client denies travel out of the [place] in the last 14 days. At this ll1 time, the client does not indicate any symptoms associated with coronavirus-19. Ebola Screen: Patient denies travel to an Ebola-affected area in the 21 days before illness onset. Initial Sepsis Screen: Does the patient meet any 2 criteria? No. Patient's initial sepsis screen is negative. Does the patient have a suspected source of infection? No. Patient's initial sepsis screen is negative. Risk Assessment: Do you want to hurt yourself or someone else? Patient reports no desire to harm self or others. Onset of symptoms was December 16, 2024. 10:17 Method Of Arrival: Ambulatory ll1 10:17 Acuity: GURPREET 3 ll1 10:30 Chief complaint: Patient states: Fell in garden 20 min [employer]. Scalp hematoma with ll1 bleeding, denies LOC. R elbow skin tear. On Xarelto. 11:25 Care prior to arrival: None. Mechanism of Injury: Fall. Trauma event details: Injury ll1 occurred in the [facility] [place]. Triage Assessment: 10:17 General: Appears in no apparent distress. Behavior is calm, cooperative, appropriate ll1 for age. Pain: Denies pain. Neuro: Reports hit back of head, + hematoma, abrasion with minimal bleeding. Derm: Reports skin tear R elbow. Trauma Activation: Not Applicable Physician: ED Physician; Name: ; Notified At: ; Arrived At: Physician: General Surgeon; Name: ; Notified At: ; Arrived At: Physician: Radiology; Name: ; Notified At: ; Arrived At: Physician: Respiratory; Name: ; Notified At: ; Arrived At: Physician: Lab; Name: ; Notified At: ; Arrived At: Historical: - Allergies: 10:17 PENICILLINS; ll1 - PMHx: 10:17 Atrial fibrillation; diabetes mellitus; Hypertensive disorder; ll1 - Immunization history:: Adult Immunizations up to date. - Immunization history: Last tetanus immunization: - up to date. - Infectious Disease History:: Denies. - Social history:: Smoking status: Patient denies any tobacco usage or history of. Screenin:25 [facility] ED Fall Risk Assessment (Adult) History of falling in the last 3 months, ll1 including since admission Yes- physiologic fall (2 pts) Confusion or Disorientation No (0 pts) Intoxicated or Sedated No (0 pts) Impaired Gait Yes (1 pt) Mobility Assist Device Used Yes (1 pt) Altered Elimination No (0 pt) Score/Fall Risk Level 3 or more points = High Risk Maintained a safe environment, Hourly rounding (assess needs \T\ fall precautionary measures) done. Abuse screen: Denies threats or abuse. Nutritional screening: No deficits noted. Tuberculosis screening: No symptoms or risk factors identified. Primary Survey: 10:20 NO uncontrolled hemorrhage observed. A: The client is awake and alert. The airway is ll1 patent. Breathing/Chest: Spontaneous respiratory effort, equal unlabored respirations, breath sounds clear bilaterally, regular pattern, symmetrical chest rise and fall. Circulation: No external hemorrhage present. Regular and strong central pulse, skin warm/dry/normal color. Disability Client is alert. Exposure/Environment: Obvious injury(ies) are noted at this time: scalp and R elbow. 11:27 Reassessment Alertness and Airway: Awake and alert. The airway is patent. Breathing: ll1 Spontaneous respiratory effort, equal unlabored respirations, breath sounds clear bilaterally, regular pattern with symmetrical chest rise and fall. Circulation: No external hemorrhage noted. Regular and strong central pulse, skin warm/dry/normal color. Disability: Alert. Assessment: 11:25 Reassessment: No changes from previously documented assessment. Patient and/or family ll1 updated on plan of care and expected duration. Pain level reassessed. Patient is alert, oriented x 3, equal unlabored respirations, skin warm/dry/pink. Vital Signs: 10:30 BP 158 / 78; Pulse 75; Resp 17; Temp 97.8; Pulse Ox 97% ; Weight 60.78 kg; Height 5 ft. ll1 7 in. ; Pain 0/10; 11:25 BP 149 / 72; Pulse 72; Resp 16; Pulse Ox 97% ; ll1 10:30 Body Mass Index 20.99 (60.78 kg, 170.18 cm) ll1 10:30 Pain Scale: Adult ll1 [place] Coma Score: 10:20 Eye Response: spontaneous(4). Motor Response: obeys commands(6). Verbal Response: ll1 oriented(5). Total: 15. Trauma Score (Adult): 10:20 Eye Response: spontaneous(1); Verbal Response: oriented(1); Motor Response: obeys ll1 commands(2); Systolic BP: > 89 mm Hg(4); Respiratory Rate: 10 to 29 per min(4); [place] Score: 15; Trauma Score: 12 ED Course: 09:56 Patient arrived in ED. al6 09:57 Radha Rodríguez FNP-C [facility]. kb 09:57 Reji Salinas MD is Attending Physician. kb 10:17 Arm band placed on. ll1 10:17 Patient has correct armband on for positive identification. Provided Education on: ER ll1 procedures and process. 10:18 Triage completed. ll1 10:35 CT Head C Spine In Process Unspecified. EDMS 11:20 No provider procedures requiring assistance completed. Patient did not have IV access ll1 during this emergency room visit. Wound care: Patient tolerated well. cleaned scalp and R elbow with chlorhexidine soap and saline. Tolerated well. Band aid applied to R elbow skin tear. 12:55 Patient maintains SpO2 saturation greater than 95% on room air. ll1 12:55 Thermoregulation: n/a. ll1 Administered Medications: 11:25 Drug: Boostrix Tdap IM 0.5 ml IM once; as a single dose Route: IM; Site: left deltoid; ll1 12:56 Follow up: Response: No adverse reaction ll1 Medication: 12:53 Vaccine Information Statement (VIS) provided today. Questions and/or concerns ll1 addressed. VIS edition date: October 07, 2020. Intake: 10:20 PO: 0ml; Total: 0ml. ll1 Output: 10:20 Urine: 0ml; Total: 0ml. ll1 Outcome: 11:04 Discharge ordered by . kb 11:27 Patient left the ED. ll1 11:27 Discharged to home ambulatory, ll1 11:27 Condition: stable 11:27 Discharge instructions given to patient, family, Instructed on discharge instructions, follow up and referral plans. Demonstrated understanding of instructions, follow-up care, wound care, 12:55 Patient's length of stay was not longer than 2 hours. ll1 Signatures: Dispatcher [employer] Radha Wise, GREG CAGLE-Santa Rangel RN RN ll1 Trisha Martinez6
[2024-12-16] MEDS ORDERED: TDAP (DIPHTH,PERTUSS(ACELL),TET VAC) 0.5 ML VIAL IMVAC ONE (11:17)
[2024-12-16 11:39] VITALS: BP 158/78; TEMP 97.8; O2SAT 97
== END 2024-12-16 11:27 | disposition home or self-care (01) ==
LOC: ER 09:51
DX: S09.90XA Unspecified injury of head, initial encounter (principal); S50.11XA Contusion of right forearm, initial encounter; W18.30XA Fall on same level, unspecified, initial encounter; Z23 Encounter for immunization
CPT/HCPCS: 70450; 72125; 90715; 96372; 99285